=== PATIENT | female | born 1995 | race Caucasian/White ===

== ENCOUNTER → 2017-09-03 | Outpatient (CLI) | payer MEDICAID, SELFPAY | PROVIDERS: Visit Provider Nurse Practitioner Obstetrics & Gynecology | DX: Z30.09 Encounter for other general counseling and advice on contraception (principal); Z01.812 Encounter for preprocedural laboratory examination | CPT/HCPCS: 36415; 80048; 84703; 85025 ==

== ENCOUNTER → 2017-10-01 09:52 | Outpatient (CLI) | payer MEDICAID, SELFPAY ==
--- NOTE | 2017-10-01 09:58 | US_ITS ---
HISTORY: ITS.REASON: RT UPPER QUAD PAIN ORDERING PHYSICIAN: Jw Askew MD PATIENT AGE: 22 years COMPARISON: None FINDINGS: PANCREAS: Unremarkable. No obvious mass or abnormal fluid collection. No ductal dilatation LIVER: No focal liver lesions demonstrated. Homogeneous echogenicity. No intrahepatic biliary ductal dilatation evident RIGHT KIDNEY: Unremarkable. Normal size and echogenicity. No hydronephrosis GALLBLADDER: Wall echo shadow sign present in the gallbladder consistent with gallbladder filled with stones. Common bile duct is within normal limits. No gallbladder wall thickening or pericholecystic fluid. IMPRESSION: Cholelithiasis
== END ==
PROVIDERS: Family Provider Internal Medicine Adolescent Medicine; PCP Internal Medicine Adolescent Medicine; Visit Provider Internal Medicine Adolescent Medicine
DX: R10.11 Right upper quadrant pain (principal)
CPT/HCPCS: 76705

== ENCOUNTER → 2017-12-06 12:20 | Outpatient (CLI) | payer MEDICAID, SELFPAY ==
[2017-12-06 12:48] LABS: Basophils % 0.2 % (0.1-2.0); Eosinophils # 0.3 K/mm3 (0.0-0.4); Eosinophils % 5.1 % (0.1-12.0); Hematocrit 40.2 % (37.0-47.0); Lymphocytes # 1.7 K/mm3 (0.7-4.5); Lymphocytes % 29.8 K/mm3 (10-50); Mean Corpuscular HGB Conc 32.2 g/dL (31.8-35.4); Mean Corpuscular Hemoglobin 29.6 pg (27.0-31.2); Mean Corpuscular Volume 91.8 fl (81-99); Mean Platelet Volume 7.9 fl (7.4-10.4); Monocytes # 0.4 K/mm3 (0.1-1.0); Monocytes % 7.2 % (1.7-9.3); Neutrophils # 3.3 K/mm3 (1.8-7.8); Neutrophils % 57.7 % (37.0-80.0); Platelet Count 299 K/mm3 (142-424); Red Blood Count 4.38 M/mm3 (4.20-5.40); Red Cell Distribution Width 14.3 % (11.5-17.5); White Blood Count 5.7 K/mm3 (4.8-10.8)
[2017-12-06 13:12] LABS: Alanine Aminotransferase 45 U/L (12-78); Albumin Level 3.7 gm/dL (3.4-5.0); Alkaline Phosphatase 78 U/L (46-116); Anion Gap 11.6 mEq/L (5-15); Aspartate Amino Transferase 20 U/L (15-37); Blood Urea Nitrogen 7 mg/dL (7-18); Calcium 8.9 mg/dL (8.5-10.1); Carbon Dioxide 26 mmol/L (21.0-32.0); Chloride 105 mmol/L (98-107); Creatinine,Serum 0.57 mg/dL (0.55-1.02); Estimated Glomerular Filt Rate 130 ml/min (>60); GFR (African American) 158 ML/MIN (>60); Globulin 3.6 gm/dl (1.3-3.2); Glucose 85 mg/dL (74-106); Potassium 3.6 mmoL/L (3.5-5.1); Sodium 139 mmol/L (136-145); Total Protein,Serum 7.3 gm/dL (6.4-8.2)
[2017-12-06 13:36] LABS: HCG Qualitative, Serum Negative (Negative)
== END ==
PROVIDERS: Visit Provider Surgery
DX: Z01.818 Encounter for other preprocedural examination (principal); K80.10 Calculus of gallbladder with chronic cholecystitis without obstruction
CPT/HCPCS: 36415; 80053; 84703; 85025

== ENCOUNTER 2017-12-13 10:44 | Day surgery (SDC) | payer MEDICAID, SELFPAY ==
[2017-12-12 11:45] VITALS: BMI 26.7
[2017-12-13] VITALS (12 sets, daily range): BP systolic 112–146; BP diastolic 62–93; PULSE 57–82; RESP 12–22; TEMP 36.6–43; O2SAT 98–100
--- NOTE | 2017-12-13 13:51 | HMH.ANESCL ---
[facility] Anesthesia Checklist - Patient Identification Patient Identification: Arm Band, Verbal (Name & ) - Structural Data Admitted From: Home Consent for Planned Operative Procedure(s) Verified: Yes Verified Documents: Surgical Consent, History and Physical - NPO Status Verified Time NPO: 00:00 - Additional verifications Patient : No Anesthesia Reactions: No - Airway Assessment C-Spine Mobility Assessed: Yes TMJ Mobility Assessed: Yes Dentition: Good Dentition - Neurological Assessment Level of Consciousness: Awake Hx Seizures: No Numbness or tingling in extremities: No - Anesthesia Plan Anesthesia Risk discussed: Yes Anesthesia Plan: Verified ASA Class: II Anesthesia Type: General [facility] Anesthesia HX I have reviewed the patient's past medical history: Yes Medical History: Reports:: MRSA ( years ago ) Denies:: Cancer, Diabetes Mellitus Type 1, Diabetes Mellitus Type 2, Seizures Other Medical History: Denies: Blood Transfusion Reaction Comment: positive for smoking Other Surgeries: Yes: Tubal Ligation Amputation: No Fractures: No *Family Hx:: Hypertension, Cancer
--- NOTE | 2017-12-13 13:55 | P.PN_ITS ---
[facility] Anesthesia Checklist - Patient Identification Patient Identification: Arm Band, Verbal (Name & ) - Structural Data Admitted From: Home Consent for Planned Operative Procedure(s) Verified: Yes Verified Documents: Surgical Consent, History and Physical - NPO Status Verified Time NPO: 00:00 - Additional verifications Patient : No Anesthesia Reactions: No - Airway Assessment C-Spine Mobility Assessed: Yes TMJ Mobility Assessed: Yes Dentition: Good Dentition - Neurological Assessment Level of Consciousness: Awake Hx Seizures: No Numbness or tingling in extremities: No - Anesthesia Plan Anesthesia Risk discussed: Yes Anesthesia Plan: Verified ASA Class: II Anesthesia Type: General [facility] Anesthesia HX I have reviewed the patient's past medical history: Yes Medical History: Reports:: MRSA ( years ago ) Denies:: Cancer, Diabetes Mellitus Type 1, Diabetes Mellitus Type 2, Seizures Other Medical History: Denies: Blood Transfusion Reaction Comment: positive for smoking Other Surgeries: Yes: Tubal Ligation Amputation: No Fractures: No *Family Hx:: Hypertension, Cancer
--- NOTE | 2017-12-13 14:37 | HMH.OPNOTE ---
Date of procedure: 12/13/17 Pre-op Diagnosis:: Chronic calculus cholecystitis Post-op Diagnosis:: Same Procedure performed:: Laparoscopic cholecystectomy Surgeon:: Leo Key MD [employer]:: Terence Smith Anesthesia: GETA Estimated blood loss (mL): 10 Operative findings:: Gallbladder essentially full of stones Significant soft tissue thickening in and around the infundibulum Operative note:: After informed consent was obtained, the patient was taken to the operating room and placed in the supine position. General anesthesia was induced and the abdomen was prepped and draped in a sterile fashion. After infiltration with local anesthetic an infraumbilical incision was made. A Veress needle was placed in position. The abdomen was insufflated. A 5 mm optical trocar was placed in position. Under direct visualization, a 12 mm trocar was placed in the subxiphoid position and 2 additional 5 mm trocars were placed in the right upper quadrant. The gallbladder was elevated up and over the liver margin. The tissue around the cystic duct was carefully dissected. This tissue and all surrounding tissue was very thickened and dissection was very difficult. The decision was made to transect the gallbladder at the infundibulum and control the stump with Endoloops (?2). Harmonic leah were then utilized to dissect the gallbladder away from the liver margin with careful attention to the control of the cystic artery. The gallbladder was placed in a retrieval bag and removed through the subxiphoid trocar site. The right upper quadrant was thoroughly irrigated. No active bleeding or bile leak was noted. Fascia at the subxiphoid trocar site was reapproximated utilizing 0 Ethibond. The remaining trocars were removed. All wounds were irrigated and skin was closed with 4-0 Monocryl in a subcuticular fashion. Steri-Strips were applied. The patient's anesthetic agents were reversed and extubation was completed prior to transfer to recovery in stable condition. Condition: stable Disposition: PACU Specimens:: Gallbladder and contents Complications:: No immediate
--- NOTE | 2017-12-13 14:49 | HMH.ANESI ---
[facility] Anesthesia Record Part I Intake, IV Amount: 1,500 Estimated blood loss (mL): 0 Urine output (mL): 0 Blood Pressure: 135/82 SaO2: 100 Pulse Rate: 57 Respiratory Rate: 12 Temperature: 97.8 F Patient is:: Awake, Stable Stable to PACU at:: 14:50
--- NOTE | 2017-12-13 14:50 | P.PN_ITS ---
[facility] Anesthesia Record Part II Discharge Time: 15:20 Destination: [facility] PACU nurse assessment reviewed?: Yes Patient Condition:: Good Anesthesia Complications:: None
--- NOTE | 2017-12-13 14:50 | HMH.ANESII ---
[facility] Anesthesia Record Part II Discharge Time: 15:20 Destination: [facility] PACU nurse assessment reviewed?: Yes Patient Condition:: Good Anesthesia Complications:: None
--- NOTE | 2017-12-13 16:19 | PC.NURSE ---
2 lortab 5/325 given per md orders. see emar
== END 2017-12-13 16:15 | disposition home or self-care (01) ==
LOC: OR 10:45
PROVIDERS: Family Provider Internal Medicine Adolescent Medicine; PCP Internal Medicine Adolescent Medicine; Visit Provider Surgery
PROC: 0FT44ZZ Resection of Gallbladder, Percutaneous Endoscopic Approach (ICD-10-PCS; CPT 47562; principal; 2017-12-13 12:00)
DX: K80.10 Calculus of gallbladder with chronic cholecystitis without obstruction (principal)
CPT/HCPCS: 47562; 96374; J2405

== ENCOUNTER → 2020-12-05 08:56 | Outpatient (CLI) | payer MEDICAID, SELFPAY ==
--- NOTE | 2020-12-05 08:59 | US_ITS ---
PROCEDURE: US ABDOMEN LIMITED CLINICAL INDICATION: CIRRHOSIS OF LIVER COMPARISON: US [facility] US abdomen limited from 10/01/2017 FINDINGS: PANCREAS: The visualized pancreas is unremarkable. No obvious mass or abnormal fluid collection. No ductal dilatation LIVER: No focal liver lesions demonstrated. Homogeneous echotexture of the liver is noted. The common bile duct is distended measuring 1 centimeter. There is a focal hyperechogenicity noted in the distal common bile duct measuring 0.9 centimeters, likely represents a CBD calculus. There is mild intrahepatic ductal dilation. There is appropriate direction of blood flow within a non dilated portal vein RIGHT KIDNEY: Unremarkable. Normal size and echogenicity. No hydronephrosis GALLBLADDER: The gallbladder is surgically absent. IMPRESSION: CBD calculus measuring 0.9 centimeters, causes mild CBD dilatation. Mild intrahepatic ductal dilation is noted. Dictated by: Ember Marie 12/05/2020 11:53 Ember Marie in [facility] 12/05/2020 11:53
== END ==
PROVIDERS: PCP Internal Medicine Gastroenterology; Visit Provider Internal Medicine Gastroenterology
DX: K74.60 Unspecified cirrhosis of liver (principal)
CPT/HCPCS: 76705

== ENCOUNTER 2021-01-23 14:34 | Emergency (ER) | payer OTHER, SELFPAY ==
[2021-01-23 14:42] VITALS: BP 115/53; PULSE 66; RESP 16; TEMP 36.8; O2SAT 100; BMI 25.5
--- NOTE | 2021-01-23 15:21 | XR_ITS ---
PROCEDURE: XR LUMBAR SPINE 2-3V CLINICAL INDICATION: back pain, sciatica COMPARISON: No exams were available for comparison FINDINGS: Alignment: Normal alignment. Bony structures: No fracture or dislocation. No lytic or blastic change. Disc spaces: No significant degenerative change. The disc spaces are preserved. Additional findings: IMPRESSION: No acute findings. Dictated by: Paulino Aguiar MD 01/23/2021 16:18 Paulino Aguiar MD in [facility] 01/23/2021 16:18
--- NOTE | 2021-01-23 15:23 | HMH.EDGENADL ---
ED Disposition Clinical Impression: Left-sided low back pain with sciatica Qualifiers: Chronicity: acute Sciatica laterality: sciatica of left side Qualified Code(s): M54.42 - Lumbago with sciatica, left side Disposition: Home, Self-Care Condition on Discharge: Fair Instructions: DI for Sciatica, DI for Back Pain With Sciatica Additional Instructions: You have been evaluated for low back pain, left-sided sciatica. Please take anti-inflammatories and prednisone. Follow-up with your primary care doctor in 24 to 48 hours. Return to the emergency department if you have new or worsening pain, numbness or weakness in your legs or genital area. Referrals: wJ Askew MD [Primary Care Provider] - Time of Disposition: 16:47 - Critical Care Critical Care Time: No Attestation: On 01/23/21, the high probability of a clinically significant, sudden or life threatening deterioration of the following system(s) required my full and direct attention, intervention and personal management. The time I documented below is in addition to time spent performing reported procedures but includes the following listed in this critical care notation. Medical Decision Making - Medical Records Medical records reviewed: Yes: I reviewed the patient's medical records. - Brian Inquiry Pt receiving controlled substance: No Vital Signs: 01/23/21 14:42 01/23/21 17:02 Temperature 98.2 F 97.8 F Temperature Source Oral Oral Pulse Rate 48 L Pulse Rate [Left] 66 Respiratory Rate 16 18 Blood Pressure 97/60 L Blood Pressure [Right Arm] 115/53 L Blood Pressure Mean [Right Arm] 73 Blood Pressure Source Automatic Cuff Blood Pressure Source [Right Arm] Automatic Cuff Blood Pressure Position Sitting Blood Pressure Position [Right Arm] Sitting 02 Sat by Pulse Oximetry 100 Oxygen Delivery Method Room Air Room Air - Lab Data Lab Results 01/23/21 16:10: Urine Color Yellow, Urine Appearance Clear, Urine pH 6.0, Ur Specific [place] 1.025, Urine Protein Negative, Urine Glucose (UA) Negative, Urine Ketones Negative, Urine Blood Negative, Urine Nitrate Negative, Urine Bilirubin Negative, Urine Urobilinogen 2.0, Ur Leukocyte Esterase Negative, Urine RBC Occasional, Urine WBC 3-5, Ur Squamous Epith Cells 3-5, Urine Bacteria Trace 01/23/21 16:10: Urine HCG, Qual Negative Orders (Tests/Meds): ED MEDICATIONS Discontinued Medications Generic Name Dose Route Start Last Admin Trade Name Carlos PRN Reason Stop Dose Admin Ketorolac Tromethamine 15 mg 01/23/21 15:22 01/23/21 15:46 Ketorolac 30mg/Ml Vial IM 01/23/21 15:23 15 mg ONCE ONE Administration Methylprednisolone Sodium Succinate 40 mg 01/23/21 15:23 01/23/21 15:45 Methylprednisolone Sod Succ 40mg Vial IM 01/23/21 15:24 40 mg ONCE ONE Administration Medical Decision Narrative: In summary this is a 25-year-old female presenting to the emergency department with low back pain, sciatica on the left. Clinically stable on arrival. Vital signs within normal limits. Description of pain is not consistent with cauda equina syndrome. No saddle anesthesia. No changes in bowel or bladder habits. No red flag signs for spinal epidural abscess or other infection, including fevers and chills. No IV drug use. Will obtain screening plain film x-rays of the lumbar spine, urinalysis, urine test. Patient given 15 mg Toradol and 40 mg Solu-Medrol X-rays reassuring. On reassessment patient feeling better. Counseled her that she likely has sciatic back pain. Recommended close follow-up with her PCP. Given strict return precautions for any new or worsening symptoms, numbness or weakness in her legs or genital area. Given prescriptions for prednisone and 600 mg ibuprofen. Patient comfortable with plan and agreeable. General Adult HPI - General Chief complaint: Extremity Problem,Nontraumatic Stated complaint: back pain, left leg pain Time Seen by Provider: 0
[2021-01-23 16:20] LABS: Microscopic, Urine URINE MICROSCOPIC (MICROSCOPIC)
[2021-01-23 16:27] LABS: Appearance,Urine CLEAR (Clear); Bilirubin,Urine Negative (Negative); Blood, Urine Negative (Negative); Color,Urine YELLOW (Yellow); Glucose,Urine (UA) Negative (Negative); Ketones,Urine Negative (Negative); Leukocyte Esterase,Urine Negative (Negative); Nitrate,Urine Negative (Negative); Protein,Urine Negative (Negative); Specific Gravity, Urine 1.025 (1.005-1.030); Urine Pregnancy, HCG Qual. Negative (Negative)
[2021-01-23 16:41] LABS: Bacteria,Urine Trace /lpf; RBC,Urine Occasional #/hpf (0-3)
[2021-01-23 17:02] VITALS: BP 97/60; PULSE 48; RESP 18; TEMP 36.6; O2SAT 100
== END 2021-01-23 17:04 | disposition home or self-care (01) ==
PROVIDERS: Emergency Provider Emergency Medicine; PCP Internal Medicine Adolescent Medicine
DX: M54.42 Lumbago with sciatica, left side (principal); F17.290 Nicotine dependence, other tobacco product, uncomplicated
CPT/HCPCS: 72100; 81001; 81025; 96372; 99282

== ENCOUNTER → 2021-06-13 12:41 | Outpatient (CLI) | payer OTHER, SELFPAY ==
[2021-06-13 13:00] LABS: Basophils % 0.4 % (0.1-2.0); Eosinophils # 0.2 K/mm3 (0.0-0.4); Eosinophils % 4.1 % (0.1-12.0); Hematocrit 41.6 % (37.0-47.0); Hemoglobin 13.9 g/dL (12.2-16.2); Lymphocytes # 1.8 K/mm3 (0.7-4.5); Mean Corpuscular HGB Conc 33.5 g/dL (31.8-35.4); Mean Corpuscular Hemoglobin 33.1 pg (27.0-31.2); Mean Platelet Volume 8.2 fl (7.4-10.4); Monocytes # 0.4 K/mm3 (0.1-1.0); Monocytes % 7.3 % (1.7-9.3); Neutrophils # 2.9 K/mm3 (1.8-7.8); Neutrophils % 55.2 % (37.0-80.0); Platelet Count 311 K/mm3 (142-424); Red Cell Distribution Width 12.9 % (11.5-17.5); White Blood Count 5.3 K/mm3 (4.8-10.8)
[2021-06-13 13:20] LABS: Alanine Aminotransferase 16 U/L (12-78); Albumin/Globulin Ratio 1.6 (1.1-1.8); Alkaline Phosphatase 59 U/L (38-126); Anion Gap 8.9 mEq/L (5-15); Aspartate Amino Transferase 21 U/L (14-36); Bilirubin,Total 1.1 mg/dl (0.2-1.3); Blood Urea Nitrogen 5 mg/dl (7-17); Calcium 9.1 mg/dl (8.4-10.2); Carbon Dioxide 24 mmol/L (22.0-30.0); Chloride 109 mmol/L (98-107); Estimated Glomerular Filt Rate 191 ml/min (>60); GFR (African American) 232 ML/MIN (>60); Globulin 2.5 g/dL (1.3-3.2); Glucose 90 mg/dl (74-100); Potassium 3.9 mmoL/L (3.5-5.1); Sodium 138 mmol/L (136-145); Total Protein,Serum 6.5 g/dl (6.3-8.2)
== END ==
PROVIDERS: Visit Provider Internal Medicine Gastroenterology
DX: B18.1 Chronic viral hepatitis B without delta-agent (principal)
CPT/HCPCS: 36415; 80053; 85025

== ENCOUNTER 2021-09-26 18:38 | Emergency (ER) | payer OTHER, SELFPAY ==
[2021-09-26 19:35] VITALS: BP 135/82; PULSE 67; RESP 19; TEMP 37.1; O2SAT 100; BMI 25.8
--- NOTE | 2021-09-26 20:35 | CT_ITS ---
PROCEDURE INFORMATION: Exam: CT Abdomen And Pelvis With Contrast Exam date and time: 09/26/2021 8:35 PM Age: 26 years old Clinical indication: Nausea and vomiting; Prior surgery; Surgery type: Tubal; Additional info: N/v/d for 6 day TECHNIQUE: Imaging protocol: Computed tomography of the abdomen and pelvis with contrast. Radiation optimization: All CT scans at this facility use at least one of these dose optimization techniques: automated exposure control; mA and/or kV adjustment per patient size (includes targeted exams where dose is matched to clinical indication); or iterative reconstruction. Contrast material: ISOVUE; Contrast volume: 75 ml; Contrast route: IV; COMPARISON: ABDPELW CT abdomen pelvis w con 12/26/2017 7:07 PM FINDINGS: Liver: Normal. No mass. Gallbladder and bile ducts: Cholecystectomy. Pancreas: Normal. No ductal dilation. Spleen: Normal. No splenomegaly. Adrenal glands: Normal. No mass. Kidneys and ureters: Normal. No hydronephrosis. Stomach and bowel: Unremarkable. No obstruction. No mucosal thickening. Appendix: No evidence of appendicitis. Intraperitoneal space: Unremarkable. No free air. No significant fluid collection. Vasculature: Unremarkable. No abdominal aortic aneurysm. Lymph nodes: Unremarkable. No enlarged lymph nodes. Urinary bladder: Urinary bladder decompressed. Reproductive: Unremarkable as visualized. Bones/joints: Unremarkable. No acute fracture. Soft tissues: Unremarkable. IMPRESSION: No acute findings.
[2021-09-26 21:11] LABS: Basophils # 0.1 K/mm3 (0-0.2); Basophils % 1.4 % (0.1-2.0); Eosinophils # 0.1 K/mm3 (0.0-0.4); Eosinophils % 1.9 % (0.1-12.0); Hemoglobin 14.2 g/dL (12.2-16.2); Lymphocytes # 0.8 K/mm3 (0.7-4.5); Lymphocytes % 20.6 % (10-50); Mean Corpuscular Hemoglobin 32.8 pg (27.0-31.2); Mean Corpuscular Volume 99.4 fl (81-99); Mean Platelet Volume 8.2 fl (7.4-10.4); Monocytes # 0.2 K/mm3 (0.1-1.0); Monocytes % 4.7 % (1.7-9.3); Neutrophils # 2.9 K/mm3 (1.8-7.8); Neutrophils % 71.5 % (37.0-80.0); Platelet Count 182 K/mm3 (142-424); Red Blood Count 4.33 M/mm3 (4.20-5.40); Red Cell Distribution Width 12.4 % (11.5-17.5); White Blood Count 4.1 K/mm3 (4.8-10.8)
[2021-09-26 21:21] LABS: Influenza A, PCR Not Detected (NotDetected); Influenza B, PCR Not Detected (NotDetected)
[2021-09-26 21:27] LABS: Microscopic, Urine URINE MICROSCOPIC (MICROSCOPIC)
[2021-09-26 21:37] LABS: Appearance,Urine TURBID (Clear); Bilirubin,Urine Negative (Negative); Blood, Urine 3+ (Negative); Color,Urine RED (Yellow); Glucose,Urine (UA) Negative (Negative); Ketones,Urine 2+ (Negative); Leukocyte Esterase,Urine 1+ (Negative); Nitrate,Urine POSITIVE (Negative); PH,Urine 6.5 (5.0-8.5); Protein,Urine 2+ (Negative); Specific Gravity, Urine 1.025 (1.005-1.030)
[2021-09-26 21:39] LABS: Alanine Aminotransferase 60 U/L (12-78); Albumin Level 4.2 g/dl (3.5-5.0); Albumin/Globulin Ratio 1.5 (1.1-1.8); Alkaline Phosphatase 63 U/L (38-126); Amylase 47 U/L (30-110); Anion Gap 9.2 mEq/L (5-15); Aspartate Amino Transferase 58 U/L (14-36); Blood Urea Nitrogen 7 mg/dl (7-17); Calcium 8.9 mg/dl (8.4-10.2); Carbon Dioxide 28 mmol/L (22.0-30.0); Chloride 104 mmol/L (98-107); Creatinine Clearance Estimated 216 mL/min (50-200); Estimated Glomerular Filt Rate 147 ml/min (>60); GFR (African American) 178 ML/MIN (>60); Globulin 2.8 g/dL (1.3-3.2); Glucose 124 mg/dl (74-100); Lipase 35 U/L (23-300); Potassium 3.2 mmoL/L (3.5-5.1); Sodium 138 mmol/L (136-145)
[2021-09-26 21:42] LABS: Adenovirus F 40/41, stool Not Detected (NotDetected); Astrovirus Not Detected (NotDetected); Campylobacter Not Detected (NotDetected); Cryptosporidium Not Detected (NotDetected); Cyclospora Cayetanesis Not Detected (NotDetected); Entamoeba histolytica Not Detected (NotDetected); Enteroaggregative E coli Not Detected (NotDetected); Enteropathogenic E coli Not Detected (NotDetected); Enterotoxigenic E coli Not Detected (NotDetected); Giardia lamblia Not Detected (NotDetected); Norovirus Not Detected (NotDetected); Plesimonas Shigalloides, PCR Not Detected (NotDetected); Rotavirus A Not Detected (NotDetected); Salmonella, PCR Not Detected (NotDetected); Sapovirus Not Detected (NotDetected); Shiga-like toxin E coli Not Detected (NotDetected); Shigella Enterovasive E coli Not Detected (NotDetected); Vibrio Cholerae Not Detected (NotDetected); Vibrio, PCR Not Detected (NotDetected); Yersinia Entercolitica, PCR Not Detected (NotDetected)
[2021-09-26 21:45] LABS: C-Reactive Protein 0.5 mg/L (0-4)
[2021-09-26 21:49] LABS: RBC,Urine TNTC #/hpf (0-3)
[2021-09-26 21:54] LABS: Erythrocyte Sedimentation Rate 11 mm/hr (0-20)
[2021-09-26 22:22] LABS: Coronavirus 19, PCR Detected (NotDetected)
--- NOTE | 2021-09-26 22:29 | PC.NURSE ---
pt states she is feeling much better and ready to go home . Pt states she would like to go ahead and go without receiving her diarrhea panel results, MD notified.
--- NOTE | 2021-09-26 22:35 | HMH.EDNVD ---
ED Disposition Clinical Impression: COVID-19 Disposition: Home, Self-Care Condition on Discharge: Good Instructions: DI for Nausea -- Adult, DI for COVID-19 (Suspected or Confirmed ) Additional Instructions: fluids and call pcp for follow up -and recheck if needed Prescriptions: dexAMETHasone [Decadron] 6 mg PO DAILY #6 tab [facility]: [id number] Ondansetron [Zofran 4mg ODT] 4 mg PO TIDP PRN #21 tab PRN Reason: Nausea And Vomiting Transmission Status[facility] Referrals: Jw Askew MD [Primary Care Provider] - - Critical Care Critical Care Time: No Attestation: On 09/26/21, the high probability of a clinically significant, sudden or life threatening deterioration of the following system(s) required my full and direct attention, intervention and personal management. The time I documented below is in addition to time spent performing reported procedures but includes the following listed in this critical care notation. Medical Decision Making - Medical Records Medical records reviewed: Yes: I reviewed the patient's medical records. - Brian Inquiry Pt receiving controlled substance: No Vital Signs: 09/26/21 19:35 Temperature 98.8 F Temperature Source Oral Pulse Rate [Right] 67 Respiratory Rate 19 Blood Pressure [Right Arm] 135/82 Blood Pressure Mean [Right Arm] 99 02 Sat by Pulse Oximetry 100 Oxygen Delivery Method Room Air - Lab Data Lab results reviewed: Yes: I reviewed the patient's lab results. Lab Results 09/26/21 20:40: Urine Color Red, Urine Appearance Turbid, Urine pH 6.5, Ur Specific [place] 1.025, Urine Protein 2+, Urine Glucose (UA) Negative, Urine Ketones 2+, Urine Blood 3+, Urine Nitrate Positive, Urine Bilirubin Negative, Urine Urobilinogen 1.0, Ur Leukocyte Esterase 1+ A, Urine RBC Tntc 09/26/21 20:40: WBC 4.1 L, RBC 4.33, Hgb 14.2, Hct 43.0, MCV 99.4 H, MCH 32.8 H, MCHC 33.0, RDW 12.4, Plt Count 182, MPV 8.2, Neut % (Auto) 71.5, Lymph % (Auto) 20.6, [place] % (Auto) 4.7, Eos % (Auto) 1.9, Baso % (Auto) 1.4, Neut # (Auto) 2.9, Lymph # (Auto) 0.8, [place] # (Auto) 0.2, Eos # (Auto) 0.1, Baso # (Auto) 0.1, ESR 11 09/26/21 20:40: Sodium 138, Potassium 3.2 L, Chloride 104, Carbon Dioxide 28, Anion Gap 9.2, BUN 7, Creatinine 0.50 L, Estimated Creat Clear 216, Estimated GFR 147, Est GFR ( Amer) 178, Glucose 124 H, Calcium 8.9, Total Bilirubin 1.0, AST 58 H, ALT 60, Alkaline Phosphatase 63, C-Reactive Protein 0.5, Total Protein 7.0, Albumin 4.2, Globulin 2.8, Albumin/Globulin Ratio 1.5, Amylase 47, Lipase 35 09/26/21 20:40: SARS-CoV-2 (PCR) Detected A, Influenza A Untype (PCR) Not detected, Influenza Type B (PCR) Not detected Result diagrams: 09/26/21 20:40 09/26/21 20:40 Orders (Tests/Meds): ED MEDICATIONS Generic Name Dose Route Start Last Admin Trade Name Freq PRN Reason Stop Dose Admin Sodium Chloride 1,000 mls @ 999 mls/hr 09/26/21 20:45 09/26/21 20:53 Sod Chlor 0.9% 1000ml Bag IV 09/26/21 21:45 999 mls/hr .Q1H1M ADELFO Administration Sodium Chloride 8 ml 09/26/21 20:38 09/26/21 20:53 Sodium Chloride 0.9% 10ml Vial IV 10/26/21 20:37 8 ml NEEDED PRN Administration dilute pepcid Discontinued Medications Generic Name Dose Route Start Last Admin Trade Name Freq PRN Reason Stop Dose Admin Famotidine 20 mg 09/26/21 20:38 09/26/21 20:52 Famotidine 20mg/2ml Vial IV 09/26/21 20:39 20 mg ONCE ONE Administration Hydromorphone HCl 1 mg 09/26/21 21:18 09/26/21 21:31 Hydromorphone 2mg/Ml Syringe IV 09/26/21 21:19 Not Given ONCE ONE Iopamidol 75 ml 09/26/21 21:33 09/26/21 21:37 Iopamidol-370 (76%);100ml Bottle IV 09/26/21 21:34 75 ml ONCE ONE Administration Ketorolac Tromethamine 30 mg 09/26/21 20:37 09/26/21 20:52 Ketorolac 30mg/Ml Vial IV 09/26/21 20:38 30 mg ONCE ONE Administration Metoclopramide HCl 10 mg 09/26/21 20:38 09/26/21 20:53
[2021-09-26 22:37] VITALS: BP 124/78; PULSE 64; RESP 18; TEMP 36.9; O2SAT 99
[2021-09-26 22:38] LABS: Procalcitonin < 0.030 ng/mL (0.0-2.0)
[2021-09-27 00:21] LABS: Clostridium Difficile A/B, PCR Detected (NotDetected)
--- NOTE | 2021-09-27 16:52 | PC.NURSE ---
Called and spoke with patient about her diarrhea panel results and advised her I would be calling in a prescription for flagyl for her. She requested that it be called into [facility]. Called and spoke with pharmacist at about prescription.
== END 2021-09-26 22:50 | disposition home or self-care (01) ==
PROVIDERS: Emergency Provider Emergency Medicine; PCP Internal Medicine Adolescent Medicine
DX: U07.1 COVID-19 (principal); R42 Dizziness and giddiness; F17.290 Nicotine dependence, other tobacco product, uncomplicated
CPT/HCPCS: 74177; 80053; 81001; 82150; 83690; 84145; 85025; 85651; 86140; 87086; 87507; 96365; 96375; 99283; C9803; J2405; Q9967; U0003; U0005

== ENCOUNTER → 2022-09-24 07:48 | Outpatient (CLI) | payer OTHER, SELFPAY ==
--- NOTE | 2022-09-24 07:52 | US_ITS ---
FINAL REPORT TECHNIQUE: Sonographic images of the right upper quadrant were obtained. CLINICAL HISTORY: HEP B , PATIENT STATED THIS IS A FOLLOW UP COMPARISON: December 05, 2020 FINDINGS: Sonographic images of the right upper quadrant were obtained in the longitudinal and transverse planes. PANCREAS: Unremarkable. LIVER: Homogeneous. No focal hepatic lesion. No intrahepatic biliary ductal dilatation. GALLBLADDER: Surgically absent. . COMMON DUCT: 9 mm. Dilated for age even with prior cholecystectomy. RIGHT KIDNEY: The right kidney measures 11.4 cm. There is no hydronephrosis, mass, or stone. FREE FLUID: None. IMPRESSION: Unremarkable appearance of the liver. Dilated common bile duct even with cholecystectomy. Previously seen duct stone not seen on today's exam. Reviewed, Interpreted and Dictated by Juanita Yang MD Transcribed by Lindsey Bae Authenticated and . [facility]
== END ==
PROVIDERS: PCP Internal Medicine Adolescent Medicine
DX: B18.1 Chronic viral hepatitis B without delta-agent (principal)
CPT/HCPCS: 76705

== ENCOUNTER 2022-10-15 18:13 | Emergency (ER) | payer OTHER, SELFPAY ==
[2022-10-15 18:14] VITALS: BP 131/74; PULSE 77; RESP 20; TEMP 36.7; O2SAT 100; BMI 24.9
--- NOTE | 2022-10-15 19:35 | EXP.UTC ---
Discharge Plan Disposition Patient Disposition: Home, Self-Care Condition: Good Prescriptions Prescriptions: New amoxicillin [amoxicillin] 500 mg tablet 500 mg PO TID 10 Days Qty: 30 0RF benzonatate [benzonatate] 100 mg capsule 100 mg PO TIDP PRN (Reason: Cough) Qty: 30 0RF methylprednisolone 4 mg Tablets,Dose Pack 4 mg PO DIRECTED Qty: 21 0RF No Action tenofovir disoproxil fumarate 300 MG tablet 300 mg PO DAILY MDD 300 Referrals Follow up/Referrals: Jw Askew MD [Primary Care Provider] - See instructions Activity Restrictions/Add. Instructions Additional Instructions/Restrictions: Drink plenty of fluids. Take tylenol or ibuprofen for pain or fever. Take the medications as directed. Follow up with your regular doctor. GO TO THE ER FOR ANY WORSENING SYMPTOMS Throw your tooth brush away and get a new one. Don't start the oral steroids until tomorrow, since you had the shot here today. Clinical Impressions Clinical Impression: Strep throat Stand Alone Forms Stand Alone Forms: Work/School Release Instructions Patient Instructions: Strep Throat, DI for Strep Throat Discharge ED Provider: Armen Cast [facility] General Stated complaint: Sore throat,Left earache Time Seen by Provider: 10/15/22 19:34 History of Present Illness Provider Complaint: She states that for the past 3 days she has had a worsening sore throat, chills, ear pain and malaise. Related Data Home Medications Medication Instructions Recorded Confirmed tenofovir disoproxil fumarate 300 300 mg PO DAILY na 01/23/21 10/08/22 mg tablet Previous Rx's Medication Instructions Recorded amoxicillin 500 mg tablet 500 mg PO TID 10 days #30 tabs 10/15/22 benzonatate 100 mg capsule 100 mg PO TIDP PRN Cough #30 caps 10/15/22 methylprednisolone 4 mg tablets in 4 mg PO DIRECTED #21 tabs 10/15/22 a dose pack Allergies Allergy/AdvReac Type Severity Reaction Status Date / Time No Known Allergies Allergy Verified 10/15/22 19:51 [facility] Disclaimer: The information contained in this section may have been updated after the patient was seen, as this information can be updated by other users. Surgical History H/O tubal ligation History of cholecystectomy [place] teeth removed Family History Other Alcoholism Anemia Asthma Cancer Diabetes Hyperlipidemia Hypertension Substance abuse Thyroid disorder Social History Smoking Status: Current every day smoker tobacco type: e-cigarettes alcohol intake: former substance use type: former substance user and IV drugs current occupational status: unemployed Travel in the last 8 weeks: None household members: significant other housing: house caffeine: Yes ROS Obtained: Yes All systems reviewed & no additional complaints except as documented Constitutional Constitutional: Reports chills and Reports fever(s) Eyes Eyes: Denies eye discharge ENT Ears, Nose, Mouth, and Throat: Reports as per HPI Cardiovascular Cardiovascular: Denies chest pain Respiratory Respiratory: Denies chest congestion and Reports cough Gastrointestinal Gastrointestingal: Reports nausea; Denies abdominal pain, constipation, cramping, diarrhea or vomiting Musculoskeletal Musculoskeletal: Denies arthralgias Integumentary/Breasts Skin/Breast: Denies rash Neurologic Neurologic: Denies paresthesias Physical Exam General General appearance: alert and in no apparent distress Head Head exam: atraumatic, normocephalic and normal inspection Eye Eye exam: Present normal appearance, PERRL and EOMI ENT ENT exam: Present mucous membranes moist and normal external ear exam Expanded ENT Exam TM/Canal exam: Bilateral TM: erythema and bulging Nose exam: Absent sinus tenderness Mouth exa
[2022-10-15 19:42] LABS: UTC Strep Screen (Rapid) Positive (Negative)
[2022-10-15 20:15] VITALS: BP 131/74; PULSE 77; RESP 20; TEMP 36.7; O2SAT 100
== END 2022-10-15 20:15 | disposition home or self-care (01) ==
PROVIDERS: Emergency Provider Nurse Practitioner Family; PCP Internal Medicine Adolescent Medicine
DX: J02.0 Streptococcal pharyngitis (principal)
CPT/HCPCS: 87880; 99212; 99213; G0463

== ENCOUNTER 2022-12-05 13:38 | Emergency (ER) | payer OTHER, SELFPAY ==
[2022-12-05 13:45] VITALS: BP 123/65; PULSE 70; RESP 20; TEMP 36.9; O2SAT 98; BMI 23.3
--- NOTE | 2022-12-05 13:51 | EXP.UTC ---
Discharge Plan Disposition Patient Disposition: Home, Self-Care Condition: Good Prescriptions Prescriptions: New ondansetron 4 mg Tablet,Disintegrating 4 mg PO Q8H PRN (Reason: Nausea) Qty: 12 0RF No Action tenofovir disoproxil fumarate 300 MG tablet 300 mg PO DAILY MDD 300 Referrals Follow up/Referrals: Jw Askew MD [Primary Care Provider] - See instructions Activity Restrictions/Add. Instructions Additional Instructions/Restrictions: Drink plenty of fluids. Take tylenol or ibuprofen for pain or fever. Take the medications as directed. Follow up with your regular doctor. GO TO THE ER FOR ANY WORSENING SYMPTOMS Clinical Impressions Clinical Impression: Acute viral syndrome Instructions Patient Instructions: DI for Viral Syndrome Discharge ED Provider: Armen Cast [facility] General Stated complaint: Shakey, dizzy Time Seen by Provider: 12/05/22 13:56 History of Present Illness Provider Complaint: She states that for the past 1 day she has had chills, body aches and low grade fever. Related Data Home Medications Medication Instructions Recorded Confirmed tenofovir disoproxil fumarate 300 300 mg PO DAILY na 01/23/21 10/31/22 mg tablet Previous Rx's Medication Instructions Recorded ondansetron 4 mg disintegrating 4 mg PO Q8H PRN Nausea #12 tabs 12/05/22 tablet Allergies Allergy/AdvReac Type Severity Reaction Status Date / Time No Known Allergies Allergy Verified 12/05/22 13:54 [facility] Disclaimer: The information contained in this section may have been updated after the patient was seen, as this information can be updated by other users. 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 current occupational status: unemployed Travel in the last 8 weeks: None household members: significant other housing: house caffeine: Yes ROS Obtained: Yes All systems reviewed & no additional complaints except as documented Constitutional Constitutional: Reports chills and Reports fever(s) Eyes Eyes: Denies eye discharge ENT Ears, Nose, Mouth, and Throat: Reports as per HPI Cardiovascular Cardiovascular: Denies chest pain Respiratory Respiratory: Denies chest congestion and Reports cough Gastrointestinal Gastrointestingal: Reports nausea; Denies abdominal pain, constipation, cramping, diarrhea or vomiting Musculoskeletal Musculoskeletal: Denies arthralgias Integumentary/Breasts Skin/Breast: Denies rash Neurologic Neurologic: Denies paresthesias Physical Exam General General appearance: alert and in no apparent distress Head Head exam: atraumatic, normocephalic and normal inspection Eye Eye exam: Present normal appearance, PERRL and EOMI ENT ENT exam: Present normal exam, normal oropharynx, mucous membranes moist, TM's normal bilaterally and normal external ear exam Neck Neck exam: Present normal inspection, full ROM and trachea midline; Absent meningismus or lymphadenopathy Chest Chest inspection: Present normal inspection and symmetric chest wall rise; Absent tenderness Respiratory Respiratory exam: Present normal lung sounds bilaterally; Absent respiratory distress Cardiovascular Cardiovascular exam: Present regular rate and normal rhythm; Absent JVD Abdominal Exam Abdominal exam: Present soft and normal bowel sounds; Absent distention, tenderness or guarding Extremities Exam Extremities exam: Present normal inspection, full ROM and normal
[2022-12-05 14:34] VITALS: BP 123/65; PULSE 70; RESP 20; TEMP 36.9; O2SAT 98
== END 2022-12-05 14:33 | disposition home or self-care (01) ==
PROVIDERS: Emergency Provider Nurse Practitioner Family; PCP Internal Medicine Adolescent Medicine
DX: R42 Dizziness and giddiness (principal); R11.0 Nausea; R50.9 Fever, unspecified; B34.9 Viral infection, unspecified
CPT/HCPCS: 99212; 99214; G0463

== ENCOUNTER 2022-12-07 15:47 | Emergency (ER) | payer OTHER, SELFPAY ==
[2022-12-07 15:49] VITALS: BP 124/67; PULSE 89; RESP 16; TEMP 36.5; O2SAT 99; BMI 23.6
[2022-12-07 16:00] VITALS: BP 120/74; PULSE 77; O2SAT 97
--- NOTE | 2022-12-07 16:00 | HMH.EDGENADL ---
Discharge Plan Disposition Patient Disposition: Home, Self-Care Prescriptions Prescriptions: No Action tenofovir disoproxil fumarate 300 MG tablet 300 mg PO DAILY MDD 300 ondansetron 4 mg Tablet,Disintegrating 4 mg PO Q8H PRN (Reason: Nausea) Qty: 12 0RF Referrals Follow up/Referrals: Jw Askew MD [Primary Care Provider] - See instructions Activity Restrictions/Add. Instructions Additional Instructions/Restrictions: Her momPlease follow-up with your primary care doctor. Your symptoms persist. Please return to the emergency department any worsening symptoms. Clinical Impressions Clinical Impression: Acute viral syndrome, Near syncope Discharge ED Provider: Olivia Johnson General Adult HPI General Chief complaint: Dizziness Stated complaint: dizzy,light headed Time Seen by Provider: 12/07/22 16:00 History of Present Illness HPI narrative: 27-year-old female presenting today with intermittent lightheaded symptoms. She states that earlier in the week on Saturday she started having nonspecific lightheadedness that she describes as feeling like she is in a tunnel with a sensation of feeling like she is in a pass out but she never does lose consciousness. There is no rotary component to this. She states that this is not associated with position. She also states that on Saturday she had some body aches and chills as well as some diarrhea and felt as though she was having COVID which is how she felt in the past went to the urgent treatment clinic and they told her that they would not do any viral testing because it was too early in the course to do anything about it. She denies any chest pain or shortness of breath. She currently is without symptoms. However her most recent episode of lightheaded sensation occurred just prior to arrival. No history of any heart or lung problems. She has no family history of any sudden cardiac . Related Data Home Medications Medication Instructions Recorded Confirmed tenofovir disoproxil fumarate 300 300 mg PO DAILY na 01/23/21 10/31/22 mg tablet Previous Rx's Medication Instructions Recorded ondansetron 4 mg disintegrating 4 mg PO Q8H PRN Nausea #12 tabs 12/05/22 tablet Allergies Allergy/AdvReac Type Severity Reaction Status Date / Time No Known Allergies Allergy Verified 12/05/22 13:54 [facility] Disclaimer: The information contained in this section may have been updated after the patient was seen, as this information can be updated by other users. 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 current occupational status: unemployed Travel in the last 8 weeks: None household members: significant other housing: house caffeine: Yes ROS Obtained: Yes All systems reviewed & no additional complaints except as documented Physical Exam General General appearance: alert ENT ENT exam: Present normal exam and TM's normal bilaterally Respiratory Respiratory exam: Present normal lung sounds bilaterally; Absent respiratory distress, wheezes or stridor Cardiovascular Cardiovascular exam: Present regular rate; Absent tachycardia Abdominal Exam Abdominal exam: Present soft; Absent distention, tenderness, guarding or rebound Neurological Exam Neurological exam: Present alert and oriented X3 Medical Decision Making Brian Inquiry Pt receiving controlled substance: No Vital Signs: 12/07/22 15:49 12/07/22 16:00 12/07/22 16:30
[2022-12-07 16:05] LABS: POC Glucose,Bedside 95 (70-110)
--- NOTE | 2022-12-07 16:06 | PC.NURSE ---
DR KRUSE AT BEDSIDE
[2022-12-07 16:18] LABS: Basophils # 0.1 K/mm3 (0-0.2); Basophils % 0.8 % (0.1-2.0); Eosinophils # 0.3 K/mm3 (0.0-0.4); Eosinophils % 3.9 % (0.1-12.0); Hematocrit 44.7 % (37.0-47.0); Hemoglobin 14.4 g/dL (12.2-16.2); Lymphocytes # 1.6 K/mm3 (0.7-4.5); Lymphocytes % 22.6 % (10-50); Mean Corpuscular HGB Conc 32.1 g/dL (31.8-35.4); Mean Corpuscular Volume 99.5 fl (81-99); Mean Platelet Volume 7.7 fl (7.4-10.4); Monocytes # 0.4 K/mm3 (0.1-1.0); Monocytes % 5.7 % (1.7-9.3); Neutrophils # 4.8 K/mm3 (1.8-7.8); Platelet Count 307 K/mm3 (142-424); Red Cell Distribution Width 12.7 % (11.5-17.5); White Blood Count 7.1 K/mm3 (4.8-10.8)
[2022-12-07 16:20] LABS: Chloride 104 mmol/L (98-107); Potassium 3.9 mmoL/L (3.5-5.1); Sodium 138 mmol/L (136-145)
[2022-12-07 16:23] LABS: Anion Gap 10.9 mEq/L (5-15); Carbon Dioxide 27 mmol/L (22.0-30.0)
[2022-12-07 16:30] VITALS: BP 120/74; PULSE 56; O2SAT 97
--- NOTE | 2022-12-07 16:38 | ECG_ITS ---
APPROVED REPORT Exam: Resting ECG HR:49 bpm ECG Measurements Heart Rate 49 AXES VA 120 P 55 QRSd 87 QRS 68 QT 422 T 60 QTc 392 Conclusion SINUS BRADYCARDIA BORDERLINE ECG UNCONFIRMED REPORT Electronically signed by : Jw Askew MD 12/10/2022 19:53:00
[2022-12-07 16:39] LABS: Troponin I < 0.01 ng/ml (0.00-0.034)
[2022-12-07 16:42] LABS: Coronavirus 19, PCR Not Detected (NotDetected); Influenza A, PCR Not Detected (NotDetected); Influenza B, PCR Not Detected (NotDetected)
--- NOTE | 2022-12-07 16:42 | PC.NURSE ---
covid swab sent to lab at this time
[2022-12-07 16:54] LABS: HCG Qualitative, Serum Negative (Negative)
[2022-12-07 17:00] VITALS: BP 118/71; PULSE 66; O2SAT 100
[2022-12-07 17:24] LABS: Alanine Aminotransferase 23 U/L (12-78); Albumin Level 4.4 g/dl (3.5-5.0); Albumin/Globulin Ratio 1.6 (1.1-1.8); Alkaline Phosphatase 70 U/L (38-126); Aspartate Amino Transferase 23 U/L (14-36); Bilirubin,Total 1.4 mg/dl (0.2-1.3); Blood Urea Nitrogen 9 mg/dl (7-17); Calcium 9.3 mg/dl (8.4-10.2); Creatinine Clearance Estimated 159 mL/min (50-200); Estimated Glomerular Filt Rate 118 ml/min (>60); GFR (African American) 143 ML/MIN (>60); Globulin 2.7 g/dL (1.3-3.2); Glucose 94 mg/dl (74-100); Magnesium 2.1 mg/dl (1.6-2.3); Phosphorous 3.1 mg/dl (2.5-4.5); Total Protein,Serum 7.1 g/dl (6.3-8.2)
[2022-12-07 17:52] VITALS: BP 106/58; PULSE 62; RESP 16; TEMP 36.6; O2SAT 100
== END 2022-12-07 17:55 | disposition home or self-care (01) ==
PROVIDERS: Emergency Provider Student in an Organized Health Care Education/Training Program; PCP Internal Medicine Adolescent Medicine
DX: R55 Syncope and collapse (principal); B34.9 Viral infection, unspecified
CPT/HCPCS: 80053; 82962; 83735; 84100; 84484; 84703; 85025; 93005; 96360; 96374; 99284; 99285; C9803; J2405; U0003; U0005

== ENCOUNTER → 2022-12-10 15:46 | Outpatient (CLI) | payer OTHER, SELFPAY ==
[2022-12-10 17:25] LABS: Alanine Aminotransferase 25 U/L (12-78); Albumin Level 4.4 g/dl (3.5-5.0); Alkaline Phosphatase 68 U/L (38-126); Aspartate Amino Transferase 25 U/L (14-36); Bilirubin,Indirect 1.5 mg/dL (0.0-0.9); Bilirubin,Total 1.5 mg/dl (0.2-1.3); Bilirubin,Unconjugated 1.8 mg/dL (0.0-1.1); Total Protein,Serum 6.9 g/dl (6.3-8.2)
== END ==
PROVIDERS: PCP Internal Medicine Adolescent Medicine; Visit Provider Physician Assistant
DX: L29.9 Pruritus, unspecified (principal)
CPT/HCPCS: 36415; 80076

== ENCOUNTER → 2023-06-14 07:41 | Outpatient (CLI) | payer OTHER, SELFPAY ==
--- NOTE | 2023-06-14 07:55 | XR_ITS ---
FINAL REPORT TECHNIQUE: Sacroiliac joints 3 views CLINICAL HISTORY: LBP W [place] COMPARISON: None FINDINGS: SACROILIAC JOINTS: 3 views of the sacroiliac joints failed to reveal any evidence of acute bony abnormality. No significant degenerative changes noted in the sacroiliac joints. The portions of the pelvis and lower lumbar spine visualized are unremarkable as well. IMPRESSION: Unremarkable sacroiliac joints. Reviewed, Interpreted and Dictated by Jeff Barbosa III, MD Transcribed by Belen Beltran Authenticated and . [facility]
--- NOTE | 2023-06-14 07:55 | XR_ITS ---
FINAL REPORT CLINICAL HISTORY: low back pain COMPARISON: None FINDINGS: 5 views of the lumbar spine were obtained. There is no evidence of fracture or dislocation. Postoperative changes are present in the right upper quadrant of the abdomen. The bowel gas pattern is nonspecific with a large amount of stool present. There is a mild rightward curvature of the lumbar spine. Disc spaces are preserved. No paraspinous soft tissue abnormalities identified. IMPRESSION: Mild rightward curvature of the lumbar spine without acute bony abnormality. Nonspecific gas pattern with large stool burden. Reviewed, Interpreted and Dictated by Jeff Barbosa III, MD Transcribed by Belen Beltran Authenticated and [facility]
[2023-06-14 08:37] LABS: Basophils % 0.2 % (0.1-2.0); Eosinophils # 0.1 K/mm3 (0.0-0.4); Hematocrit 41.5 % (37.0-47.0); Hemoglobin 13.7 g/dL (12.2-16.2); Lymphocytes # 1.1 K/mm3 (0.7-4.5); Lymphocytes % 11.7 % (10-50); Mean Corpuscular HGB Conc 32.9 g/dL (31.8-35.4); Mean Corpuscular Hemoglobin 32.3 pg (27.0-31.2); Mean Corpuscular Volume 98.1 fl (81-99); Monocytes # 0.5 K/mm3 (0.1-1.0); Monocytes % 5.3 % (1.7-9.3); Neutrophils # 7.6 K/mm3 (1.8-7.8); Neutrophils % 81.8 % (37.0-80.0); Platelet Count 288 K/mm3 (142-424); Red Blood Count 4.23 M/mm3 (4.20-5.40); Red Cell Distribution Width 12.7 % (11.5-17.5); White Blood Count 9.3 K/mm3 (4.8-10.8)
[2023-06-14 10:56] LABS: Alanine Aminotransferase 23 U/L (12-78); Albumin Level 4.3 g/dl (3.5-5.0); Albumin/Globulin Ratio 1.6 (1.1-1.8); Alkaline Phosphatase 57 U/L (38-126); Anion Gap 9.8 mEq/L (5-15); Aspartate Amino Transferase 21 U/L (14-36); Bilirubin,Total 1.8 mg/dl (0.2-1.3); Blood Urea Nitrogen 5 mg/dl (7-17); Calcium 9.7 mg/dl (8.4-10.2); Carbon Dioxide 27 mmol/L (22.0-30.0); Chloride 106 mmol/L (98-107); Estimated Glomerular Filt Rate 146 ml/min (>60); GFR (African American) 177 ML/MIN (>60); Globulin 2.7 g/dL (1.3-3.2); Glucose 92 mg/dl (74-100); Magnesium 1.7 mg/dl (1.6-2.3); Potassium 3.8 mmoL/L (3.5-5.1); Sodium 139 mmol/L (136-145)
[2023-06-14 11:26] LABS: Thyroid Stimulating Hormone 0.55 uIU/mL (0.465-4.68)
[2023-06-14 11:45] LABS: Vitamin B12 451 pg/mL (239-931)
[2023-06-14 12:51] LABS: Iron 102 ug/dL (37-170)
[2023-06-14 13:02] LABS: Total Iron Binding Capacity 398 ug/dL (265-497)
[2023-06-14 13:27] LABS: Ferritin 32.4 ng/ml (6.24-137)
== END ==
PROVIDERS: PCP Internal Medicine Adolescent Medicine; Visit Provider Physician Assistant
DX: M54.42 Lumbago with sciatica, left side (principal)
CPT/HCPCS: 36415; 72110; 72202; 80053; 82607; 82728; 83540; 83550; 83735; 84443; 85025

== ENCOUNTER 2023-10-03 13:33 | Outpatient (CLI) | payer OTHER, SELFPAY ==
[2023-10-03 14:03] LABS: INR 1.14 (0.9-1.1); Prothrombin Time 12.2 seconds (10.1-12.5)
[2023-10-03 14:08] LABS: Basophils # 0.1 K/mm3 (0-0.2); Basophils % 0.8 % (0.1-2.0); Eosinophils # 0.4 K/mm3 (0.0-0.4); Eosinophils % 4.4 % (0.1-12.0); Lymphocytes # 1.8 K/mm3 (0.7-4.5); Lymphocytes % 22.4 % (10-50); Mean Corpuscular Hemoglobin 35.4 pg (27.0-31.2); Mean Corpuscular Volume 98.3 fl (81-99); Mean Platelet Volume 7.8 fl (7.4-10.4); Monocytes # 0.6 K/mm3 (0.1-1.0); Monocytes % 6.9 % (1.7-9.3); Neutrophils # 5.2 K/mm3 (1.8-7.8); Neutrophils % 65.5 % (37.0-80.0); Platelet Count 246 K/mm3 (142-424); Red Blood Count 3.96 M/mm3 (4.20-5.40); Red Cell Distribution Width 12.5 % (11.5-17.5)
[2023-10-03 14:12] LABS: Chloride 104 mmol/L (98-107); Potassium 3.6 mmoL/L (3.5-5.1); Sodium 137 mmol/L (136-145)
[2023-10-03 14:14] LABS: Alanine Aminotransferase 26 U/L (12-78); Aspartate Amino Transferase 25 U/L (14-36); Blood Urea Nitrogen 8 mg/dl (7-17); Estimated Glomerular Filt Rate 145 ml/min (>60); GFR (African American) 175 ML/MIN (>60)
[2023-10-03 14:15] LABS: Albumin Level 4.2 g/dl (3.5-5.0); Albumin/Globulin Ratio 1.8 (1.1-1.8); Alkaline Phosphatase 59 U/L (38-126); Anion Gap 11.6 mEq/L (5-15); Bilirubin,Total 1.3 mg/dl (0.2-1.3); Calcium 9.2 mg/dl (8.4-10.2); Carbon Dioxide 25 mmol/L (22.0-30.0); Globulin 2.3 g/dL (1.3-3.2); Glucose 76 mg/dl (74-100); Total Protein,Serum 6.5 g/dl (6.3-8.2)
[2023-10-04 08:01] LABS: Hep A Ab, Total Negative (Negative)
[2023-10-05 16:43] LABS: HBV IU/mL HBV DNA not detected IU/mL (.)
== END 2023-10-03 23:59 ==
PROVIDERS: PCP Internal Medicine Adolescent Medicine; Visit Provider Internal Medicine Gastroenterology
DX: B18.1 Chronic viral hepatitis B without delta-agent (principal); Z86.19 Personal history of other infectious and parasitic diseases
CPT/HCPCS: 36415; 80053; 85025; 85610; 86708; 87517

== ENCOUNTER 2023-10-10 09:20 | Emergency (ER) | payer OTHER, SELFPAY ==
[2023-10-10 09:29] VITALS: BP 138/58; PULSE 71; RESP 16; TEMP 36.7; O2SAT 100; BMI 25.0
--- NOTE | 2023-10-10 09:45 | HMH.EDGENADL ---
Discharge Plan Disposition Patient Disposition: Home, Self-Care Condition: Good Prescriptions Prescriptions: New lidocaine [Lidoderm] 5 % adhesive patch,medicated 1 patch topical DAILY Qty: 15 0RF Rx Instructions: leave on most painful area for up to 12 hrs prednisone 50 mg tablet 50 mg PO DAILY 5 Days Qty: 5 0RF No Action tenofovir disoproxil fumarate 300 MG tablet 300 mg PO DAILY MDD 300 ondansetron 4 mg Tablet,Disintegrating 4 mg PO Q8H PRN (Reason: Nausea) Qty: 12 0RF Referrals Follow up/Referrals: Jw Askew MD [Primary Care Provider] - See instructions Activity Restrictions/Add. Instructions Additional Instructions/Restrictions: You were evaluated in the emergency department today. Please follow-up with your primary care provider for reassessment. 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 Return to the emergency department for new or worsening such as significant worsening pain, numbness, tingling, or other concerns. Clinical Impressions Clinical Impression: Acute right-sided low back pain Stand Alone Forms Stand Alone Forms: Work/School Release Instructions Patient Instructions: DI for Low Back Pain, DI for Acute Pain -- Adult Discharge ED Provider: Leah Cazares General Adult HPI General Chief complaint: PAIN Stated complaint: back pain Time Seen by Provider: 10/10/23 09:29 Mode of Arrival: Ambulatory Source of Information: Patient Limitations: No Limitations Description of Symptoms (Recalled from ER Triage Doc. by RN): pt c/o middle back pain 8/10 with movement and a 3/10 when stationary. pt states the pain is sharp in nature and does not radiate anywhere. pt states this has been ongoing x2 wks. pt denies injury History of Present Illness HPI narrative: This patient is a 28-year-old female with history of hepatitis B presenting to the emergency department for evaluation with concern for right-sided low back pain. She states that it is worse with movement. She states that it is nonradiating. It feels like a tightness/squeezing. No numbness, tingling, saddle anesthesia, incontinence, weakness, or other concerns. No recent fevers, chills, urinary symptoms, or other infectious symptoms. This is been going on approximately 2 weeks. She does note that she has a chronic history of back pain and is about to start physical therapy, however this has been manageable and she has not been able to sleep. She has prior imaging of her spine that has shown arthritis. No recent falls or traumatic injuries noted. Related Data Home Medications Medication Instructions Recorded Confirmed tenofovir disoproxil fumarate 300 300 mg PO DAILY na 01/23/21 10/31/22 mg tablet Previous Rx's Medication Instructions Recorded ondansetron 4 mg disintegrating 4 mg PO Q8H PRN Nausea #12 tabs 12/05/22 tablet lidocaine 5 % topical patch 1 patch topical DAILY #15 ea 10/10/23 (Lidoderm) prednisone 50 mg tablet 50 mg PO DAILY 5 days #5 tabs 10/10/23 Allergies Allergy/AdvReac Type Severity Reaction Status Date / Time No Known Allergies Allergy Verified 12/05/22 13:54 [facility] Disclaimer: The information contained in this section may have been updated after the patient was seen, as this information can be updated by other users. 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 current occupational status: unemployed Travel in the last 8 weeks: None household members: significant other housing: house caffeine: Yes ROS Obtained: Yes All systems reviewed & no additional complaints except as documented Physical Exam General General appearance: alert and in no apparent distress Head Head exam: atraumatic and normocephalic Eye Eye exam: Present normal appearance, PERRL and EOMI ENT ENT exam: Present normal exam, normal oropharynx, mucous membranes moist and normal external ear exam Neck Neck exam: Present normal inspection, full ROM and trachea midline; Absent tenderness Chest Chest inspection: Present normal inspection and symmetric chest wall rise; Absent tenderness Respiratory Respiratory exam: Present normal lung sounds bilaterally; Absent respiratory distress, wheezes, stridor or accessory muscle use Cardiovascular Cardiovascular exam: Present regular rate and normal rhythm Abdominal Exam Abdominal exam: Present soft; Absent distention, tenderness or guarding Extremities Exam Extremities exam: Present normal inspection, full ROM and normal capillary refill; Absent tenderness or edema Back Exam Back exam: Present full ROM and paraspinal tenderness (Right-sided paraspinal at the thoracolumbar junction. No significant midline tenderness.); Absent vertebral tenderness Neurological Exam Neurological exam: Present alert, oriented X3, CN II-XII intact and normal gait; Absent motor sensory deficit Psychiatric Psychiatric exam: Present normal affect and normal mood Skin Skin exam: Present warm and dry Medical Decision Making Medical Records Medical records reviewed: Yes I reviewed the patient's medical records. Brian Inquiry Pt receiving controlled substance: No Vital Signs: 10/10/23 09:29 10/10/23 11:39 Temperature 98.1 F 98.0 F Temperature Source Oral Oral Pulse Rate 60 Pulse Rate [Right] 71 Respiratory Rate 16 16 Blood Pressure 113/64 Blood Pressure [Right Arm] 138/58 L Blood Pressure Mean [Right Arm] 84 Blood Pressure Source Automatic Cuff Blood Pressure Source [Right Arm] Automatic Cuff Blood Pressure Position Sitting Blood Pressure Position [Right Arm] Sitting 02 Sat by Pulse Oximetry 100 Oxygen Delivery Method Room Air Lab Data Lab results reviewed: Yes I reviewed the patient's lab results. Lab Results 10/10/23 10:43: Urine Color Yellow, Urine Appearance Clear, Urine pH 7.0, Ur Specific [place] 1.015, Urine Protein Negative, Urine Glucose (UA) Negative, Urine Ketones Negative, Urine Blood Negative, Urine Nitrate Negative, Urine Bilirubin Negative, Urine Urobilinogen 0.2, Ur Leukocyte Esterase Trace, Urine RBC None, Urine WBC None, Ur Squamous Epith Cells Occasional, Urine Bacteria Trace Orders (Tests/Meds): ED MEDICATIONS Discontinued Medications Generic Name Dose Route Start Last Admin Trade Name Carlos PRN Reason Stop Dose Admin Acetaminophen 1,000 mg 10/10/23 09:44 10/10/23 09:51 Acetaminophen 500mg Tab PO 10/10/23 09:45 1,000 mg ONCE ONE Administration Ketorolac Tromethamine 30 mg 10/10/23 09:44 10/10/23 09:52 Ketorolac 30mg/Ml Vial IM 10/10/23 09:45 30 mg ONCE ONE Administration Lidocaine 1 each 10/10/23 09:44 10/10/23 09:52 Lidocaine 5% Transdermal Patch TP 10/10/23 09:45 1 each ONCE ONE Administration Methocarbamol 500 mg 10/10/23 09:44 10/10/23 09:51 Methocarbamol 500mg Tablet PO 10/10/23 09:45 500 mg ONCE ONE Administration Prednisone 40 mg 10/10/23 09:44 10/10/23 09:51 Prednisone 20mg Tab PO 10/10/23 09:45 40 mg ONCE ONE Administration ORDERS Category Date Time Status UA [Urinalysis and Microscopic] Stat Lab 10/10/23 10:43 Completed Medical Decision Narrative: In summary, this patient is a 28-year-old female presenting to the Emergency Department for evaluation of atraumatic right-sided low back pain. Differential diagnoses considered include but are not limited to musculoskeletal strain/pain, disc herniation, lumbar fracture, pyelonephritis, cystitis, ureterolithiasis. Ruling out the most morbid conditions drove assessment. On exam, the patient is well-appearing. She has had no recent traumatic injuries and has no midline bony tenderness. I considered obtaining CT scan of the lumbar spine, however I do not feel that this would belt changer given this. She is neurologically intact without suggestion of spinal cord compression. No numbness, tingling, saddle anesthesia, or other concerns. No fevers or infectious symptoms, and no urinary symptoms. It is worse with movement and she has right-sided paraspinal tenderness, so I feel that this is likely musculoskeletal. Patient is agreeable to try medications to assess for symptomatic improvement. She was given oral prednisone, IM Toradol, oral Tylenol, oral Robaxin, and a topical Lidoderm patch. On reassessment, patient is resting comfortably with improvement in symptoms. She remains neurologically intact. Given this, feel that she is appropriate for discharge with instructions for supportive management of low back pain at this time. She was given prescription for 5-day course of prednisone as well as Lidoderm patches. She was given instructions for close follow-up with her primary care provider, instructions to continue plan for outpatient PT, and strict return precautions. She was discharged after all questions were answered. Critical Care Critical Care Time Critical Care Time: No
[2023-10-10] MEDS: ACETAMINOPHEN 500MG TAB 1000 MG PO (09:51)
[2023-10-10] MEDS: predniSONE 20MG TAB 40 MG PO (09:51)
[2023-10-10] MEDS: METHOCARBAMOL 500MG TABLET 500 MG PO (09:51)
[2023-10-10] MEDS: LIDOCAINE 5% TRANSDERMAL PATCH 1 EACH TP (09:52)
[2023-10-10] MEDS: KETOROLAC 30MG/ML VIAL 30 MG IM (09:52)
[2023-10-10 10:46] LABS: Microscopic, Urine URINE MICROSCOPIC (MICROSCOPIC)
[2023-10-10 10:52] LABS: Appearance,Urine CLEAR (Clear); Bilirubin,Urine Negative (Negative); Blood, Urine Negative (Negative); Color,Urine YELLOW (Yellow); Glucose,Urine (UA) Negative (Negative); Ketones,Urine Negative (Negative); Leukocyte Esterase,Urine TRACE (Negative); Nitrate,Urine Negative (Negative); Protein,Urine Negative (Negative); Specific Gravity, Urine 1.015 (1.005-1.030); Urobilinogen,Urine 0.2 EU/dl (0.2)
[2023-10-10 11:07] LABS: Bacteria,Urine Trace /lpf; Squamous Epithelial Cell,Urine Occasional #/hpf (0-5)
--- NOTE | 2023-10-10 11:34 | PC.NURSE ---
DR MARINO AT BEDSIDE TO UPDATE PT
[2023-10-10 11:39] VITALS: BP 113/64; PULSE 60; RESP 16; TEMP 36.7; O2SAT 100
== END 2023-10-10 11:40 | disposition home or self-care (01) ==
PROVIDERS: Emergency Provider Emergency Medicine; PCP Internal Medicine Adolescent Medicine
DX: M54.50 Low back pain, unspecified (principal)
CPT/HCPCS: 81001; 96372; 99283

== ENCOUNTER 2023-10-18 14:00 | Outpatient (RCR) | payer OTHER, SELFPAY | END 2023-10-18 15:00 | disposition home or self-care (01) | LOC: PT 14:00 | PROVIDERS: Visit Provider Internal Medicine Adolescent Medicine | DX: M46.1 Sacroiliitis, not elsewhere classified (principal); M54.50 Low back pain, unspecified | CPT/HCPCS: 97163 ==

== ENCOUNTER 2023-10-27 11:56 | Emergency (ER) | payer OTHER, SELFPAY ==
[2023-10-27 12:05] VITALS: BP 106/69; PULSE 69; RESP 18; TEMP 36.6; O2SAT 100; BMI 24.5
--- NOTE | 2023-10-27 12:24 | ED_ITS ---
Discharge Plan Disposition Patient Disposition: Home, Self-Care Condition: Good Prescriptions Prescriptions: New oseltamivir [Tamiflu] 75 mg capsule 75 mg PO Q12H 5 Days Qty: 10 0RF No Action tenofovir disoproxil fumarate 300 MG tablet 300 mg PO DAILY MDD 300 Referrals Follow up/Referrals: Jw Askew MD [Primary Care Provider] - See instructions Activity Restrictions/Add. Instructions Additional Instructions/Restrictions: * Start Tamiflu today if you are going to take it. Discussed risk and possible benefits. * Lots of rest * Increase Fluids water, Gatorade, powerade, pedialyte,if infant/toddler/child * Alternate Tylenol and / or ibuprofen as discussed for fever, aches, chills Follow up IMMEDIATELY with your family doctor for new or worsening Symptoms OR no noticeable improvement over the next 48-72 hours, 911 for difficulty or breathing * You or your child area contagious until no fever, aches, chills for 24 hours with medication for symptoms * Help Prevent the spread of influenza: * ?Wash your hands often. Use soap and water. Wash your hands after you use the bathroom, change a child's diapers, or sneeze. Wash your hands before you prepare or eat food. Use gel hand cleanser that has 60% alcohol, when soap and water are not available. Do not touch your eyes, nose, or mouth unless you have washed your hands first. * Cover your mouth when you sneeze or cough. Cough into a tissue or the bend of your arm. If you use a tissue, throw it away immediately and wash your hands. * Clean shared items with a germ-killing equipment cleaner. Clean table surfaces, doorknobs, and light switches. Do not share towels, silverware, and dishes with people who are sick. Wash bed sheets, towels, silverware, and dishes with soap and water. * Wear a mask over your mouth and nose if you are sick. The face mask may help protect others from becoming infected with the flu. Wear the mask when in common areas of your home or if you seek care with a healthcare provider.Stay away from others if you are sick. Stay at home until 24 hours after your fever and symptoms are gone Clinical Impressions Clinical Impression: Influenza Instructions Patient Instructions: DI for Influenza -- Adult, Influenza, Oseltamivir Discharge ED Provider: Amna Jones [facility] [place] HPI General Stated complaint: body aches, ear pain, fever, chills Mode of Arrival: Ambulatory Source of Information: Patient Limitations: No Limitations Time Seen by Provider: 10/27/23 12:24 Description of Symptoms (Recalled from Triage Doc. by RN): Pt's symptoms are fever, bilatereal ear pain, MOSES, body aches, and runny nose. HEENT Symptoms (Recalled from RN notes): Yes Resp Symptoms (Recalled from RN notes): No Skin Symptoms (Recalled from RN notes): No MS Symptoms (Recalled from RN notes): No Functional Status (Recalled from RN notes): n/a History of Present Illness Provider Complaint: Patient states that yesterday she was feeling achy and having nasal congestion and sneezing states that after she got home she started with body aches, chills, fever, and pain/pressure in her ears States feels like she may have flu or COVID so she came in Related Data Home Medications Medication Instructions Recorded Confirmed tenofovir disoproxil fumarate 300 300 mg PO DAILY na 01/23/21 10/27/23 mg tablet Previous Rx's Medication Instructions Recorded oseltamivir 75 mg capsule (Tamiflu) 75 mg PO Q12H 5 days #10 caps 10/27/23 Allergies Allergy/AdvReac Type Severity Reaction Status Date / Time No Known Allergies Allergy Verified 12/05/22 13:54 Worker's Comp Is this a Worker's Comp case?: No [facility] Disclaimer: The information contained in this section may have been updated after the patient was seen, as this information can be updated by other users. 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 current occupational status: unemployed Travel in the last 8 weeks: None household members: significant other housing: house caffeine: Yes ROS Obtained: Yes All systems reviewed & no additional complaints except as documented and Yes Systems reviewed as appropriate & no additional complaints except as documented Constitutional Constitutional: Reports system reviewed and no additional complaints, except as documented, Reports as per HPI, Reports body ache, Reports chills, Reports fever(s) and Reports headache(s) ENT Ears, Nose, Mouth, and Throat: Reports system reviewed and no additional complaints, except as documented, Reports as per HPI, Reports headache(s), Reports nasal congestion and Reports nasal discharge Cardiovascular Cardiovascular: Reports system reviewed and no additional complaints, except as documented and Reports as per HPI Respiratory Respiratory: Reports system reviewed and no additional complaints, except as documented, Reports as per HPI and Reports cough Gastrointestinal Gastrointestingal: Reports system reviewed and no additional complaints, except as documented and as per HPI Musculoskeletal Musculoskeletal: Reports system reviewed and no additional complaints, except as documented and Reports as per HPI Neurologic Neurologic: Reports headache(s) Physical Exam General General appearance: alert and in no apparent distress ENT ENT exam: Present mucous membranes moist and TM's normal bilaterally Expanded ENT Exam Nose exam: Absent sinus tenderness Throat exam: Present normal inspection Respiratory Respiratory exam: Present normal lung sounds bilaterally; Absent respiratory distress or wheezes Cardiovascular Cardiovascular exam: Present regular rate, normal rhythm and normal heart sounds Abdominal Exam Abdominal exam: Present soft and normal bowel sounds; Absent distention or tenderness Neurological Exam Neurological exam: Present alert, oriented X3 and normal gait Medical Decision Making Brian Inquiry Pt receiving controlled substance: No Brian was queried for this patient: No Vital Signs: 10/27/23 12:05 Temperature 97.9 F Temperature Source Oral Pulse Rate [Right Radial] 69 Respiratory Rate 18 Blood Pressure [Right Arm] 106/69 L Blood Pressure Mean [Right Arm] 81 Blood Pressure Source [Right Arm] Automatic Cuff Blood Pressure Position [Right Arm] Sitting 02 Sat by Pulse Oximetry 100 Oxygen Delivery Method Room Air Lab Data Lab results reviewed: Yes I reviewed the patient's lab results. Orders (Tests/Meds): ORDERS Category Date Time Status Rapid PCR Covid and Flu A/B Stat Lab 10/27/23 12:20 Ordered
[2023-10-27 12:36] LABS: UTC Influenza A Antigen Negative (Negative); UTC Influenza B Antigen Positive (Negative)
[2023-10-27 12:43] VITALS: BP 106/69; PULSE 60; RESP 18; TEMP 36.6; O2SAT 100
== END 2023-10-27 12:43 | disposition home or self-care (01) ==
PROVIDERS: Emergency Provider Nurse Practitioner; PCP Internal Medicine Adolescent Medicine
DX: J10.1 Influenza due to other identified influenza virus with other respiratory manifestations (principal); R50.9 Fever, unspecified; R09.81 Nasal congestion; H92.03 Otalgia, bilateral
CPT/HCPCS: 87804; 99212; 99214; G0463

== ENCOUNTER 2024-05-25 09:29 | Outpatient (CLI) | payer OTHER, SELFPAY ==
[2024-05-25 10:16] LABS: Basophils % 0.7 % (0.1-2.0); Eosinophils # 0.2 K/mm3 (0.0-0.4); Eosinophils % 5.2 % (0.1-12.0); Hemoglobin 13.7 g/dL (12.2-16.2); Lymphocytes # 1.1 K/mm3 (0.7-4.5); Lymphocytes % 24.6 % (10-50); Mean Corpuscular HGB Conc 31.1 g/dL (31.8-35.4); Mean Corpuscular Hemoglobin 32.4 pg (27.0-31.2); Mean Platelet Volume 8.1 fl (7.4-10.4); Monocytes # 0.3 K/mm3 (0.1-1.0); Monocytes % 7.7 % (1.7-9.3); Neutrophils # 2.7 K/mm3 (1.8-7.8); Neutrophils % 61.8 % (37.0-80.0); Platelet Count 290 K/mm3 (142-424); Red Blood Count 4.23 M/mm3 (4.20-5.40); Red Cell Distribution Width 12.7 % (11.5-17.5); White Blood Count 4.4 K/mm3 (4.8-10.8)
[2024-05-25 10:24] LABS: INR 1.02 (0.9-1.1); Prothrombin Time 11.4 seconds (10.1-12.5)
[2024-05-25 10:59] LABS: Albumin Level 4.1 g/dl (3.5-5.0); Chloride 109 mmol/L (98-107); Potassium 4.1 mmoL/L (3.5-5.1); Sodium 139 mmol/L (136-145)
[2024-05-25 11:01] LABS: Blood Urea Nitrogen 9 mg/dl (7-17)
[2024-05-25 11:02] LABS: Alanine Aminotransferase 23 U/L (12-78); Albumin/Globulin Ratio 1.6 (1.1-1.8); Alkaline Phosphatase 57 U/L (38-126); Anion Gap 7.1 mEq/L (5-15); Aspartate Amino Transferase 21 U/L (14-36); Bilirubin,Total 1.2 mg/dl (0.2-1.3); Calcium 9.2 mg/dl (8.4-10.2); Carbon Dioxide 27 mmol/L (22.0-30.0); Estimated Glomerular Filt Rate 117 ml/min (>60); GFR (African American) 142 ML/MIN (>60); Globulin 2.6 g/dL (1.3-3.2); Glucose 79 mg/dl (74-100); Lipase 73 U/L (23-300); Total Protein,Serum 6.7 g/dl (6.3-8.2)
[2024-05-26 08:35] LABS: AFP, Tumor Marker 3.4 ng/mL (0.0-4.7)
== END 2024-05-25 23:59 | disposition home or self-care (01) ==
PROVIDERS: Physician Assistant; PCP Internal Medicine Adolescent Medicine; Visit Provider Internal Medicine Gastroenterology
DX: Z86.19 Personal history of other infectious and parasitic diseases (principal); B18.1 Chronic viral hepatitis B without delta-agent; M54.50 Low back pain, unspecified
CPT/HCPCS: 36415; 80053; 82105; 83690; 85025; 85610

== ENCOUNTER 2024-06-20 09:57 | Emergency (ER) | payer OTHER, SELFPAY ==
[2024-06-20 10:10] VITALS: BP 117/72; PULSE 83; RESP 18; TEMP 36.6; O2SAT 100; BMI 26.6
[2024-06-20] MEDS: DEXAMETHASONE 4MG/ML 1ML VIAL 4 MG IM (10:50)
[2024-06-20] MEDS: KETOROLAC 60MG/2ML VIAL 60 MG IM (10:50)
--- NOTE | 2024-06-20 10:54 | ED_ITS ---
Discharge Plan Disposition Patient Disposition: Home, Self-Care Condition: Good Prescriptions Prescriptions: No Action tenofovir disoproxil fumarate 300 MG tablet 300 mg PO DAILY MDD 300 Referrals Follow up/Referrals: Jw Askew MD [Primary Care Provider] - See instructions Activity Restrictions/Add. Instructions Additional Instructions/Restrictions: DO NOT take Ibuprofen for the next 24 hours. Use heat/ice as needed for additional pain relief. Follow up next week with primary care provider. Clinical Impressions Clinical Impression: Low back pain Qualifiers: Chronicity: acute Back pain laterality: midline Sciatica presence: with sciatica Sciatica laterality: bilateral sciatica Qualified Code(s): M54.42 - Lumbago with sciatica, left side Instructions Patient Instructions: Exercise May Reduce Risk of Low Back Pain, DI for Low Back Pain, Managing Chronic Low Back Pain, Activity May Be Better Than Rest for Low Back Pain Recovery Print Language Print Language: Khmer Discharge ED Provider: Saundra Reese [facility] General Stated complaint: back pain Mode of Arrival: Ambulatory Source of Information: Patient Time Seen by Provider: 06/20/24 10:30 Description of Symptoms (Recalled from Triage Doc. by RN): GEN LOWER BACK, HIP AND TAILBONE PAIN, WITH SHARP INTERMITTENT PAINS GOING DOWN LEGS. STATES SHE HAS HAD IT XRAY MULT. TIMES AND IS WAITING FOR AN MRI TO BE SCHEDULED. PAIN HAS BEEN AN ISSUE X6 MONTHS WOKE UP TO SEVERE PAIN TODAY, CAN NOT FULLY EXTEND LEGS HEENT Symptoms (Recalled from RN notes): No Resp Symptoms (Recalled from RN notes): No Skin Symptoms (Recalled from RN notes): No MS Symptoms (Recalled from RN notes): Yes Functional Status (Recalled from RN notes): UNABLE TO PUT PRESSURE ON LEGS, IMPAIRED MOBILTIY History of Present Illness Provider Complaint: GEN LOWER BACK, HIP AND TAILBONE PAIN, WITH SHARP INTERMITTENT PAINS GOING DOWN LEGS. STATES SHE HAS HAD IT XRAY MULT. TIMES AND IS WAITING FOR AN MRI TO BE SCHEDULED. PAIN HAS HAD AN ISSUE X6 MONTHS. SHE TAKES IBUPROFEN 800MG 3 TIMES A DAY. SHE REPORTS THAT LIDOCAINE PATCHES HAVE NOT HELPED. SHE RELATES THAT SHE HAS HAD A LAPSE IN HER INSURANCE AND HAS NOT BEEN ABLE TO CONTINUE PT OR DO HER MRI. WOKE UP TO SEVERE PAIN TODAY, CAN NOT FULLY EXTEND LEGS Related Data Home Medications ?Medication ?Instructions ?Recorded ?Confirmed tenofovir disoproxil fumarate 300 300 mg PO DAILY na 05/17/21 10/12/24 mg tablet Allergies Allergy/AdvReac Type Severity Reaction Status Date / Time No Known Allergies Allergy Verified 12/05/22 13:54 Worker's Comp Is this a Worker's Comp case?: No PFSH PFS Disclaimer: The information contained in this section may have been updated after the patient was seen, as this information can be updated by other users. 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 current occupational status: unemployed Travel in the last 8 weeks: None household members: significant other housing: house caffeine: Yes ROS Obtained: Yes All systems reviewed & no additional complaints except as documented Constitutional Constitutional: Reports system reviewed and no additional complaints, except as documented Eyes Eyes: Reports system reviewed and no additional complaints, except as documented ENT Ears, Nose, Mouth, and Throat: Reports system reviewed and no additional complaints, except as documented Cardiovascular Cardiovascular: Reports system reviewed and no additional complaints, except as documented Respiratory Respiratory: Reports system reviewed and no additional complaints, except as documented Gastrointestinal Gastrointestingal: Reports system reviewed and no additional complaints, except as documented Genitourinary Female Genitourinary: Reports system reviewed and no additional complaints, except as documented Musculoskeletal Musculoskeletal: Reports system reviewed and no additional complaints, except as documented, Reports back pain and Reports limited range of motion Integumentary/Breasts Skin/Breast: Reports system reviewed and no additional complaints, except as documented Neurologic Neurologic: Reports system reviewed and no additional complaints, except as documented Endocrine Endocrine: Reports system reviewed and no additional complaints, except as documented Hematologic/Lymphatic Henatologic/Lymphatic: Reports system reviewed and no additional complaints, except as documented Allergic/Immunologic Allergic/Immunologic: Reports system reviewed and no additional complaints, except as documented Physical Exam General General appearance: alert Comment: appears to be in pain Head Head exam: atraumatic and normocephalic Eye Eye exam: Present normal appearance ENT ENT exam: Present normal exam and normal oropharynx Neck Neck exam: Present normal inspection and full ROM Chest Chest inspection: Present normal inspection and symmetric chest wall rise Respiratory Respiratory exam: Present normal lung sounds bilaterally Cardiovascular Cardiovascular exam: Present regular rate and normal rhythm Abdominal Exam Abdominal exam: Present soft Back Exam Back exam: Present tenderness, paraspinal tenderness, vertebral tenderness (L4- 5), sciatic notch tenderness (R) and sciatic notch tenderness (L) Neurological Exam Neurological exam: Present alert and oriented X3 Psychiatric Psychiatric exam: Present normal affect and normal mood Skin Skin exam: Present warm, dry and intact Lymphatic Lymphatic Findings: no adenopathy Medical Decision Making Medical Records Screening: Per USPSTF and CDC recommendations, given the prevalence of disease in our region, it is our hospital?s policy to screen for HIV and viral Hepatitis for al l patients aged 18 and over and those with ongoing risk factors. Brian Inquiry Pt receiving controlled substance: No Brian was queried for this patient: No Vital Signs: 06/20/24 10:10 Temperature 97.9 F Temperature Source Oral Pulse Rate [Left Radial] 83 Respiratory Rate 18 Blood Pressure [Left Arm] 117/72 Blood Pressure Mean [Left Arm] 87 02 Sat by Pulse Oximetry 100 Orders (Tests/Meds): ED MEDICATIONS Generic Name Dose Route Start Last Admin Trade Name Freq PRN Reason Stop Dose Admin Dexamethasone Sodium Phosphate 4 mg 06/20/24 10:47 06/20/24 10:50 Dexamethasone 4mg/Ml 1ml Vial IM 06/20/24 10:48 4 mg ONCE ONE Administration Ketorolac Tromethamine 60 mg 06/20/24 10:47 06/20/24 10:50 Ketorolac 60mg/2ml Vial IM 06/20/24 10:48 60 mg ONCE ONE Administration
[2024-06-20 11:05] VITALS: BP 117/72; PULSE 83; RESP 18; TEMP 36.6
== END 2024-06-20 11:07 | disposition home or self-care (01) ==
PROVIDERS: Emergency Provider Nurse Practitioner Family; PCP Internal Medicine Adolescent Medicine
DX: M54.42 Lumbago with sciatica, left side (principal)
CPT/HCPCS: 99213; G0381; J1100; J1885

== ENCOUNTER 2024-09-04 11:02 | Emergency (ER) | payer SELFPAY ==
[2024-09-04 11:53] VITALS: BP 0/0; PULSE 0; RESP 0; TEMP -17.7; TEMP 0
== END 2024-09-04 11:54 | disposition left against medical advice (07) ==
LOC: UTC 11:06
PROVIDERS: Emergency Provider Nurse Practitioner; PCP Internal Medicine Adolescent Medicine
DX: Z53.21 Procedure and treatment not carried out due to patient leaving prior to being seen by health care provider (principal)

== ENCOUNTER 2024-09-24 17:34 | Emergency (ER) | payer SELFPAY ==
[2024-09-24 17:55] VITALS: BP 127/82; PULSE 78; RESP 18; TEMP 36.6; O2SAT 100; BMI 27.1
--- NOTE | 2024-09-24 18:05 | EXP.UTC ---
Discharge Plan Disposition Patient Disposition: Home, Self-Care Condition: Good Prescriptions Prescriptions: New amoxicillin 875 mg tablet 875 mg PO Q12H Qty: 20 0RF methylprednisolone 4 mg Tablets,Dose Pack 4 mg PO DIRECTED 6 Days Qty: 21 0RF Rx Instructions: Take 1 pack as directed for 6 days mywunnnzzbuwxjr-[id number] [Bromfed DM] 2-30-10 mg/5 mL Syrup 5 ml PO Q6H PRN (Reason: Cough) Qty: 240 0RF No Action Caplyta 10.5 mg capsule 20 mg PO DAILY Patient Comments: TAKE 1 CAPSULE BY MOUTH ONCE DAILY DIRECTED FOR 30 DAYS FOR MOOD tenofovir disoproxil fumarate 300 MG tablet 300 mg PO DAILY MDD 300 Referrals Follow up/Referrals: Jw Askew MD [Primary Care Provider] - See instructions Activity Restrictions/Add. Instructions Additional Instructions/Restrictions: Drink plenty of fluids. Take tylenol or ibuprofen for pain or fever. Take the medications as directed. Follow up with your regular doctor. GO TO THE ER FOR ANY WORSENING SYMPTOMS Don't start the oral steroids (medrol dose pack) until tomorrow since you had the shot here Clinical Impressions Clinical Impression: Otitis media, Contact dermatitis Stand Alone Forms Stand Alone Forms: Work/School Release Instructions Patient Instructions: Methylprednisolone, Amoxicillin, Dexamethasone Injection Print Language Print Language: Uzbek Discharge ED Provider: Armen Cast [facility] General Stated complaint: ear ache, rash Mode of Arrival: Ambulatory Source of Information: Patient Time Seen by Provider: 09/24/24 18:05 Description of Symptoms (Recalled from Triage Doc. by RN): right ear pain, rash HEENT Symptoms (Recalled from RN notes): Yes Resp Symptoms (Recalled from RN notes): No Skin Symptoms (Recalled from RN notes): No MS Symptoms (Recalled from RN notes): No Functional Status (Recalled from RN notes): wnl History of Present Illness Provider Complaint: She states that for the past 2 days she has had worsening sore throat, sinus congestion, and bilateral ear pain. Last night she began having a rash on her face, upper chest and upper back. Related Data Home Medications ?Medication ?Instructions ?Recorded ?Confirmed tenofovir disoproxil fumarate 300 300 mg PO DAILY na 01/23/21 09/24/24 mg tablet lumateperone 10.5 mg capsule 20 mg PO DAILY 09/24/24 09/24/24 (Caplyta) Previous Rx's ?Medication ?Instructions ?Recorded amoxicillin 875 mg tablet 875 mg PO Q12H #20 tabs 09/24/24 [id number]-[id number]-[id number] 5 ml PO Q6H PRN Cough #240 mL 09/24/24 2 mg-30 mg-10 mg/5 mL oral syrup (Bromfed DM) methylprednisolone 4 mg tablets in 4 mg PO DIRECTED 6 days #21 tabs 09/24/24 a dose pack Allergies Allergy/AdvReac Type Severity Reaction Status Date / Time No Known Allergies Allergy Verified 12/05/22 13:54 Worker's Comp Is this a Worker's Comp case?: No [facility] Disclaimer: The information contained in this section may have been updated after the patient was seen, as this information can be updated by other users. 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 current occupational status: unemployed Travel in the last 8 weeks: None household members: significant other housing: house caffeine: Yes Have you lived/traveled outside [place] in past 30 days?: No Contact w/someone who lives/traveled outside [place] past 30 days?: No Exposure to someone with infectious disease in past 14 days?: No Do you have a fever (greater than 100.4 F or 38 C)?: No Have you tested positive for COVID-19: No Exposed to someone with COVID-19 in past 14 days?: No Do you have a sore throat?: No Do you have a cough?: No Do you have any weakness?: No Do you have any diarrhea?: No Are you experiencing any unusual bleeding?: No Do you have any muscle aches/pain?: No Do you have any abdominal pain?: No Are you experiencing loss of taste or smell?: No ROS Obtained: Yes All systems reviewed & no additional complaints except as documented Constitutional Constitutional: Denies chills, Reports fever(s) and Reports poor appetite Eyes Eyes: Denies eye discharge ENT Ears, Nose, Mouth, and Throat: Denies ear discharge, Reports otalgia, Denies hearing loss, Denies sinus pain and Reports sore throat Cardiovascular Cardiovascular: Denies chest pain and Denies dyspnea Respiratory Respiratory: Denies chest congestion, Reports cough and Denies dyspnea Gastrointestinal Gastrointestingal: Denies abdominal pain, diarrhea, nausea or vomiting Musculoskeletal Musculoskeletal: Denies arthralgias Integumentary/Breasts Skin/Breast: Denies rash Physical Exam General General appearance: alert and in no apparent distress Head Head exam: atraumatic, normocephalic and normal inspection Eye Eye exam: Present normal appearance; Absent PERRL or EOMI ENT ENT exam: Present mucous membranes moist and normal external ear exam Expanded ENT Exam TM/Canal exam: Bilateral TM: erythema, bulging and effusion Nose exam: Absent sinus tenderness Nasal speculum exam: Bilateral: normal Mouth exam: Present normal external inspection and other; Absent drooling Teeth exam: Present normal inspection Throat exam: Present tonsillar erythema and tonsillomegaly Neck Neck exam: Present normal inspection, full ROM and trachea midline; Absent tenderness, meningismus or lymphadenopathy Chest Chest inspection: Present normal inspection and symmetric chest wall rise; Absent tenderness Respiratory Respiratory exam: Present normal lung sounds bilaterally; Absent respiratory distress, wheezes or stridor Cardiovascular Cardiovascular exam: Present regular rate, normal rhythm and normal heart sounds; Absent tachycardia or irregular rhythm Abdominal Exam Abdominal exam: Present soft and normal bowel sounds; Absent distention, tenderness, guarding, rebound or rigidity Extremities Exam Extremities exam: Present normal inspection and normal capillary refill; Absent tenderness, joint swelling or calf tenderness Back Exam Back exam: Present normal inspection and full ROM; Absent tenderness, CVA tenderness (R) or CVA tenderness (L) Neurological Exam Neurological exam: Present alert, oriented X3, CN II-XII intact, normal gait and reflexes normal; Absent motor sensory deficit Psychiatric Psychiatric exam: Present normal affect and normal mood Skin Skin exam: Present warm, dry, intact and normal color Lymphatic Lymphatic Findings: no adenopathy Medical Decision Making Medical Records Medical records reviewed: No I reviewed the patient's medical records. Screening: Per USPSTF and CDC recommendations, given the prevalence of disease in our region, it is our hospital?s policy to screen for HIV and viral Hepatitis for all patients aged 18 and over and those with ongoing risk factors. Brian Inquiry Pt receiving controlled substance: No Vital Signs: 09/24/24 17:55 Temperature 97.9 F Temperature Source Oral Pulse Rate [Left Radial] 78 Respiratory Rate 18 Blood Pressure [Left Arm] 127/82 Blood Pressure Mean [Left Arm] 97 02 Sat by Pulse Oximetry 100 Lab Data Lab results reviewed: Yes I reviewed the patient's lab results. Orders (Tests/Meds): ED MEDICATIONS Generic Name Dose Route Start Last Admin Trade Name Freq PRN Reason Stop Dose Admin Dexamethasone Sodium Phosphate 8 mg 09/24/24 18:03 Dexamethasone 4mg/Ml 1ml Vial IM 09/24/24 18:04 ONCE ONE
[2024-09-24] MEDS: DEXAMETHASONE 4MG/ML 1ML VIAL 8 MG IM (18:07)
[2024-09-24 18:17] VITALS: BP 127/82; PULSE 78; RESP 18; TEMP 36.6
== END 2024-09-24 18:21 | disposition home or self-care (01) ==
PROVIDERS: Emergency Provider Nurse Practitioner Family; PCP Internal Medicine Adolescent Medicine
DX: H66.93 Otitis media, unspecified, bilateral (principal); L25.9 Unspecified contact dermatitis, unspecified cause
CPT/HCPCS: 96372; 99213; G0381; J1100

== ENCOUNTER 2025-05-10 11:28 | Outpatient (CLI) | payer OTHER, SELFPAY ==
--- OUTSIDE RECORDS SUMMARY | 2025-03-15 09:00 | XMS_ITS | Encounter Summary ---
Author Organization [employer] ([place], [place], [place], [place]) Address [address] [place] [address] Care Team Providers Care Insight Director Name Role Phone Jw Askew MD Primary Care Provider + [phone] Darcy Jamison PA-C Unavailable [phone] Reason for Referral * Ultrasound (Routine) - Closed Specialty Diagnoses / Procedures Referred By Valdez turner Referred To Contact Radiology Diagnoses Chronic viral hepatitis B without delta agent and without coma (HCC) Procedures Ultrasound liver Darcy Jamison PA-C [address] [place] [address] Phone: tel: fax: [facility] Ultrasound [address] [place] [address] Phone: tel: fax: Referral ID Status Reason Start Date Expiration Date Visits Re quested Visits Authorized [id number] Closed 02/17/2025 02/17/2026 1 1 Reason for Visit * Ultrasound (Routine) - Closed Specialty Diagnoses / Procedures Referred By Valdez turner Referred To Contact Radiology Diagnoses Chronic viral hepatitis B without delta agent and without coma (HCC) Procedures Ultrasound liver Darcy Jamison PA-C [address] [place] [address] Phone: tel: fax: [facility] Ultrasound [address] [place] [address] Phone: tel: fax: Referral ID Status Reason Start Date Expiration Date Visits Re quested Visits Authorized [id number] Closed 02/17/2025 02/17/2026 1 1 Encounter Details Date Type Department Care Team (Late st Contact Info) Description 03/15/2025 9:00 AM EDT - 03/15/2025 11:59 PM EDT Hospital Encounter [facility] Ultrasound [address] [place] [address] Darcy Jamison PA-C [address] [facility] [address] [place] [address] Chronic viral hepatitis B without delta agent and without coma (HCC) Discharge Disposition: Home or Self Care Social History Tobacco Use Types Packs/Day Years Used Date Smoking Tobacco: Never Smokeless Tobacco: Never Alcohol Use Standard Drinks/Week Comments Not Currently 0 (1 standard drink = 0.6 oz pur e alcohol) Employment Answer Date Recorded Help finding and keeping a job Not on file 0 09/19/2023 Family and Community Support Answer Ronan e Recorded Help with Day to Day Activities Not on file 09/19/2023 Feeling Lonely or Isolated Not on file 09/19 Educational Attainment Answer Date Gustavo rded Speak language other than Tuvaluan at home Not on file 09/19/2023 Want help with school or training Not on file 09/19/2023 Substance Use Answer Date Recorded Used prescription meds for non-medical reasons N ot on file 09/19/2023 Used illegal drugs past 12 months Not on file 09/19/2023 Comments Unknown Sex and Gender Information Value Date Recorded Sex Assigned at Not on file Legal Sex Female 7:01 PM CDT Gender Identity Not on file Sexual Orientation Not on file documented as of this encounter Medications at Time of Discharge tenofovir (VIREAD) 300 mg tabletIndications :Chronic viral hepatitis B without delta agent and without coma (HCC) Take 1 tablet (300 mg total) by mouth daily. 90 tablet 3 02/11/2025 05/11/2025 documented as of this encounter Miscellaneous Notes * Result Encounter Note - Darcy Jamison PA-C - 03/15/2025 9:00 AM EDT Ryan Lu - your liver US looks normal. documented in this encounter Plan of Treatment Upcoming Encounters Date Type Department Care Team (Late st Contact Info) Description 08/11/2025 2:45 PM EST Office Visit [facility] Gastroenterology [address] [place] [address] [address] [place] [phone] Kimebrley Fierro MD [address] [facility] [address] [place] [address] documented as of this encounter Procedures Procedure Name Priority Date/Time Associated Diagnosis Comments US LIVER Routine 03/15/2025 9:44 AM EDT Chronic viral hepatitis B without delta agent and without coma (HCC) documented in this encounter Results * Ultrasound liver (03/15/2025 9:44 AM EDT) Anatomical Region Laterality Modality Abdomen Ultrasound 03/15/2025 10:2 1 AM EDT Impressions 03/15/2025 10:24 AM EDT Status post cholecystectomy. Otherwise unremarkable . Images reviewed, interpreted, and dictated by Dr. Romi Sidhu. Transcribed by India Blood PA-C. Narrative 03/15/2025 10:24 AM EDT RIGHT UPPER QUADRANT ULTRASOUND HISTORY: Acute right upper quadrant pain, hepatitis C. PROCEDURE: Ultrasound images of the right upper quadrant were obtained. FINDINGS: Limited images of the pancreas are obscured by bowel gas. The liver parenchyma is normal in echogenicity. The gallbladder is surgically absent . The common duct is normal. Limited images of the right kidney are unremarkable. Procedure Note Uriel Sidhu MD - 03/15/2025 RIGHT UPPER QUADRANT ULTRASOUND HISTORY: Acute right upper quadrant pain, hepatitis C. PROCEDURE: Ultrasound images of the right upper quadrant were obtained. FINDINGS: Limited images of the pancreas are obscured by bowel gas. The liver parenchyma is normal in echogenicity. The gallbladder is surgically absent . The common duct is normal. Limited images of the right kidney are unremarkable. IMPRESSION: Status post cholecystectomy. Otherwise unremarkable . Images reviewed, interpreted, and dictated by Dr. Romi Sidhu. Transcribed by India Blood PA-C. us Darcy Jamison PA-C IMG US ORDERABLES Final Result documented in this encounter Visit Diagnoses Diagnosis Chronic viral hepatitis B without delta agent and without coma (HCC) documented in this encounter Care Teams Insight Director Relationship Specialty Start Date End Date Jw Askew MD [address] [place] [address] PCP - General Adolescent Medicine 09/05/22 Darcy Jamison PA-C [address] [facility] [place] [address] Gastroenterology 11/18/24 documented as of this encounter
[2025-05-10 20:51] LABS: Coronavirus 19, PCR Not Detected (NotDetected); Influenza A, PCR Not Detected (NotDetected); Influenza B, PCR Not Detected (NotDetected)
--- OUTSIDE RECORDS SUMMARY | 2025-05-11 11:07 | XMS_ITS | Encounter Summary ---
Author Organization [employer] ([place], [place], [place], [place]) Address [address] [place] [address] Care Team Providers Care State Farm Agent Name Role Phone Jw Askew MD Primary Care Provider + [phone] Darcy Jamison PA-C Unavailable [phone] Reason for Visit * Reason Comments Medication Refill Encounter Details Date Type Department Care Team (Late st Contact Info) Description 08/27/2022 Refill [facility] Gastroenterology [address] [place] [phone] Kimberley Fierro MD [address] [place] [phone] Chronic viral hepatitis B without delta agent and without coma (HCC) (Primary Dx) Social History Tobacco Use Types Packs/Day Years Used Date Smoking Tobacco: Never Assessed Comments Unknown Sex and Gender Information Value Date Recorded Sex Assigned at Not on file Legal Sex Female 7:01 PM CDT Gender Identity Not on file Sexual Orientation Not on file documented as of this encounter Plan of Treatment Upcoming Encounters Date Type Department Care Team (Late st Contact Info) Description 08/11/2025 2:45 PM EST Office Visit [facility] Gastroenterology [address] [place] [phone] Kimberley Fierro MD [address] [place] [address] documented as of this encounter Visit Diagnoses Diagnosis Chronic viral hepatitis B without delta agent and without coma (HCC)- Primary documented in this encounter Care Teams State Farm Agent Relationship Specialty Start Date End Date Jw Askew MD [address] [place] [address] PCP - General Adolescent Medicine 09/05/22 Darcy Jamison PA-C [address] [place] [address] Gastroenterology 11/18/24 documented as of this encounter
--- OUTSIDE RECORDS SUMMARY | 2025-05-11 11:07 | XMS_ITS | Encounter Summary ---
Author Organization [employer] ([place], [place], [place], [place]) Address [address] [place] [address] Care Team Providers Care Supervisor Compounding And Finishing Name Role Phone Jw Askew MD Primary Care Provider + [phone] Darcy Jamison PA-C Unavailable [phone] Encounter Details Date Type Department Care Team (Latest Contact Info) Description 03/15/2025 Travel Social History Tobacco Use Types Packs/Day Years [...] Date Gustavo rded Speak language other than Estonian at home Not on file 09/19/2023 Want [...] Description 08/11/2025 2:45 PM EST Office Visit [facility] Gastroenterology [address] [facility] [address] [place] [phone] Kimberley Fierro MD [address] [facility] [address] [place] [address] documented as of this encounter Visit Diagnoses Not on filedocumented in this encounter Care Teams Supervisor Compounding And Finishing Relationship Specialty Start Date End Date Jw Askew MD [address] [place] [address] PCP - General Adolescent Medicine 09/05/22 Darcy Jamison PA-C [address] [facility] [address] [place] [address] Gastroenterology 11/18/24 documented as of this encounter
--- OUTSIDE RECORDS SUMMARY | 2025-05-11 11:07 | XMS_ITS | Encounter Summary ---
Author Organization [employer] ([place], [place], [place], [place]) Address [address] [place] [address] Care Team Providers Care Technical Translator Name Role Phone Jw Askew MD Primary Care Provider [phone] Darcy Jamison PA-C Unavailable [phone] Encounter Details Date Type Department Care Team (Late st Contact Info) Description 12/22/2020 Transcribed Document [facility] Family Medicine [address] [place] [address] ProviderCandi MD [address], [place] [id number] Social History Tobacco Use Types Packs/Day Years Used Date Smoking Tobacco: Never Assessed Comments Unknown Sex and Gender Information Value Date Recorded Sex Assigned at Not on file Legal Sex Female 7:01 PM CDT Gender Identity Not on file Sexual Orientation Not on file documented as of this encounter Miscellaneous Notes * Cerner Conversion Note - Candi ProviderMD - 12/22/2020 3:15 PM CDT [facility] Endo IntraOp Summary Primary Physician: KIMBERLEY FIERRO MD-GAE Finalized Date/Time: 12/22/20 16:10:47 Pt. Name: LU INMAN JAYLON /Sex: 1995 Female Med Rec #: [id number] Physician: KIMBERLEY FIERRO MD-GAE Financial #: [id number] Pt. Type: O Room/Bed: END/ Admit/Disch: 12/22/20 13:07:00 - Institution: [facility] Endo - Case Attendance Entry 1 Entry 2 Entry 3 Case Attendee KIMBERLEY FIERRO MD-SILVANO WYMAN, MATTHEW KIRK NA Role Performed Surgeon/Proceduralist, Anesthesiologist of WOOD SCRAP HANDLER/Nurse Entrance Guard First Record Time In 12/22/20 15:13:00 12/22/20 14:39:00 12/22/20 14:39:00 Time Out 12/22/20 15:53:00 12/22/20 15:53:00 12/22/20 15:53:00 Procedure Endoretrogradecholangiop Endoretrogradecholangiop Endoretrogradecholangiop ancreatography, ancreatography, ancreatography, Sphincterotomy, Biliary Sphincterotomy, Biliary Sphincterotomy, Biliary Duct Balloon Sweep, Duct Balloon Sweep, Duct Balloon Sweep, Biliary Duct Stone Biliary Duct Stone Biliary Duct Stone Extraction, Pancreatic Extraction, Pancreatic Extraction, Pancreatic Duct Stent Placement Duct Stent Placement Duct Stent Placement Other Attendee Superficial Wound Closed By: Last Modified By: Danitza Briones, Danitza Byers, Danitza Byers Rn 12/22/20 15:46:29 12/22/20 15:46:29 12/22/20 15:46:29 Entry 4 Entry 5 Entry 6 Case Attendee Danitza Briones, MATTHEW Garcia RN FUGATE, NATHAN, SALES ENABLEMENT ANALYST Role Performed Pharmacy Retail Support Specialist, First Pharmacy Retail Support Specialist, Second Scrub, First Time In 12/22/20 14:39:00 12/22/20 14:39:00 12/22/20 14:39:00 Time Out 12/22/20 15:53:00 12/22/20 15:53:00 12/22/20 15:53:00 Procedure Endoretrogradecholangiop Endoretrogradecholangiop Endoretrogradecholangiop ancreatography, ancreatography, ancreatography, Sphincterotomy, Biliary Sphincterotomy, Biliary Sphincterotomy, Biliary Duct Balloon Sweep, Duct Balloon Sweep, Duct Balloon Sweep, Biliary Duct Stone Biliary Duct Stone Biliary Duct Stone Extraction, Pancreatic Extraction, Pancreatic Extraction, Pancreatic Duct Stent Placement Duct Stent Placement Duct Stent Placement Other Attendee Superficial Wound Closed By: Last Modified By: Anselmo, Dee Bosch Molly, Rn Mcclintock, Molly, Rn 12/22/20 15:46:29 12/22/20 15:46:29 12/22/20 15:46:29 [facility] Endo - Case Attendance Audit 12/22/20 15:46:29 Automation And Controls Manager: [id number] Modifier: [id number] 1 <*> Procedure Endoretrogradecholangiopancreatography, Sphincterotomy, Biliary Duct Balloon Sweep, Biliary Duct Stone Extraction 2 <*> Procedure Endoretrogradecholangiopancreatography, Sphincterotomy, Biliary Duct Balloon Sweep, Biliary Duct Stone Extraction 3 <*> Procedure Endoretrogradecholangiopancreatography, Sphincterotomy, Biliary Duct Balloon Sweep, Biliary Duct Stone Extraction 4 <*> Procedure Endoretrogradecholangiopancreatography, Sphincterotomy, Biliary Duct Balloon Sweep, Biliary Duct Stone Extraction 5 <*> Procedure Endoretrogradecholangiopancreatography, Sphincterotomy, Biliary Duct Balloon Sweep, Biliary Duct Stone Extraction 6 <*> Procedure Endoretrogradecholangiopancreatography, Sphincterotomy, Biliary Duct Balloon Sweep, Biliary Duct Stone Extraction 12/22/20 15:45:59 Automation And Controls Manager: [id number] Modifier: [id number] 1 <*> Procedure Endoretrogradecholangiopancreatography, Sphincterotomy, Biliary Duct Balloon Sweep, Biliary Duct Stone Extraction, Pancreatic Duct Stent Placement 2 <*> Procedure Endoretrogradecholangiopancreatography, Sphincterotomy, Biliary Duct Balloon Sweep, Biliary Duct Stone Extraction, Pancreatic Duct Stent Placement 3 <*> Procedure Endoretrogradecholangiopancreatography, Sphincterotomy, Biliary Duct Balloon Sweep, Biliary Duct Stone Extraction, Pancreatic Duct Stent Placement 4 <*> Procedure Endoretrogradecholangiopancreatography, Sphincterotomy, Biliary Duct Balloon Sweep, Biliary Duct Stone Extraction, Pancreatic Duct Stent Placement 5 <*> Procedure Endoretrogradecholangiopancreatography, Sphincterotomy, Biliary Duct Balloon Sweep, Biliary Duct Stone Extraction, Pancreatic Duct Stent Placement 6 <*> Procedure Endoretrogradecholangiopancreatography, Sphincterotomy, Biliary Duct Balloon Sweep, Biliary Duct Stone Extraction, Pancreatic Duct Stent Placement 12/22/20 15:45:24 Automation And Controls Manager: [id number] Modifier: [id number] <+> Time Out 1 <*> Procedure Endoretrogradecholangiopancreatography, Sphincterotomy, Biliary Duct Balloon Sweep, Biliary Duct Stone Extraction, Pancreatic Duct Stent Placement 2 <+> Time Out 2 <*> Procedure Endoretrogradecholangiopancreatography, Sphincterotomy, Biliary Duct Balloon Sweep, Biliary Duct Stone Extraction, Pancreatic Duct Stent Placement 3 <+> Time Out 3 <*> Procedure Endoretrogradecholangiopancreatography, Sphincterotomy, Biliary Duct Balloon Sweep, Biliary Duct Stone Extraction, Pancreatic Duct Stent Placement 4 <+> Time Out 4 <*> Procedure Endoretrogradecholangiopancreatography, Sphincterotomy, Biliary Duct Balloon Sweep, Biliary Duct Stone Extraction, Pancreatic Duct Stent Placement 5 <+> Time Out 5 <*> Procedure Endoretrogradecholangiopancreatography, Sphincterotomy, Biliary Duct Balloon Sweep, Biliary Duct Stone Extraction, Pancreatic Duct Stent Placement 6 <+> Time Out 6 <*> Procedure Endoretrogradecholangiopancreatography, Sphincterotomy, Biliary Duct Balloon Sweep, Biliary Duct Stone Extraction, Pancreatic Duct Stent Placement 12/22/20 15:42:27 Automation And Controls Manager: [id number] Modifier: [id number] 1 <*> Procedure Endoretrogradecholangiopancreatography, Sphincterotomy, Biliary Duct Balloon Sweep, Biliary Duct Stone Extraction 2 <*> Procedure Endoretrogradecholangiopancreatography, Sphincterotomy, Biliary Duct Balloon Sweep, Biliary Duct Stone Extraction 3 <*> Procedure Endoretrogradecholangiopancreatography, Sphincterotomy, Biliary Duct Balloon Sweep, Biliary Duct Stone Extraction 4 <*> Procedure Endoretrogradecholangiopancreatography, Sphincterotomy, Biliary Duct Balloon Sweep, Biliary Duct Stone Extraction 5 <*> Procedure Endoretrogradecholangiopancreatography, Sphincterotomy, Biliary Duct Balloon Sweep, Biliary Duct Stone Extraction 6 <*> Procedure Endoretrogradecholangiopancreatography, Sphincterotomy, Biliary Duct Balloon Sweep, Biliary Duct Stone Extraction 12/22/20 15:42:13 Automation And Controls Manager: [id number] Modifier: [id number] 1 <*> Procedure Endoretrogradecholangiopancreatography, Sphincterotomy, Biliary Duct Balloon Sweep, Biliary Duct Stone Extraction, Biliary Duct Stent Placement 2 <*> Procedure Endoretrogradecholangiopancreatography, Sphincterotomy, Biliary Duct Balloon Sweep, Biliary Duct Stone Extraction, Biliary Duct Stent Placement 3 <*> Procedure Endoretrogradecholangiopancreatography, Sphincterotomy, Biliary Duct Balloon Sweep, Biliary Duct Stone Extraction, Biliary Duct Stent Placement 4 <*> Procedure Endoretrogradecholangiopancreatography, Sphincterotomy, Biliary Duct Balloon Sweep, Biliary Duct Stone Extraction, Biliary Duct Stent Placement 5 <*> Procedure Endoretrogradecholangiopancreatography, Sphincterotomy, Biliary Duct Balloon Sweep, Biliary Duct Stone Extraction, Biliary Duct Stent Placement 6 <*> Procedure Endoretrogradecholangiopancreatography, Sphincterotomy, Biliary Duct Balloon Sweep, Biliary Duct Stone Extraction, Biliary Duct Stent Placement 12/22/20 15:40:51 Automation And Controls Manager: [id number] Modifier: [id number] 1 <*> Procedure Endoretrogradecholangiopancreatography, Sphincterotomy, Biliary Duct Balloon Sweep, Biliary Duct Stone Extraction 2 <*> Procedure Endoretrogradecholangiopancreatography, Sphincterotomy, Biliary Duct Balloon Sweep, Biliary Duct Stone Extraction 3 <*> Procedure Endoretrogradecholangiopancreatography, Sphincterotomy, Biliary Duct Balloon Sweep, Biliary Duct Stone Extraction 4 <*> Procedure Endoretrogradecholangiopancreatography, Sphincterotomy, Biliary Duct Balloon Sweep, Biliary Duct Stone Extraction 5 <*> Procedure Endoretrogradecholangiopancreatography, Sphincterotomy, Biliary Duct Balloon Sweep, Biliary Duct Stone Extraction 6 <*> Procedure Endoretrogradecholangiopancreatography, Sphincterotomy, Biliary Duct Balloon Sweep, Biliary Duct Stone Extraction 12/22/20 15:33:37 Automation And Controls Manager: [id number] Modifier: [id number] 1 <*> Procedure Endoretrogradecholangiopancreatography, Sphincterotomy, Biliary Duct Balloon Sweep 2 <*> Procedure Endoretrogradecholangiopancreatography, Sphincterotomy, Biliary Duct Balloon Sweep 3 <*> Procedure Endoretrogradecholangiopancreatography, Sphincterotomy, Biliary Duct Balloon Sweep 4 <*> Procedure Endoretrogradecholangiopancreatography, Sphincterotomy, Biliary Duct Balloon Sweep 5 <*> Procedure Endoretrogradecholangiopancreatography, Sphincterotomy, Biliary Duct Balloon Sweep 6 <*> Procedure Endoretrogradecholangiopancreatography, Sphincterotomy, Biliary Duct Balloon Sweep 12/22/20 15:27:25 Automation And Controls Manager: [id number] Modifier: [id number] 1 <*> Procedure Endoretrogradecholangiopancreatography, Sphincterotomy 2 <*> Procedure Endoretrogradecholangiopancreatography, Sphincterotomy 3 <*> Procedure Endoretrogradecholangiopancreatography, Sphincterotomy 4 <*> Procedure Endoretrogradecholangiopancreatography, Sphincterotomy 5 <*> Procedure Endoretrogradecholangiopancreatography, Sphincterotomy 6 <*> Procedure Endoretrogradecholangiopancreatography, Sphincterotomy 12/22/20 15:25:12 Automation And Controls Manager: [id number] Modifier: [id number] 1 <*> Procedure Endoretrogradecholangiopancreatography 2 <*> Procedure Endoretrogradecholangiopancreatography 3 <*> Procedure Endoretrogradecholangiopancreatography 4 <*> Procedure Endoretrogradecholangiopancreatography 5 <*> Procedure Endoretrogradecholangiopancreatography 6 <*> Procedure Endoretrogradecholangiopancreatography 12/22/20 15:13:36 Automation And Controls Manager: [id number] Modifier: [id number] 1 <+> Time In 1 <*> Procedure Endoretrogradecholangiopancreatography 2 <+> Time In 2 <*> Procedure Endoretrogradecholangiopancreatography 3 <+> Time In 3 <*> Procedure Endoretrogradecholangiopancreatography 4 <+> Time In 4 <*> Procedure Endoretrogradecholangiopancreatography 5 <+> Time In 5 <*> Procedure Endoretrogradecholangiopancreatography 6 <+> Time In 6 <*> Procedure Endoretrogradecholangiopancreatography 12/22/20 14:29:50 Automation And Controls Manager: [id number] Modifier: [id number] <+> 2 Case Attendee <+> 2 Role Performed <+> 2 Procedure <+> 3 Case Attendee <+> 3 Role Performed <+> 3 Procedure <+> 4 Case Attendee <+> 4 Role Performed <+> 4 Procedure <+> 5 Case Attendee <+> 5 Role Performed <+> 5 Procedure <+> 6 Case Attendee <+> 6 Role Performed <+> 6 Procedure [facility] Endo - Case times Entry 1 Patient In Room Time 12/22/20 14:39:00 Out Room Time 12/22/20 15:53:00 Anesthesia Start Time 12/22/20 14:39:00 Stop Time 12/22/20 15:53:00 Surgery / Procedure Times Start Time 12/22/20 15:15:00 Stop Time 12/22/20 15:43:00 Last Modified By: Danitza Briones Rn 12/22/20 15:44:19 [facility] Endo - Case times Audit 12/22/20 15:44:19 Automation And Controls Manager: [id number] Modifier: [id number] <+> 1 Out Room Time <+> 1 Stop Time <+> 1 Stop Time 12/22/20 15:15:59 Automation And Controls Manager: [id number] Modifier: [id number] <+> 1 Start Time [facility] Endo - Cautery Entry 1 ESU Identification Cautery Type Monopolar ESU ID Number Room 4 ID Type Hospital Number Cautery Settings Blend Setting Pulse Cut Slow 120 ESU Grounding Pad Ground Pad Type Adult Grounding Pad Site Left lower leg Grounding Pad KATHI, KRISTA, Applied By SALES ENABLEMENT ANALYST Grounding Pad Site Intact, Dry Skin Condition Before Cautery Grounding Pad Site Unchanged Skin Condition After Cautery Last Modified By: Danitza Briones Rn 12/22/20 15:27:04 [facility] Endo - Delays Entry 1 Delay Reason Other, No Delay Duration 0 Minute(s) Comment No Delay Last Modified By: Danitza Briones Rn 12/22/20 14:30:08 [facility] Endo - Departure from OR Entry 1 Integumentary Assessment Integumentary WDL Assessment WDL Transfer/Handoff Transfer to PACU Phase I Handoff Method Bedside/Face to face Post-op Transport Stretcher/Gurney Via Patient Transport Danitza Briones Rn, Accompanied by MATTHEW EATON NA Last Modified By: Danitza Briones Rn 12/22/20 14:30:14 [facility] Endo - Endoscopy Details Entry 1 Abdomen Procedure Soft, Non-Tender Assessment Procedure Abdomen 12/22/20 14:49:00 Assessment D/T Radio Frequency Ablation Abdominal Pressure Last Modified By: Danitza Briones Rn 12/22/20 14:49:57 [facility] Endo - Fire Risk Assessment Entry 1 Fire Info Surgical Site or 1- Yes Incision Above the Xyphoid Open O2 Source 1- Yes (Mask or Cannula) Available Ignition 1- Yes (ESU, Laser, Light Source) Fire Risk 3 Assessment Score Fire Score Fire Risk Yes Assessment Complete Fire Risk Danitza Briones Rn Assessment Verified By Fire Risk 12/22/20 14:50:00 Assessment Verified Date/Time Fire Risk High Risk Protocol Yes Implemented Standard Fire Yes Safety Precautions Followed Last Modified By: Danitza Briones Rn 12/22/20 14:50:01 [facility] Endo - General Case Bolt Header 1 Case Information OR Endo 04 [facility] Case Level 1 Room Verified Yes Wound Class II - Clean-Contaminated Specialty Gastroenterology Anesthesia Type General ASA Class 3 Diagnosis Preop Diagnosis Bile duct stone Postop Same As Preop Yes Postop Diagnosis Bile duct stone Last Modified By: Danitza Briones Rn 12/22/20 14:51:13 [facility] Endo - General Case Data Audit 12/22/20 14:51:13 Automation And Controls Manager: [id number] Modifier: [id number] <+> 1 ASA Class <+> 1 Postop Same As Preop <+> 1 Preop Diagnosis <+> 1 Postop Diagnosis [facility] Endo - Implant Log Entry 1 Implant Log Implant STENT PANC SGL ST Identification [id number] Description Implant Quantity 1 Implant [id number] Identification Lot Number Implant [facility]:Endo Identification Pharmacy Innovation Assistant Name: Implant [id number] Identification Catalog Number Tissue Implant Last Modified By: Bre Ferrara Rn 12/22/20 16:10:27 [facility] Endo - Intraoperative Assessment Entry 1 Valid History / Yes Physical in Chart Preoperative Yes Checklist Reviewed/Evaluated Patient is Latex No Sensitive Level of WDL Consciousness (WDL = Alert, Oriented to Person, Place, and Time) Last Modified By: Danitza Briones Rn 12/22/20 14:30:34 [facility] Endo - Intraoperative Equipment Entry 1 Equipment Intraop Monitoring Electrocardiogram Three lead placement (ECG) Electrode Placement Blood Pressure Arm, left upper Location Pulse Oximeter Hand, right Probe Site Antiembolic Devices Scopes Flexible Endoscopes ERCP Scope Used Scope Serial E1 Number/Identificatio n Number Photo/Video Documentation Photo Yes Video No Last Modified By: Danitza Briones Rn 12/22/20 14:31:01 [facility] Endo - Patient Positioning Entry 1 Procedure Endoretrogradecholangiop ancreatography, Sphincterotomy, Biliary Duct Balloon Sweep, Biliary Duct Stone Extraction, Pancreatic Duct Stent Placement Body Position Prone Left Arm Position Tucked and padded at side Right Arm Position Tucked and padded at side Left Leg Position Uncrossed, parallel Right Leg Position Uncrossed, parallel Feet Uncrossed Yes Pressure Points Yes Checked Positioning Devices Roll (Other) Positioned By Danitza Briones Rn Position Verified Positioning Yes Verified by Surgeon Last Modified By: Danitza Briones Rn 12/22/20 15:46:31 [facility] Endo - Patient Positioning Audit 12/22/20 15:46:31 Automation And Controls Manager: [id number] Modifier: [id number] 1 <*> Procedure Endoretrogradecholangiopancreatography, Sphincterotomy, Biliary Duct Balloon Sweep, Biliary Duct Stone Extraction 12/22/20 15:46:00 Automation And Controls Manager: [id number] Modifier: [id number] 1 <*> Procedure Endoretrogradecholangiopancreatography, Sphincterotomy, Biliary Duct Balloon Sweep, Biliary Duct Stone Extraction, Pancreatic Duct Stent Placement 12/22/20 15:42:28 Automation And Controls Manager: [id number] Modifier: [id number] 1 <*> Procedure Endoretrogradecholangiopancreatography, Sphincterotomy, Biliary Duct Balloon Sweep, Biliary Duct Stone Extraction 12/22/20 15:42:14 Automation And Controls Manager: [id number] Modifier: [id number] 1 <*> Procedure Endoretrogradecholangiopancreatography, Sphincterotomy, Biliary Duct Balloon Sweep, Biliary Duct Stone Extraction, Biliary Duct Stent Placement 12/22/20 15:40:51 Automation And Controls Manager: [id number] Modifier: [id number] 1 <*> Procedure Endoretrogradecholangiopancreatography, Sphincterotomy, Biliary Duct Balloon Sweep, Biliary Duct Stone Extraction 12/22/20 15:33:37 Automation And Controls Manager: [id number] Modifier: [id number] 1 <*> Procedure Endoretrogradecholangiopancreatography, Sphincterotomy, Biliary Duct Balloon Sweep 12/22/20 15:27:25 Automation And Controls Manager: [id number] Modifier: [id number] 1 <*> Procedure Endoretrogradecholangiopancreatography, Sphincterotomy 12/22/20 15:25:13 Automation And Controls Manager: [id number] Modifier: [id number] 1 <*> Procedure Endoretrogradecholangiopancreatography [facility] Endo - Sign In Entry 1 Patient, Site, Yes Procedure Identified Surgical Consent Yes Confirmed Surgical Site N/A Marked by person performing procedure Airway Hypothermia Risk No Warming Measures No Taken Last Modified By: Danitza Briones Rn 12/22/20 14:31:13 [facility] Endo - Sign Out Entry 1 RN Confirmation Surgical Yes Procedure(s) Identified Instrument, Sponge N/A and Sharps Counts Correct/Documented Equipment Problems N/A Documented Specimen Labeled N/A Correctly Urinary Catheter N/A Documented in IView Safety Checklist Yes Elements Complete? RN Sign Out Danitza Briones Rn Signature RN Sign Out 12/22/20 15:53:00 Signature Date/Time Plan of Care Outcome - Fire Risk OUTCOME STATEMENT: Goal met Patient is free from injury related to surgical fire Plan of Care Outcome - Pt Positioning OUTCOME STATEMENT: Goal met Absence of signs and symptoms of positioning injury. Plan of Care Outcome - Skin Prep OUTCOME STATEMENT: Goal met Intraoperative care is consistent with measures to prevent infection Plan of Care Outcome - Xray/Images OUTCOME STATEMENT: Goal met Absence of observable signs or symptoms of radiation injury Plan of Care Outcome - Counts OUTCOME STATEMENT: N/A Absence of signs and symptoms of injury related to extraneous objects Last Modified By: Danitza Briones Rn 12/22/20 15:45:23 [facility] Endo - Surgical Procedures Entry 1 Entry 2 Entry 3 Procedure Endoretrogradecholangiop Sphincterotomy Biliary Duct Balloon ancreatography Sweep Modifiers Additional Procedure Description Primary Procedure Yes No No Primary Surgeon KIMBERLEY FIERRO MD-GAE MARTIN, KATHLEEN, MD-GAE MARTIN, KATHLEEN, MD-GAE Start 12/22/20 15:15:00 12/22/20 15:15:00 12/22/20 15:15:00 Stop 12/22/20 15:43:00 12/22/20 15:43:00 12/22/20 15:43:00 Physician States Cecum Reached Anesthesia Type MAC MAC MAC Specialty Gastroenterology Gastroenterology Gastroenterology Wound Class II - Clean-Contaminated II - Clean-Contaminated II - Clean-Contaminated Last Modified By: Danitza Briones, Danitza Byers, Danitza Byers Rn 12/22/20 15:45:28 12/22/20 15:45:28 12/22/20 15:45:28 Entry 4 Entry 5 Procedure Biliary Duct Stone Pancreatic Duct Stent Extraction Placement Modifiers Additional Procedure Description Primary Procedure No No Primary Surgeon KIMBERLEY FIERRO MD-GAE MARTIN, KATHLEEN, MD-GAE Start 12/22/20 15:15:00 12/22/20 15:15:00 Stop 12/22/20 15:43:00 12/22/20 15:43:00 Physician States Cecum Reached Anesthesia Type MAC MAC Specialty Gastroenterology Gastroenterology Wound Class II - Clean-Contaminated II - Clean-Contaminated Last Modified By: Danitza Briones, Rn Danitza Briones Rn 12/22/20 15:45:28 12/22/20 15:46:24 [facility] Endo - Surgical Procedures Audit 12/22/20 15:46:24 Automation And Controls Manager: [id number] Modifier: [id number] <*> Procedure Pancreatic Duct Stent Placement 5 <+> Primary Surgeon 5 <+> Specialty 5 <+> Wound Class 5 <+> Anesthesia Type 12/22/20 15:45:28 Automation And Controls Manager: [id number] Modifier: [id number] <+> 1 Stop <+> 2 Stop <+> 3 Stop <+> 4 Stop <+> 5 Start <+> 5 Stop 12/22/20 15:42:21 Automation And Controls Manager: [id number] Modifier: [id number] 1 <*> Procedure Endoretrogradecholangiopancreatography 1 <*> Primary Procedure Yes 1 <*> Primary Surgeon KIMBERLEY FIERRO MD-GAE 1 <*> Specialty 1 <*> Start 12/22/20 15:15:00 1 <*> Wound Class II - Clean-Contaminated 1 <*> Anesthesia Type MAC 2 <*> Procedure Sphincterotomy 2 <*> Primary Procedure No 2 <*> Primary Surgeon KIMBERLEY FIERRO MD-GAE 2 <*> Specialty 2 <*> Start 12/22/20 15:15:00 2 <*> Wound Class II - Clean-Contaminated 2 <*> Anesthesia Type MAC 3 <*> Procedure Biliary Duct Balloon Sweep 3 <*> Primary Procedure No 3 <*> Primary Surgeon KIMBERLEY FIERRO MD-GAE 3 <*> Specialty 3 <*> Start 12/22/20 15:15:00 3 <*> Wound Class II - Clean-Contaminated 3 <*> Anesthesia Type MAC 4 <*> Procedure Biliary Duct Stone Extraction 4 <*> Primary Procedure No 4 <*> Primary Surgeon KIMBERLEY FIERRO MD-GAE 4 <*> Specialty 4 <*> Start 12/22/20 15:15:00 4 <*> Wound Class II - Clean-Contaminated 4 <*> Anesthesia Type MAC Entry 5 was deleted. Higher numbered entries shifted one position to fill the gap. <-> 5 Procedure Biliary Duct Stent Placement <-> 5 Primary Procedure No <-> 5 Primary Surgeon KIMBERLEY FIERRO MD-GAE <-> 5 Specialty <-> 5 Start 12/22/20 15:15:00 <-> 5 Wound Class II - Clean-Contaminated <-> 5 Anesthesia Type MAC 12/22/20 15:40:49 Automation And Controls Manager: [id number] Modifier: [id number] <+> 5 Procedure <+> 5 Primary Procedure <+> 5 Primary Surgeon <+> 5 Specialty <+> 5 Start <+> 5 Wound Class <+> 5 Anesthesia Type 12/22/20 15:33:35 Automation And Controls Manager: [id number] Modifier: [id number] <+> 4 Procedure <+> 4 Primary Procedure <+> 4 Primary Surgeon <+> 4 Specialty <+> 4 Start <+> 4 Wound Class <+> 4 Anesthesia Type 12/22/20 15:27:23 Automation And Controls Manager: [id number] Modifier: [id number] <+> 3 Procedure <+> 3 Primary Procedure <+> 3 Primary Surgeon <+> 3 Specialty <+> 3 Start <+> 3 Wound Class <+> 3 Anesthesia Type 12/22/20 15:25:11 Automation And Controls Manager: [id number] Modifier: [id number] <+> 1 Start <+> 2 Procedure <+> 2 Primary Procedure <+> 2 Primary Surgeon <+> 2 Specialty <+> 2 Start <+> 2 Wound Class <+> 2 Anesthesia Type [facility] Endo - Time Out Entry 1 Procedure to be Endoretrogradecholangiop Performed ancreatography, Sphincterotomy, Biliary Duct Balloon Sweep, Biliary Duct Stone Extraction, Pancreatic Duct Stent Placement Time Out Time Out Pause Time 12/22/20 15:13:00 All activity Yes suspended (unless life threatening emergency) Team Verbally Correct patient Confirms Information identity, Consent form is present and accurate, Agreement on the procedure to be done, Correct patient position, Relevant images/results properly labeled/appropriately displayed, Reconcile problems if responses among team members differ Antibiotic N/A Prophylaxis Administered Or In Progress Within the Last 60 Minutes Beta Milton N/A Administered Venous N/A Thromboembolism Prophylaxis Required Anticipated Critical Events Surgeon None expected Last Modified By: Danitza Briones Rn 12/22/20 15:46:31 [facility] Endo - Time Out Audit 12/22/20 15:46:31 Automation And Controls Manager: [id number] Modifier: [id number] <*> Procedure to be Performed Endoretrogradecholangiopancreatography, Sphincterotomy, Biliary Duct Balloon Sweep, Biliary Duct Stone Extraction 12/22/20 15:46:00 Automation And Controls Manager: [id number] Modifier: [id number] 1 <*> Procedure to be Performed Endoretrogradecholangiopancreatography, Sphincterotomy, Biliary Duct Balloon Sweep, Biliary Duct Stone Extraction, Pancreatic Duct Stent Placement 12/22/20 15:42:29 Automation And Controls Manager: [id number] Modifier: [id number] 1 <*> Procedure to be Performed Endoretrogradecholangiopancreatography, Sphincterotomy, Biliary Duct Balloon Sweep, Biliary Duct Stone Extraction 12/22/20 15:42:14 Automation And Controls Manager: [id number] Modifier: [id number] 1 <*> Procedure to be Performed Endoretrogradecholangiopancreatography, Sphincterotomy, Biliary Duct Balloon Sweep, Biliary Duct Stone Extraction, Biliary Duct Stent Placement 12/22/20 15:40:52 Automation And Controls Manager: [id number] Modifier: [id number] 1 <*> Procedure to be Performed Endoretrogradecholangiopancreatography, Sphincterotomy, Biliary Duct Balloon Sweep, Biliary Duct Stone Extraction 12/22/20 15:33:38 Automation And Controls Manager: [id number] Modifier: [id number] 1 <*> Procedure to be Performed Endoretrogradecholangiopancreatography, Sphincterotomy, Biliary Duct Balloon Sweep 12/22/20 15:27:26 Automation And Controls Manager: [id number] Modifier: [id number] 1 <*> Procedure to be Performed Endoretrogradecholangiopancreatography, Sphincterotomy 12/22/20 15:25:13 Automation And Controls Manager: [id number] Modifier: [id number] 1 <*> Procedure to be Performed Endoretrogradecholangiopancreatography [facility] Endo - X-Ray and Images Entry 1 X-Ray/Imaging Type Fluoroscopy Fluoroscopy Type C-Arm Exposure Time 0.7 Last Modified By: Danitza Briones Rn 12/22/20 15:45:04 Case Comments <None> Finalized By: Bre Ferrara Rn Document Signatures Signed By: Bre Ferrara Rn 12/22/20 16:10 documented in this encounter Plan of Treatment Upcoming Encounters Date Type Department Care Team (Late st Contact Info) Description 08/11/2025 2:45 PM EST Office Visit [facility] Gastroenterology [address] [facility] [address] [place] [address] Kimberley Fierro MD [address] [facility] [address] [place] [address] [phone] documented as of this encounter Visit Diagnoses Not on filedocumented in this encounter Care Teams Technical Translator Relationship Specialty Start Date End Date Jw Askew MD [address] [place] [address] PCP - General Adolescent Medicine 09/05/22 Darcy Jamison PA-C [address] [facility] [address] [place] [address] [phone] Gastroenterology 11/18/24 documented as of this encounter
--- OUTSIDE RECORDS SUMMARY | 2025-05-11 11:07 | XMS_ITS | Encounter Summary ---
Author Organization [employer] ([place], [place], [place], [place]) Address [address] [place] [address] Care Team Providers Care Net Sql Developer Name Role Phone Jw Askew MD Primary Care Provider + [phone] Darcy Jamison PA-C Unavailable [phone] Reason for Visit * Reason Comments Medication Refill Encounter Details Date Type Department Care Team (Late st Contact Info) Description 05/09/2025 Refill [facility] Gastroenterology [address] [facility] [address] [place] [phone] Kimberley Fierro MD [address] [facility] [address] [place], [place] [phone] Chronic viral hepatitis B without delta agent and without coma (HCC) Social History Tobacco Use Types Packs/Day Years [...] Date Gustavo rded Speak language other than Romanian at home Not on file 09/19/2023 Want [...] Description 08/11/2025 2:45 PM EST Office Visit [facility] Gastroenterology [address] [facility] [address] [place] [phone] Kimberley Fierro MD [address] [facility] [place] [address] [phone] documented as of this encounter Visit Diagnoses Diagnosis Chronic viral hepatitis B without delta agent and without coma (HCC) documented in this encounter Care Teams Net Sql Developer Relationship Specialty Start Date End Date wJ Askew MD [address] [place] [address] PCP - General Adolescent Medicine 09/05/22 Darcy Jamison PA-C [address] [facility] [address] [place] [address] [phone] Gastroenterology 11/18/24 documented as of this encounter
--- OUTSIDE RECORDS SUMMARY | 2025-05-11 11:07 | XMS_ITS | Encounter Summary ---
Author Organization [employer] ([place], [place], [place], [place]) Address [address] [place] [address] Care Team Providers Care Older Adult Social Work Specialist Name Role Phone Jw Askew MD Primary Care Provider + [phone] Darcy Jamison PA-C Unavailable [phone] Encounter Details Date Type Department Care Team (Late st Contact Info) Description 12/22/2020 Transcribed Document [facility] [place] [address] [place] [address] ProviderCandi MD [address] [place], [place] [phone] Social History Tobacco Use Types Packs/Day Years Used Date Smoking Tobacco: Never Assessed Comments Unknown Sex and Gender Information Value Date Recorded Sex Assigned at Not on file Legal Sex Female 7:01 PM CDT Gender Identity Not on file Sexual Orientation Not on file documented as of this encounter Miscellaneous Notes * Cerner Conversion Note - Historical ProviderMD - 12/22/2020 1:33 PM CDT Pre Procedure Adult Entered On: 12/22/2020 13:37 EDT Performed On: 12/22/2020 13:33 EDT by Milka Mathew RN-PATIENT CARE BEDSIDE NON-EXEMPT Height and Weight, Clinical Dosing Height Source : Stated Height Entry Format : [place] Height, Feet : 5 ft(Converted to: 152 cm, 60 Inch) Height, Inches : 8 Inch(Converted to: 0 ft 8 Inch, 20.32 cm) Clinical Height : 172.72 cm Weight Source : Standing scale Weight Entry Format : [place] Clinical Dosing Weight : 75.45 kg Weight, Pounds : 166 lb Body Surface Area (BSA) : 1.89 m2 Body Mass Index : 25.3 kg/m2 (HI) [place] Body Weight : 63 kg Milka Mathew RN-PATIENT CARE [facility] NON-EXEMPT - 12/22/2020 13:33 EDT Health Histories Smoking Status : Former smoker, quit more than 30 days ago Smokeless Tobacco Status : Never Milka Mathew RN-PATIENT CARE [facility] NON-EXEMPT - 12/22/2020 13:33 EDT Social History (As Of: 12/22/2020 13:37:24 EDT) Tobacco: Use in Last 12 Months: Cigarettes. Smoking Status Current every day smoker. Packs/Tins Daily: 1. (Last Updated: 04/05/2013 13:56:04 EDT by APARNA PAVON RN) Infectious Disease History Has the patient ever been tested for COVID-19? : Yes, Patient stated results Negative Date of COVID-19 test known? : Yes Date of COVID-19 Test : 12/20/2020 EDT Does patient have symptoms of COVID-19? : No COVID19 Screening : No Experiencing Infectious Disease Symptoms : No symptoms Physical contact outside [place] in the last 30 days : No Infectious Disease History : None Tuberculosis Symptoms : None Milka Mathew RN-PATIENT CARE [facility] NON-EXEMPT - 12/22/2020 13:33 EDT COVID19 PreProcedure Screening Is this an Emergent or Add on Procedure? : No Date PreProcedure COVID-19 test known? : Yes Date of PreProcedure COVID-19 : 12/20/2020 EDT Has patient been isolated since the test : Yes Exposed to COVID19 symptoms since test? : No Milka Mathew RN-PATIENT CARE [facility] NON-EXEMPT - 12/22/2020 13:33 EDT Anesthesia/Transfusion History Family History of Anesthesia Reaction : No prior transfusion(s) Transfusion History : Prior anesthesia without reaction Family History of Anesthesia Reaction : None Milka Mathew RN-PATIENT CARE [facility] NON-EXEMPT - 12/22/2020 13:33 EDT Functional Assessment Living Situation : Home Current Home Treatments : None Milka Mathew RN-PATIENT CARE [facility] NON-EXEMPT - 12/22/2020 13:33 EDT [place] Suicide Severity Rating Scale (C-SSRS) CSSRS Past Month Wish to be : No CSSRS Past Month Suicidal Thoughts : No CSSRS Lifetime Suicide Behavior : No Suicide Severity Rating Score : 0 Suicide Severity Rating : No Additional Care Required at this time Milka Mathew RN-PATIENT CARE BEDSIDE NON-EXEMPT - 12/22/2020 13:33 EDT Psychosocial History Currently in Unsafe Situation : No Milka Mathew RN-PATIENT CARE BEDSIDE NON-EXEMPT - 12/22/2020 13:33 EDT Advance Directive Patient has Advance Directive *Q : No, patient refuses Advance Directive information Milka Mathew RN-PATIENT CARE BEDSIDE NON-EXEMPT - 12/22/2020 13:33 EDT General Info Want Family/Rep/Phys Notified of Admit : No Emergency Contact #1 : Patricia Emergency Contact #1 Emergency Contact #1 Relationship : mother in law Emergency Contact #2 : - Emergency Contact #2 Phone Number : - Emergency Contact #2 Relationship : - Primary Language : Jordanian Preferred Communication Mode : Verbal Communication Barrier : None Bell Staff Needed : No Milka Mathew RN-PATIENT CARE BEDSIDE NON-EXEMPT - 12/22/2020 13:33 EDT Sleep Apnea Risk Assmt Hx of Obstructive Sleep Apnea Diagnosis : No Snore Loudly : No Tired, Fatigued, or Sleepy During Day : No Observed Stopping Breathing During Sleep : No Have/Are Being Treated for Hypertension : No BMI Greater Than 35 kg/m2 : No Age over 50 Years Old : No Neck Circumference Greater Than 40 cm : No Gender Male : No STOP-BANG Sleep Apnea Risk Level Score : 0 Milka Mathew RN-PATIENT CARE BEDSIDE NON-EXEMPT - 12/22/2020 13:33 EDT Vel Scale Vel Sensory Perception : No impairment Vel Moisture : Rarely moist Vel Activity : Walks frequently Vel Mobility : No limitation Vel Nutrition : Excellent Vel Friction and Shear : No apparent problem Vel Score : 23 Milka Mathew RN-PATIENT CARE BEDSIDE NON-EXEMPT - 12/22/2020 13:33 EDT Fall Risk Scales ABCs Fall Injury Risk Identification : None FALCON Hx Falls Immediate/Within 3 Months : No [place] Secondary Diagnosis : Yes FALCON Use of Ambulatory Aid : None FALCON IV Therapy or IV Access : Yes Falcon Gait/Transferring : Normal, bedrest, immobile Falcon Mental Status : Oriented to own ability Falcon Fall Risk Score : 35 FALCON Fall Scale Risk Level : 25-45 Medium Risk [place] Fall Interventions : Adequate lighting, Bed in low position, Call device within reach, Non-slip footwear, Personal items within reach, Wheels locked Milka Mathew RN-PATIENT CARE BEDSIDE NON-EXEMPT - 12/22/2020 13:33 EDT Valuables and Belongings Valuables and Belongings : Clothing, Personal items Clothing : Common streetwear Clothing Disposition : Bedside Personal Items : Cell phone Personal Items Disposition : Bedside Milka Mathew RN-PATIENT CARE BEDSIDE NON-EXEMPT - 12/22/2020 13:33 EDT documented in this encounter Plan of Treatment Upcoming Encounters Date Type Department Care Team (Late st Contact Info) Description 08/11/2025 2:45 PM EST Office Visit [facility] Gastroenterology [address] [facility] [address] [place] [phone] Kimberley Fierro MD [address] [facility] [place], [place] [phone] documented as of this encounter Visit Diagnoses Not on filedocumented in this encounter Care Teams Older Adult Social Work Specialist Relationship Specialty Start Date End Date Jw Askew MD [address] [place] [address] PCP - General Adolescent Medicine 09/05/22 Darcy Jamison PA-C [address] [facility] [address] [place] [address] [phone] Gastroenterology 11/18/24 documented as of this encounter
--- OUTSIDE RECORDS SUMMARY | 2025-05-11 11:07 | XMS_ITS | Encounter Summary ---
Author Organization [facility] ([place], [place], [place], [place]) Address [address] [place] [address] Care Team Providers Care Leather Finisher Name Role Phone Jw Askew MD Primary Care Provider [phone] Darcy Jamison PA-C Unavailable [phone] Encounter Details Date Type Department Care Team (Late st Contact Info) Description 12/22/2020 Transcribed Document [facility] [address] [place] [address] ProviderCandi MD [address] [place] [address] Social History Tobacco Use Types Packs/Day Years Used Date Smoking Tobacco: Never Assessed Comments Unknown Sex and Gender Information Value Date Recorded Sex Assigned at Not on file Legal Sex Female 7:01 PM CDT Gender Identity Not on file Sexual Orientation Not on file documented as of this encounter Miscellaneous Notes * Cerner Conversion Note - Candi Bonilla MD - 12/22/2020 4:04 PM CDT [facility] [place] [id number] VARINDER INMAN JAYLON :1995 Visit Time:12/22/2020 What to do next Your Diagnosis Calculus of bile duct without cholangitis or cholecystitis without obstruction, Calculus of bile duct without cholangitis or cholecystitis without obstruction Instructions From Your Care Team Diet after Discharge: Resume usual diet as tolerated, Do not drink any alcoholic beverages, _ Activity after Discharge: Rest and relax today, No strenuous activity Driving after Discharge: Do not drive for 24 hours May Return to Work/School: Tomorrow Notify Provider of: Questions or concerns Follow-Up Appointments Follow Up with GABRIELA FIERRO MD-GAE When Comments Follow-up as instructed Where: [address] [place] [address]- Medications What How Much When Instructions Next Dose colestipol Oral ibuprofen (ibuprofen 800 mg oral tablet) 1 Tablet(s) Oral Every 8 Hours sertraline Oral Every Day tenofovir Oral Every Day Take your medications faithfully. Do NOT skip medication. Do NOT stop taking medications without the direction of a physician. Carry a list of your medications with you at all times, and take this medication list with you to your first follow up visit. Report any side effects. Avoid herbal remedies unless discussed with your physician. As part of your treatment plan, your physician may have prescribed a limited course of a controlled substance. This medication may be given to help people with moderate or severe pain or for other medical conditions, but there are risks involved with treatment. Common side effects may include nausea, constipation, drowsiness, sweating, itching, dry mouth, and rash. More serious side effects may include cognitive and motor impairment, like problems with thinking, concentrating, alertness, and movement (e.g. slowed reflexes), and driving and operating heavy machinery can be dangerous. It is important for you to talk to your physician if you have these side effects or questions. These controlled substances can produce physical dependence and be habit-forming if taken for an extended period of time, which means that the body has gotten used to them and may experience withdrawal symptoms if they are abruptly stopped. Withdrawal symptoms can include runny nose, sweating, goose bumps, diarrhea, abdominal cramping, rapid heartbeat, difficulty sleeping, and nervousness. Please dispose of unused and medications per pharmacy guidance. Education Materials General Anesthesia, Adult, Care After This sheet gives you information about how to care for yourself after your procedure. Your health care provider may also give you more specific instructions. If you have problems or questions, contact your health care provider. What can I expect after the procedure? After the procedure, the following side effects are common: ??? Pain or discomfort at the IV site. ??? Nausea. ??? Vomiting. ??? Sore throat. ??? Trouble concentrating. ??? Feeling cold or chills. ??? Weak or tired. ??? Sleepiness and fatigue. ??? Soreness and body aches. These side effects can affect parts of the body that were not involved in surgery. Follow these instructions at home: For at least 24 hours after the procedure: ??? Have a responsible adult stay with you. It is important to have someone help care for you until you are awake and alert. ??? Rest as needed. ??? Do not: ? Participate in activities in which you could fall or become injured. ? Drive. ? Use heavy machinery. ? Drink alcohol. ? Take sleeping pills or medicines that cause drowsiness. ? Make important decisions or sign legal documents. ? Take care of children on your own. Eating and drinking ??? Follow any instructions from your health care provider about eating or drinking restrictions. ??? When you feel hungry, start by eating small amounts of foods that are soft and easy to digest (bland), such as toast. Gradually return to your regular diet. ??? Drink enough fluid to keep your urine pale yellow. ??? If you vomit, rehydrate by drinking water, juice, or clear broth. General instructions ??? If you have sleep apnea, surgery and certain medicines can increase your risk for breathing problems. Follow instructions from your health care provider about wearing your sleep device: ? Anytime you are sleeping, including during daytime naps. ? While taking prescription pain medicines, sleeping medicines, or medicines that make you drowsy. ??? Return to your normal activities as told by your health care provider. Ask your health care provider what activities are safe for you. ??? Take zzfu-[id number]-fxevuys and prescription medicines only as told by your health care provider. ??? If you smoke, do not smoke without supervision. ??? Keep all follow-up visits as told by your health care provider. This is important. Contact a health care provider if: ??? You have nausea or vomiting that does not get better with medicine. ??? You cannot eat or drink without vomiting. ??? You have pain that does not get better with medicine. ??? You are unable to pass urine. ??? You develop a skin rash. ??? You have a fever. ??? You have redness around your IV site that gets worse. Get help right away if: ??? You have difficulty breathing. ??? You have chest pain. ??? You have blood in your urine or stool, or you vomit blood. Summary ??? After the procedure, it is common to have a sore throat or nausea. It is also common to feel tired. ??? Have a responsible adult stay with you for the first 24 hours after general anesthesia. It is important to have someone help care for you until you are awake and alert. ??? When you feel hungry, start by eating small amounts of foods that are soft and easy to digest (bland), such as toast. Gradually return to your regular diet. ??? Drink enough fluid to keep your urine pale yellow. ??? Return to your normal activities as told by your health care provider. Ask your health care provider what activities are safe for you. This information is not intended to replace advice given to you by your health care provider. Make sure you discuss any questions you have with your health care provider. Document Revised: 08/29/2018 Document Reviewed: 04/11/2018 [employer] Patient Education ?? 2020 [email or web address]. Endoscopic Retrograde Cholangiopancreatogram, Care After This sheet gives you information about how to care for yourself after your procedure. Your health care provider may also give you more specific instructions. If you have problems or questions, contact your health care provider. What can I expect after the procedure? After the procedure, it is common to have: ??? Soreness in your throat. ??? Nausea. ??? Bloating. ??? Dizziness. ??? Tiredness (fatigue). Follow these instructions at home: ??? Take hjkc-ovq-lszsvxl and prescription medicines only as told by your health care provider. ??? Do not drive for 24 hours if you were given a medicine to help you relax (sedative) during your procedure. Have someone stay with you for 24 hours after the procedure. ??? Return to your normal activities as told by your health care provider. Ask your health care provider what activities are safe for you. ??? Return to eating what you normally do as soon as you feel well enough or as told by your health care provider. ??? Keep all follow-up visits as told by your health care provider. This is important. Contact a health care provider if: ??? You have pain in your abdomen that does not get better with medicine. ??? You develop signs of infection, such as: ? Chills. ? Feeling unwell. Get help right away if: ??? You have difficulty swallowing. ??? You have worsening pain in your throat, chest, or abdomen. ??? You vomit bright red blood or a substance that looks like coffee grounds. ??? You have bloody or very black stools. ??? You have a fever. ??? You have a sudden increase in swelling (bloating) in your abdomen. Summary ??? After the procedure, it is common to feel tired and to have some discomfort in your throat. ??? Contact your health care provider if you have signs of infection???such as chills or feeling unwell???or if you have pain that does not improve with medicine. ??? Get help right away if you have trouble swallowing, worsening pain, bloody or black vomit, bloody or black stools, a fever, or increased swelling in your abdomen. ??? Keep all follow-up visits as told by your health care provider. This is important. This information is not intended to replace advice given to you by your health care provider. Make sure you discuss any questions you have with your health care provider. Document Revised: 08/08/2018 Document Reviewed: 07/15/2017 [employer] Patient Education ?? 2020 [employer] Emergency Awareness and Preventative Care STROKE is an EMERGENCY Every Minute Counts Act FAST and Check for these signs: FACE Does the face look uneven? ARM Does one arm drift down? SPEECH Does their speech sound strange? TIME Call at any sign of stroke Stroke Risk Factors Atrial Fibrillation (irregular heartbeat) Diabetes Family history of stroke Heart Disease Heavy alcohol use High Blood Pressure High Cholesterol Physical inactivity and obesity Smoking Cigarette Smoking The facts are clear, cigarette smoking will shorten your life. Smoking can cause many illnesses along the way. As a healthcare provider, we recommend that you stop smoking. Assistance with quitting is available by contacting NOW. This is a free resource providing counseling, support, and referral. Or you may contact your personal physician. National Suicide Prevention Lifeline: The National Suicide Prevention Lifeline is a national network of local crisis centers that provides free and confidential emotional support to people in suicidal crisis or emotional distress 24 hours a day, 7 days a week. Don't Wait! Stop a Heart Attack Before it Starts What is a heart attack? A heart attack is damage or to a part of the heart from severely decreased or lack of blood flow to the heart. Over time, arteries can become narrow from the buildup of fat and cholesterol, which is called plaque. The plaque can rupture causing a blood clot to form. When the blood clot forms, the artery can become severely narrowed or completely blocked, causing a heart attack. Heart attack is the leading cause of in the [place]. 85% of muscle damage occurs within the first 2 hours. Delay in the recognition of heart attack symptoms increases the chances of . Know the early symptoms of a heart attack: Nausea Feeling of fullness in chest Jaw Pain Pain that travels down one or both arms Fatigue/being tired Anxiety Back Pain Chest pressure, squeezing, or discomfort Shortness of breath Sweating, or a cold sweat Feeling of impending doom There are unusual signs of a heart attack, too! Women, the elderly, and diabetics may present with atypical symptoms: Fainting/dizziness Weakness Confusion Risk Factors for a Heart Attack Some heart disease risk factors, such as age and family history, cannot be changed. Others, like smoking and lack of exercise, can be changed. Smoking High Cholesterol High Blood Pressure Family History Obesity Age Gender (Males are at higher risk) Lack of Exercise Diabetes Diet Stress Excessive Alcohol Intake If you or someone you know is experiencing the signs and symptoms of a heart attack, DON???T DELAY. Call immediately and seek help. If someone collapses, perform CPR! Do not attempt to drive if you are having symptoms of heart attack. Hands-Only CPR Why Hands-Only CPR? Hands-Only CPR has been shown to be as effective as conventional CPR for cardiac arrests that occur outside of a hospital. Survival depends on immediately receiving CPR from someone nearby. How do you perform Hands-Only CPR? There are two easy steps: Call if you see a teen or adult collapse Push hard and fast in the center of the chest at a beat of 100 beats per minute. Save a life! 4 WAYS TO GET AHEAD OF SEPSIS SEPSIS is a MEDICAL EMERGENCY. Time matters! Infections put you and your family at risk for a life-threatening condition called sepsis. Sepsis is the body's extreme response to an infection. It is life-threatening, and without timely treatment, sepsis can rapidly lead to tissue damage, organ failure, and . Sepsis happens when an infection you already have-in your skin, lungs, urinary tract or somewhere else-triggers a chain reaction throughout your body. 1 PREVENT INFECTIONS Take good care of chronic conditions. Talk to your doctor about getting the recommended vaccines. 2 PRACTICE GOOD HYGIENE Wash your hands frequently. Keep cuts or open sores clean and covered until they are healed. 3 KNOW THE SYMPTOMS Confusion or disorientation Shortness of breath High heart rate Fever, shivering, or feeling very cold Extreme pain or discomfort Clammy or sweaty skin 4 ACT FAST Get medical care IMMEDIATELY if you suspect sepsis or if you have an infection that is not getting better or is getting worse. To learn more about sepsis and how to prevent infections, visit www.cdc.gov/sepsis. Test Results Laboratory or Other Results This Visit (last charted value for your 12/22/2020 visit) Microbiology 12/20/2020 3:20 PM SARS-CoV-2 (COVID19 PCR): Negative Patient Name:VARINDER INMAN I have received this information and was given the opportunity to ask questions. Patient/Instructional Developer Name: Patient/Instructional Developer Signature: Relationship to Patient: Clinician/Hospital Instructional Developer Signature: Date: documented in this encounter Plan of Treatment Upcoming Encounters Date Type Department Care Team (Late st Contact Info) Description 08/11/2025 2:45 PM EST Office Visit [facility] Gastroenterology [address] [facility] [address] [place] [id number] Gabriela Fierro MD [address] [address] documented as of this encounter Visit Diagnoses Not on filedocumented in this encounter Care Teams Leather Finisher Relationship Specialty Start Date End Date Jw Askew MD [address] [place] [address] PCP - General Adolescent Medicine 09/05/22 Darcy Jamison PA-C [address] [place] [id number] Gastroenterology 11/18/24 documented as of this encounter
--- OUTSIDE RECORDS SUMMARY | 2025-05-11 11:07 | XMS_ITS | Clinical Summary ---
Author Organization [employer] ([place], [place], [place], [place]) Address [address] [place] [address] Care Team Providers Care Loan Collector Name Role Phone Jw Askew MD Primary Care Provider + [phone] Darcy Jamison PA-C Unavailable [phone] Allergies No known active allergies Medications tenofovir (VIREAD) 300 mg tabletIndicatio ns:Chronic viral hepatitis B without delta agent and without coma (HCC) TAKE 1 TABLET BY MOUTH DAILY 90 tablet 3 5 Active tenofovir (VIREAD) 300 mg tabletIndicatio ns:Chronic viral hepatitis B without delta agent and without coma (HCC) Take 1 tablet (300 mg total) by mouth daily. 90 tablet 3 5 05/11/20 25 Discontinued Active Problems Problem Noted Date Diagnosed Date Chronic viral hepatitis B wi thout delta agent and without coma 05/20/2024 History of hepatitis C virus infection 4 Encounters Date Type Department Care Team Description 05/09/2025 Refill [facility] Gastroenterology [address] [facility] [address] [place] [address] Kimberley Fierro MD Chronic viral hepatitis B without delta agent and without coma (HCC) 03/15/2025 9:00 AM EDT - 03/15/2025 11:59 PM EDT Hospital Encounter [facility] Ultrasound [address] [place] [address] Darcy Jamison PA-C Chronic viral hepatitis B without delta agent and without coma (HCC) Discharge Disposition: Home or Self Care 03/15/2025 Travel 02/17/2025 10:30 AM EDT Office Visit [facility] Gastroenterology [address] [facility] [address] [place] [phone] Darcy Jamison PA-C Chronic viral hepatitis B without delta agent and without coma (HCC) (Primary Dx); Low back pain; History of hepatitis C virus infection; Irritable bowel syndrome with both constipation and diarrhea 02/11/2025 Orders Only [facility] Gastroenterology [address] [facility] [address] [place] [phone] Meagan Acharya Chronic viral hepatitis B without delta agent and without coma (HCC) 02/11/2025 Telephone [facility] Gastroenterology [address] [facility] [address] [place] [phone] Darcy Jamison PA-C medication from Last 3 Months Family History Medical History Relation Name Comments Alcohol abuse Father High blood pressure Maternal Grandmother Depression Mother High blood pressure Mother Diabetes type I Paternal Grandmother High blood pressure Paternal Grandmother Relation Name Status Comments Father Maternal Grandmother Mother Paternal Grandmother Social History Tobacco Use Types Packs/Day Years [...] Date Gustavo rded Speak language other than Russian at home Not on file 09/19/2023 Want [...] on file Sexual Orientation Not on file Last Filed Vital Signs Vital Sign Reading Time Taken Comments Blood Pressure 122/82 02/17/2025 10:36 AM EDT Pulse 82 02/17/2025 10:36 AM EDT Temperature - - Respiratory Rate - - Oxygen Saturation - - Inhaled Oxygen Concentration - - Weight 77.6 kg (171 lb) 02/17/2025 10:36 AM EDT Height 175.3 cm (5' 9 ) 02/17/2025 10:36 AM EDT Body Mass Index 25.25 02/17/2025 10:36 AM EDT Plan of Treatment Upcoming Encounters Date Type Department Care Team (Late st Contact Info) Description 08/11/2025 2:45 PM EST Office Visit [facility] Gastroenterology [address] [facility] [address] [place] [phone] Kimberley Fierro MD [address] [facility] [address] [place] [address] Health Maintenance Due Date Last Done Comments Depression Screening (12+) 2005 HIV Screening 2008 Pneumococcal Vaccine: 0-49 Y ears (1 of 2 - PCV) 2012 Pap Smear 2014 COVID-19 VACCINE ( - 2023-2 5 season) 2025 Influenza Vaccine (#1) 2025 Tobacco Cessation Counseling and Screening (12+) 05/20/2025 05/20/2024 DTAP/TDAP/TD VACCINES (5 - T d or Tdap) 01/08/2026 01/09/2016, 02/06/2011, 05/17/2005, Additional history exists Procedures Procedure Name Priority Date/Time Associated Diagnosis Comments US LIVER Routine 03/15/2025 9:44 AM EDT Chronic viral hepatitis B without delta agent and without coma (HCC) PROTHROMBIN TIME/INR Routine 02/17/2025 11:22 AM EDT Chronic viral hepatitis B without delta agent and without coma (HCC) Low back pain History of hepatitis C virus infection Irritable bowel syndrome with both constipation and diarrhea ALPHA FETOPROTEIN (AFP), TUMOR MARKER Routine 02/17/2025 11:22 AM EDT Chronic viral hepatitis B without delta agent and without coma (HCC) Low back pain History of hepatitis C virus infection Irritable bowel syndrome with both constipation and diarrhea CBC W/PLT COUNT & AUTO DIFFERENTIAL Routine 02/17/2025 11:22 AM EDT Chronic viral hepatitis B without delta agent and without coma (HCC) Low back pain History of hepatitis C virus infection Irritable bowel syndrome with both constipation and diarrhea COMPREHENSIVE METABOLIC PANEL Routine 02/17/2025 11:22 AM EDT Chronic viral hepatitis B without delta agent and without coma (HCC) Low back pain History of hepatitis C virus infection Irritable bowel syndrome with both constipation and diarrhea from Last 3 Months Results * Ultrasound liver (03/15/2025 9:44 AM [...] [place] Blood PA-C. us Darcy Jamison PA-C IM US ORDERABLES Final Result * Alpha fetoprotein (AFP), tumor marker (02/17/2025 11:22 AM EDT) Pathologist [facility] AFP, Serum, Tumor Marker 3.3 0.0 - 6.4 ng/mL [facility] Comment: [employer] Electrochemiluminescence Immunoassay (ECLIA) Values obtained with different assay methods or kits cannot be used interchangeably. Results cannot be interpreted as absolute evidence of the presence or absence of malignant disease. This test is not interpretable in females. Blood 02/17/2025 11:2 2 AM EDT 02/17/2025 Narrative [facility] - 02/18/2025 8:07 AM EDT Performed at: [address] [id number] Duck Farmer: Zion Somers PhD, Phone: [phone] Darcy Jamison PA-C LAB BLOOD ORDERABLES Final Res ult Performing Organization Address [facility] de Phone Number [facility] * Prothrombin time/INR (02/17/2025 11:22 AM EDT) Pathologist [facility] INR 1.1 0.9 - 1.2 [facility] Comment: Reference interval is for non-anticoagulated patients. Suggested INR therapeutic range for Vitamin K antagonist therapy: Standard Dose (moderate intensity therapeutic range): 2.0 - 3.0 Higher intensity therapeutic range 2.5 - 3.5 Prothrombin Time 11.5 9.1 - 12.0 sec [facility] Blood 02/17/2025 11:2 2 AM EDT 02/17/2025 Narrative [facility] - 02/18/2025 8:07 AM EDT Performed at: [address] [id number] Duck Farmer: Citlali Flynn MD, Phone: [phone] Darcy Jamison PA-C LAB BLOOD ORDERABLES Final Res ult Performing Organization Address [facility]/ZIP Co de Phone Number [facility] * CBC with platelet count + automated diff (02/17/2025 11:22 AM EDT) [facility] WBC 6.4 3.4 - 10.8 x10E3/uL [facility] RBC 4.32 3.77 - 5.28 x10E6/uL [facility] Hemoglobin 13.8 11.1 - 15.9 g/dL [facility] Hematocrit 41.5 34.0 - 46.6 % [facility] MCV 96 79 - 97 fL [facility] MCH 31.9 26.6 - 33.0 pg [facility] MCHC 33.3 31.5 - 35.7 g/dL [facility] RDW 12.0 11.7 - 15.4 % [facility] Platelets 289 150 - 450 x10E3/uL [facility] % Neutros 65 Not Estab. % [facility] % Lymphs 21 Not Estab. % [facility] % Monos 10 Not Estab. % [facility] % Eos 4 Not Estab. % [facility] % Baso 0 Not Estab. % [facility] # Neutros 4.2 1.4 - 7.0 x10E3/uL [facility] # Lymphs 1.3 0.7 - 3.1 x10E3/uL [facility] # Monos 0.6 0.1 - 0.9 x10E3/uL [facility] # Eos 0.2 0.0 - 0.4 x10E3/uL [facility] Baso (Absolute) 0.0 0.0 - 0.2 x10E3/uL [facility] Blood 02/17/2025 11:2 2 AM EDT 02/17/2025 Narrative [facility] - 02/18/2025 8:07 AM EDT Performed at: 01 - [facility] [address] [id number] Duck Farmer: Citlali Flynn MD, Phone: [phone] us Darcy Jamison PA-C LAB BLOOD ORDERABLES Final Res ult [facility] * (ABNORMAL) Comprehensive metabolic panel (02/17/2025 11:22 AM EDT) Pathologist [facility] Glucose, Serum 82 70 - 99 mg/dL [facility] BUN 12 6 - 20 mg/dL [facility] Creatinine, Serum 0.60 0.57 - 1.00 mg/dL [facility] EGFR 123 >59 mL/min/1.7 3 [facility] BUN/Creatinine Ratio 20 9 - 23 [facility] Sodium, Serum 136 134 - 144 mmol/L [facility] Potassium, Serum 4.2 3.5 - 5.2 mmol/L [facility] Chloride, Serum 102 96 - 106 mmol/L [facility] Carbon Dioxide, Total 27 20 - 29 mmol/L [facility] Calcium, Serum 9.4 8.7 - 10.2 mg/dL [facility] Protein, Total, Serum 6.6 6.0 - 8.5 g/dL [facility] Albumin, Serum 4.5 3.9 - 4.9 g/dL [facility] Globulin, Total 2.1 1.5 - 4.5 g/dL [facility] Bilirubin, Total 1.5(H) 0.0 - 1.2 mg/dL [facility] Alkaline Phosphatase, S 67 44 - 121 IU/L [facility] AST (SGOT) 20 0 - 40 IU/L [facility] ALT (SGPT) 24 0 - 32 IU/L [facility] Blood 02/17/2025 11:2 2 AM EDT 02/17/2025 Narrative [facility] - 02/18/2025 8:07 AM EDT Performed at: 01 - [address] [id number] Duck Farmer: Citlali Flynn MD, Phone: [phone] us Darcy Jamison PA-C LAB BLOOD ORDERABLES Final Res ult [facility] from Last 3 Months Insurance [facility] CHOICE PLUS Care Teams Loan Collector Relationship Specialty Start Date End Date Jw Askew MD [address] [place] [address] PCP - General Adolescent Medicine 09/05/22 Darcy Jamison PA-C [address] [phone] Gastroenterology 11/18/24
--- OUTSIDE RECORDS SUMMARY | 2025-05-11 11:08 | XMS_ITS | Encounter Summary ---
Author Organization [employer] ([place], [place], [place], [place]) Address [address] [place] [address] Care Team Providers Care Php Programmer Name Role Phone Jw Askew MD Primary Care Provider + [phone] Darcy Jamison PA-C Unavailable [phone] Encounter Details Date Type Department Care Team (Late st Contact Info) Description 12/22/[address] [facility] Family Medicine [address] [place] [address] Candi Bonilla MD [address] [place], [place] [id number] Social History Tobacco Use Types Packs/Day Years [...] Bonilla MD - 12/22/2020 4:04 PM CDT Patient Education Materials Follows: General Anesthesia, Adult, Care After This sheet [...] activities are safe for you. ??? Take [id number]-seyxkij and prescription medicines only as told by [...] provider. Document Revised: 08/29/2018 Document Reviewed: 04/11/2018 [employer] Patient Education ? 2020 [employer] Endoscopic Retrograde Cholangiopancreatogram, Care After This sheet [...] Follow these instructions at home: ??? Take oycw-mbq-zcxirwo and prescription medicines only as told by [...] care provider if you have signs of infection?such as chills or feeling unwell?or if you have pain that does not [...] provider. Document Revised: 08/08/2018 Document Reviewed: 07/15/2017 [employer] Patient Education ? 2020 [employer] documented in this encounter Plan of Treatment Upcoming Encounters Date Type Department Care Team (Late st Contact Info) Description 08/11/2025 2:45 PM EST Office Visit [facility] Gastroenterology [address] [facility] [address] [place] [address] Kimberley Fierro MD [address] [facility] [address] [place] [address] documented as of this encounter Visit Diagnoses Not on filedocumented in this encounter Care Teams Php Programmer Relationship Specialty Start Date End Date Jw Askew MD [address] [place], [place] [address] PCP - General Adolescent Medicine 09/05/22 Darcy Jamison PA-C [address] [place] [address] Gastroenterology 11/18/24 documented as of this encounter
--- OUTSIDE RECORDS SUMMARY | 2025-05-11 11:08 | XMS_ITS | Encounter Summary ---
Author Organization [employer] ([place], [place], [place], [place]) Address [address] [place] [address] Care Team Providers Care Extrusion Press Adjuster Name Role Phone Jw Askew MD Primary Care Provider + [phone] Darcy Jamison PA-C Unavailable [phone] Encounter Details Date Type Department Care Team (Late st Contact Info) Description 12/22/2020 Transcribed Document [facility] [place] Medicine [address] [place] [address] ProviderCandi MD [address] [place] [id number] Social History Tobacco Use Types Packs/Day Years Used Date Smoking Tobacco: Never Assessed Comments Unknown Sex and Gender Information Value Date Recorded Sex Assigned at Not on file Legal Sex Female 7:01 PM CDT Gender Identity Not on file Sexual Orientation Not on file documented as of this encounter Miscellaneous Notes * Cerner Conversion Note - Candi ProviderMD - 12/22/2020 2:00 PM CDT [facility] Endo PreOp Summary Primary Physician: GABRIELA FIERRO MD-GAE Finalized Date/Time: 12/22/20 14:08:16 Pt. Name: VARINDER INMAN JAYLON /Sex: 1995 Female Med Rec #: [id number] Physician: GABRIELA FIERRO MD-GAE Financial #: [id number] Pt. Type: O Room/Bed: END/ Admit/Disch: 12/22/20 13:07:00 - Institution: [facility] Endo PreOp Case Times Entry 1 In Preop 12/22/20 13:20:00 Ready for Holding n/a Room Patient Ready for n/a Surgery Patient Out of Preop 12/22/20 14:08:00 Patient Out of n/a Holding Room Last Modified By: Milka Mathew RN-PATIENT CARE BEDSIDE NON-EXEMPT 12/22/20 14:08:13 [facility] Endo PreOp Case Times Audit 12/22/20 14:08:13 Ceramic Mold Designer: CAROLE Modifier: [email or web address] <+> 1 Patient Out of Preop Finalized By: Milka Mathew RN-PATIENT CARE BEDSIDE NON-EXEMPT Document Signatures Signed By: Milka Mathew RN-PATIENT CARE BEDSIDE NON-EXEMPT 12/22/20 14:08 Electronically signed by Bre [facility] Conversion Sign Builder Supervisor Cerner at 12/27/2022 6:35 PM CDT documented in this encounter Plan of Treatment Upcoming Encounters Date Type Department Care Team (Late st Contact Info) Description 08/11/2025 2:45 PM EST Office Visit [facility] Gastroenterology [address] [facility] [address] [place] [phone] Gabriela Fierro MD [address] [facility] [address] [place], [place] [phone] documented as of this encounter Visit Diagnoses Not on filedocumented in this encounter Care Teams Extrusion Press Adjuster Relationship Specialty Start Date End Date Jw Askew MD [address] [place] [address] PCP - General Adolescent Medicine 09/05/22 Darcy Jamison PA-C [address] [facility] [address] [place] [phone] Gastroenterology 11/18/24 documented as of this encounter
--- OUTSIDE RECORDS SUMMARY | 2025-05-11 11:08 | XMS_ITS | Encounter Summary ---
Author Organization [employer] ([place], [place], [place], [place]) Address [address] [place] [address] Care Team Providers Care Child Health Associate Name Role Phone Jw Askew MD Primary Care Provider + [phone] Darcy Jamison PA-C Unavailable [phone] Encounter Details Date Type Department Care Team (Late st Contact Info) Description 12/22/2020 Transcribed Document [facility] [place] [address] [place] [address] ProviderCandi MD [address] [place] [id number] Social History Tobacco Use Types Packs/Day Years Used Date Smoking Tobacco: Never Assessed Comments Unknown Sex and Gender Information Value Date Recorded Sex Assigned at Not on file Legal Sex Female 7:01 PM CDT Gender Identity Not on file Sexual Orientation Not on file documented as of this encounter Miscellaneous Notes * Cerner Conversion Note - Candi ProviderMD - 12/22/2020 3:15 PM CDT [facility] Endo PACU Summary Primary Physician: GABRIELA FIERRO MD-GAE Finalized Date/Time: 12/22/20 16:44:33 Pt. Name: STORM VARINDER JAYLON /Sex: 1995 Female Med Rec #: [id number] Physician: GABRIELA FIERRO MD-GAE Financial #: [id number] Pt. Type: O Room/Bed: END/ Admit/Disch: 12/22/20 13:07:00 - Institution: [facility] Endo PACU Case Times Entry 1 In PACU I 12/22/20 16:00:00 Ready for PACU 12/22/20 16:44:00 Discharge Discharge from PACU 12/22/20 16:44:00 I Last Modified By: Lucia Portillo, RUFUS 12/22/20 16:44:31 [facility] Endo PACU Case Times Audit 12/22/20 16:44:31 Allied Health Professional: [id number] Modifier: [id number] <+> 1 Ready for PACU Discharge <+> 1 Discharge from PACU I Finalized By: Lucia Portillo, RN Document Signatures Signed By: Lucia Portillo RN 12/22/20 16:44 Electronically signed by Bre [facility] Conversion Seat Pack Inspector Cerner at 12/27/2022 6:37 PM CDT documented in this encounter Plan of Treatment Upcoming Encounters Date Type Department Care Team (Late st Contact Info) Description 08/11/2025 2:45 PM EST Office Visit [facility] Gastroenterology [address] [facility] [address] [place] [phone] Gabriela Fierro MD [address] [facility] [address] [place] [phone] documented as of this encounter Visit Diagnoses Not on filedocumented in this encounter Care Teams Child Health Associate Relationship Specialty Start Date End Date Jw Askew MD [address] [place] [address] PCP - General Adolescent Medicine 09/05/22 Darcy Jamison PA-C [address] [facility] [address] [place] [phone] Gastroenterology 11/18/24 documented as of this encounter
--- OUTSIDE RECORDS SUMMARY | 2025-05-11 11:08 | XMS_ITS | Referral Summary ---
Author Organization [employer] ([place], [place], [place], [place]) Address [address] [place] [address] Care Team Providers Care Event Designer Name Role Phone Jw Askew MD Primary Care Provider + [phone] Darcy Jamison PA-C Unavailable [phone] Encounters Date Type Department Care Team Description 05/09/2025 Refill [facility] Gastroenterology [address] [place] [address] [address] [place] [phone] Kimberley Fierro MD Chronic viral hepatitis B without delta agent and without coma (HCC) 03/15/2025 Travel 03/15/2025 9:00 AM EDT - 03/15/2025 11:59 PM EDT Hospital Encounter [facility] Ultrasound [address] [place] [address] Darcy Jamison PA-C Chronic viral hepatitis B without delta agent and without coma (HCC) Discharge Disposition: Home or Self Care 02/17/2025 10:30 AM EDT Office Visit [facility] Gastroenterology [address] [place] [address] [address] [place] [phone] Darcy Jamison PA-C Chronic viral hepatitis B without delta agent and without coma (HCC) (Primary Dx); Low back pain; History of hepatitis C virus infection; Irritable bowel syndrome with both constipation and diarrhea 02/11/2025 Orders Only [facility] Gastroenterology [address] [place] [address] [address] [place] [phone] Meagan Acharya Chronic viral hepatitis B without delta agent and without coma (HCC) 02/11/2025 Telephone [facility] Gastroenterology [address] [facility] [address] [place] [phone] Darcy Jamison PA-C medication from Last 3 Months Allergies No known active allergies Medications tenofovir [...] History of hepatitis C virus infection 4 Social History Tobacco Use Types Packs/Day Years [...] Date Gustavo rded Speak language other than South African at home Not on file 09/19/2023 Want [...] Description 08/11/2025 2:45 PM EST Office Visit [facility] Gastroenterology [address] [facility] [address] [place] [phone] Kimberley Fierro MD [address] [facility] [address] [place] [address] Procedures Procedure Name Priority Date/Time Associated Diagnosis [...] Romi Sidhu. Transcribed by [place] Blood PA-C. Darcy Jamison PA-C IM US ORDERABLES Final Result * Alpha fetoprotein (AFP), tumor marker (02/17/2025 11:22 AM EDT) Pathologist [facility] AFP, Serum, Tumor Marker 3.3 0.0 - 6.4 ng/mL [facility] Comment: [employer] Electrochemiluminescence Immunoassay (ECLIA) Values obtained with different assay methods or kits cannot be used interchangeably. Results cannot be interpreted as absolute evidence of the presence or absence of malignant disease. This test is not interpretable in females. Blood 02/17/2025 11:2 2 AM EDT 02/17/2025 Narrative [facility] - 02/18/2025 8:07 AM EDT Performed at: [address] [place] [id number] Club Manager: Zion Somers PhD, Phone: [phone] us Darcy Jamison PA-C LAB BLOOD ORDERABLES Final Res ult [facility] * Prothrombin time/INR (02/17/2025 11:22 AM EDT) INR 1.1 0.9 - 1.2 [facility] Comment: Reference interval is for non-anticoagulated patients. Suggested INR therapeutic range for Vitamin K antagonist therapy: Standard Dose (moderate intensity therapeutic range): 2.0 - 3.0 Higher intensity therapeutic range 2.5 - 3.5 Prothrombin Time 11.5 9.1 - 12.0 sec [facility] Blood 02/17/2025 11:2 2 AM EDT 02/17/2025 Narrative [facility] - 02/18/2025 8:07 AM EDT Performed at: 01 - [facility] [id number] Club Manager: Citlali Flynn MD, Phone: [phone] us Darcy Jamison PA-C LAB BLOOD ORDERABLES Final Res ult [facility] * CBC with platelet count + automated diff (02/17/2025 11:22 AM EDT) WBC 6.4 3.4 - 10.8 x10E3/uL [facility] [...] 8:07 AM EDT Performed at: 01 - [address] [id number] Club Manager: Citlali Flynn MD, Phone: [phone] us Darcy Jamison PA-C LAB BLOOD ORDERABLES Final Res ult [facility] * (ABNORMAL) Comprehensive metabolic panel (02/17/2025 11:22 AM EDT) Pathologist [facility] Glucose, Serum 82 70 - 99 mg/dL [...] AM EDT Performed at: 01 - [facility] [address] [place] [address] [address], [place], [place] [id number] Club Manager: Citlali Flynn MD, Phone: [phone] us Darcy Jamison PA-C LAB BLOOD ORDERABLES Final Res ult [facility] from Last 3 Months Insurance [facility] CHO[employer] PL[employer] Care Teams Event Designer Relationship Specialty Start Date End Date Jw Askew MD [address] [place] [address] PCP - General Adolescent Medicine 09/05/22 Darcy Jamison PA-C [address] [facility] [address] [place] [address] Gastroenterology 11/18/24
== END 2025-05-10 23:59 | disposition home or self-care (01) ==
LOC: LAB.DROPOF 05-11 10:31
PROVIDERS: PCP Student in an Organized Health Care Education/Training Program; Visit Provider Student in an Organized Health Care Education/Training Program
DX: J06.9 Acute upper respiratory infection, unspecified (principal)
CPT/HCPCS: 87631

== ENCOUNTER 2025-06-15 15:30 | Outpatient (CLI) | payer OTHER, SELFPAY ==
--- OUTSIDE RECORDS SUMMARY | 2025-06-15 22:41 | XMS_ITS | Encounter Summary ---
Author Organization [employer] ([place], [place], [place], [place]) Address [address] [place] [address] Care Team Providers Care Shot Packer Name Role Phone Jw Askew MD Primary Care Provider + [phone] Darcy Jamison PA-C Unavailable [phone] Encounter Details Date Type Department Care Team (Late st Contact Info) Description 12/22/2020 Transcribed Document [facility] Family Medicine [address] [place] [address] ProviderCandi MD [address] [place] [address] Social History Tobacco Use Types [...] Bonilla MD - 12/22/2020 4:04 PM CDT [facility] [place] [id number] VARINDER INMAN JAYLON :1995 Visit Time:12/22/2020 What [...] When Comments Follow-up as instructed Where: [address] [place] [address]- Medications What How Much When Instructions Next [...] activities are safe for you. ??? Take hgre-coi-ygmpelw and prescription medicines only as told by [...] provider. Document Revised: 08/29/2018 Document Reviewed: 04/11/2018 [employer] Patient Education ?? 2020 [employer]. Endoscopic Retrograde Cholangiopancreatogram, Care After This sheet [...] Follow these instructions at home: ??? Take bkrc-eqs-cyvsivl and prescription medicines only as told by [...] provider. Document Revised: 08/08/2018 Document Reviewed: 07/15/2017 [employer] Patient Education ?? 2020 [employer] Emergency Awareness and Preventative Care STROKE [...] was given the opportunity to ask questions. Patient/Form Block Maker Name: Patient/Form Block Maker Signature: Relationship to Patient: Clinician/Hospital Form Block Maker Signature: Date: Electronically signed by Bre, Marko Conversion Housing Quality Standard Inspector Cerner at 12/27/2022 6:42 PM CDT documented in this encounter Plan of Treatment Upcoming Encounters Date Type Department Care Team (Late st Contact Info) Description 08/11/2025 2:45 PM EST Office Visit [facility] Gastroenterology [address] [place] [phone] [place] [address] [place], [place] [id number] documented as of this encounter Visit Diagnoses Not on filedocumented in this encounter Care Teams Shot Packer Relationship Specialty Start Date End Date Jw Askew MD [address] [place] [address] [place] [address] PCP - General Adolescent Medicine 09/05/22 Darcy Jamison PA-C [address] [place] [address] [place] [address] Gastroenterology 11/18/24 documented as of this encounter
--- OUTSIDE RECORDS SUMMARY | 2025-06-15 22:42 | XMS_ITS | Encounter Summary ---
Author Organization [employer] ([place], [place], [place], [place]) Address [address] [place] [address] Care Team Providers Care Hand Stone Polisher Name Role Phone Jw Askew MD Primary Care Provider + [phone] Darcy Jamison PA-C Unavailable [phone] Reason for Visit * Reason Comments Medication Refill Encounter Details Date Type Department Care Team (Late st Contact Info) Description 08/27/2022 Refill [facility] Gastroenterology [address] [place] [phone] Kimberley Fierro MD [address] [place] [address] [id number] Chronic viral hepatitis B without delta agent [...] Description 08/11/2025 2:45 PM EST Office Visit [facility] Gastroenterology [address] [place] [phone] Kimberley Fierro MD [address] [place] [phone] documented as of this encounter Visit Diagnoses Diagnosis Chronic viral hepatitis B without delta agent and without coma (HCC)- Primary documented in this encounter Care Teams Hand Stone Polisher Relationship Specialty Start Date End Date Jw Askew MD [address] [place] [address] [place] [address] PCP - General Adolescent Medicine 09/05/22 Darcy Jamison PA-C [address] [place] [facility] [address] [place] [address] Gastroenterology 11/18/24 documented as of this encounter
--- OUTSIDE RECORDS SUMMARY | 2025-06-15 22:42 | XMS_ITS | Data Portability ---
Author Organization [employer] Address [address] [place] [address] Assessment No assessment recorded. Plan of Treatment Reminders Order Date Submit Date Provider Last Modified By Organization Details Last Modified Time Details Appointments FOLLOW UP 30 2024 11:30A Kati Guillen PA-C Not available Not available Not available Lab Hepatitis C IgG Ab, qual, serum 2024 025 [facility] [address] [place], [address], 10/26/2024 18:07:29 lipid panel, serum [address] [facility], [address] [place], [address], 10/26/2024 18:07:28 CMP, serum or plasma 2024 [address] [facility]), [address] [place], [address], 10/26/2024 18:07:28 CBC w/ auto diff 2024 [address] [facility]), [address] [place], [address], 10/26/2024 18:07:27 vitamin D, 25-hydrox y, total, serum 2024 [address] [facility]), [address] [place], [address], 10/26/2024 18:07:29 TSH, ultra-sen sitive, serum 2024 025 [facility] [address] [place], [address], 10/26/2024 18:07:29 HIV 1 + 2, meaningfu l use set 2024 025 [facility] [address] [place], [address], 10/26/2024 18:07:30 Referral None recorded. Procedures None recorded. Surgeries None recorded. Imaging None recorded. Medication Orders buspirone 5 mg tablet 2024 025 [facility], [address], [address], 05/06/2025 12:56:50 Caplyta 10.5 mg capsule 2023 025 [facility], [address], [address], 04/08/2025 13:33:39 Patient TargetsNo targets recorded. Patient Instructions Encounter Date Encounter Id Patient Instructions Last Modified By Organization Details Last Modified Time 08/18/2024 [id number] bipolar disorder : care instructions [email or web address] Not available 08/18/2024 14:59:40 learning about mood disorders [email or web address] Not available 08/18/2024 14:59:40 09/11/2024 [id number] bipolar disorder : care instructions [email or web address] Not available 09/11/2024 15:08:31 learning about mood disorders [email or web address] Not available 09/11/2024 15:08:31 10/23/2024 [id number] bipolar disorder : care instructions [email or web address] Not available 10/23/2024 17:15:31 learning about mood disorders [email or web address] Not available 10/23/2024 17:15:31 03/15/2025 [id number] bipolar disorder : care instructions [email or web address] Not available 03/15/2025 17:08:44 learning about mood disorders [email or web address] Not available 03/15/2025 17:08:44 05/06/2025 [id number] bipolar disorder : care instructions Not available 05/06/2025 12:56:44 learning about mood disorders [email or web address] Not available 05/06/2025 12:56:44 Reason for Referral None Reported. Results Created Date Observation Date Name Description Value Unit Range Abnormal Flag Note LastModifiedBy Organization Detail LastModifiedTime 10/23/1910/24/2024 CBC WITH DIFFE RENTI AL/PL ATELE T WBC 7.6 x10e3 /uL 3.4-10 .8 normal Not Available [facility] ([facility]) [address] [place], [address], 10/26/2024 18:07:27 10/23/19 25 10/24/2024 CBC WITH DIFFE RENTI AL/PL ATELE T RBC 4.41 x10e6 /uL 3.77-5 .28 normal Not Available [facility] ([facility]) [address] [place], [address], 10/26/2024 18:07:27 10/23/19 25 10/24/2024 CBC WITH DIFFE RENTI AL/PL ATELE T hemoglobin 14.3 g/dL 11.1-1 5.9 normal Not Available [facility] ([facility]) [address] [place], [address], 10/26/2024 18:07:27 10/23/1910/24/2024 CBC WITH DIFFE RENTI AL/PL ATELE T hematocrit 43.2 % 34.0-4 6.6 normal Not Available [facility] ([facility]) [address] [place], [address], 10/26/2024 18:07:27 10/23/1910/24/2024 CBC WITH DIFFE RENTI AL/PL ATELE T MCV 98 fL 79-97 above high normal Not Available [facility] ([facility]) [address] [place], [address], 10/26/2024 18:07:27 10/23/19 25 10/24/2024 CBC WITH DIFFE RENTI AL/PL ATELE T MCH 32.4 pg 26.6-3 3.0 normal Not Available [facility] ([facility]) [address] [facility], [place], [address], 10/26/2024 18:07:27 10/23/19 25 10/24/2024 CBC WITH DIFFE RENTI AL/PL ATELE T MCHC 33.1 g/dL 31.5-3 5.7 normal Not Available [facility] ([facility]) [address] [place], [address], 10/26/2024 18:07:27 10/23/19 25 10/24/2024 CBC WITH DIFFE RENTI AL/PL ATELE T RDW 11.8 % 11.7-1 5.4 Not Available [facility] ([facility]) [address] [facility], [place], [address], 10/26/2024 18:07:27 10/23/19 25 10/24/2024 CBC WITH DIFFE RENTI AL/PL ATELE T platelets 303 x10e3 /uL 150-45 0 normal Not Available [facility] ([facility]) [address] [place], [address], 10/26/2024 18:07:27 10/23/19 25 10/24/2024 CBC WITH DIFFE RENTI AL/PL ATELE T neutrophils 68 % not estab. normal Not Available [facility] ([facility]) [address] [place], [address], 10/26/2024 18:07:27 10/23/19 25 10/24/2024 CBC WITH DIFFE RENTI AL/PL ATELE T lymphs 18 % not estab. normal Not Available [facility] ([facility]) [address] [place], [address], 10/26/2024 18:07:27 10/23/19 25 10/24/2024 CBC WITH DIFFE RENTI AL/PL ATELE T monocytes 9 % not estab. normal Not Available [facility] ([facility]) [address] [facility], [place], [address], 10/26/2024 18:07:27 10/23/19 25 10/24/2024 CBC WITH DIFFE RENTI AL/PL ATELE T eos 3 % not estab. normal Not Available [facility] ([facility]) [address] [place], [address], 10/26/2024 18:07:27 10/23/19 25 10/24/2024 CBC WITH DIFFE RENTI AL/PL ATELE T basos 1 % not estab. normal Not Available [facility] ([facility]) [address] [place], [address], 10/26/2024 18:07:27 10/23/19 25 10/24/2024 CBC WITH DIFFE RENTI AL/PL ATELE T immature cells IRON POURER Not Available [facility] ([facility]) [address] [place], [address], 10/26/2024 18:07:27 10/23/19 25 10/24/2024 CBC WITH DIFFE RENTI AL/PL ATELE T neutrophils (absolute) 5.3 x10e3 /uL 1.4-7. 0 normal Not Available [facility] ([facility]) [address] [place], [address], 10/26/2024 18:07:27 10/23/19 25 10/24/2024 CBC WITH DIFFE RENTI AL/PL ATELE T lymphs (absolute) 1.4 x10e3 /uL 0.7-3. 1 normal Not Available [facility] ([facility]) [address] [place], [address], 10/26/2024 18:07:27 10/23/19 25 10/24/2024 CBC WITH DIFFE RENTI AL/PL ATELE T monocytes(ab solute) 0.7 x10e3 /uL 0.1-0. 9 normal Not Available [facility] ([facility]) [address] [facility], [place], [address], 10/26/2024 18:07:27 10/23/19 25 10/24/2024 CBC WITH DIFFE RENTI AL/PL ATELE T eos (absolute) 0.2 x10e3 /uL 0.0-0. 4 normal Not Available [facility] ([facility]) [address] [facility], [place], [address], 10/26/2024 18:07:27 10/23/19 25 10/24/2024 CBC WITH DIFFE RENTI AL/PL ATELE T baso (absolute) 0.0 x10e3 /uL 0.0-0. 2 normal Not Available [facility] ([facility]) [address] [facility], [place], [address], 10/26/2024 18:07:27 10/23/19 25 10/24/2024 CBC WITH DIFFE RENTI AL/PL ATELE T immature granulocytes 1 % not estab. Not Available [facility] ([facility]) [address] [facility], [place], [address], 10/26/2024 18:07:27 10/23/19 25 10/24/2024 CBC WITH DIFFE RENTI AL/PL ATELE T immature grans (abs) 0.1 x10e3 /uL 0.0-0. 1 Not Available [facility] ([facility]) [address] [facility], [place], [address], 10/26/2024 18:07:27 10/23/19 25 10/24/2024 CBC WITH DIFFE RENTI AL/PL ATELE T NRBC IRON POURER Not Available [facility] ([facility]) [address] [facility], [place], [address], 10/26/2024 18:07:27 10/23/19 25 10/24/2024 CBC WITH DIFFE RENTI AL/PL ATELE T hematology comments: IRON POURER Not Available [facility] ([facility]) [address] [facility], [place], [address], 10/26/2024 18:07:27 10/23/19 25 10/24/2024 COMP. METAB OLIC PANEL (14) glucose 86 mg/dL 70-99 normal Not Available [facility] ([facility]) [address] [place], [address], 10/26/2024 18:07:27 10/23/19 25 10/24/2024 COMP. METAB OLIC PANEL (14) BUN 10 mg/dL 6-20 normal Not Available [facility] ([facility]) [address] [facility], [place], [address], 10/26/2024 18:07:27 10/23/19 25 10/24/2024 COMP. METAB OLIC PANEL (14) creatinine 0.64 mg/dL 0.57-1 .00 normal Not Available [facility] ([facility]) [address] [place], [address], 10/26/2024 18:07:27 10/23/19 25 10/24/2024 COMP. METAB OLIC PANEL (14) eGFR 121 mL/mi n/1.7 3 >59 normal Not Available [facility] ([facility]) [address] [place], [address], 10/26/2024 18:07:27 10/23/19 25 10/24/2024 COMP. METAB OLIC PANEL (14) BUN/creatini ne ratio 16 9-23 normal Not Available [facility] ([facility]) [address] [place], [address], 10/26/2024 18:07:27 10/23/19 25 10/24/2024 COMP. METAB OLIC PANEL (14) sodium 136 mmol/ L 134-14 4 normal Not Available [facility] ([facility]) [address] [facility] [place], [address], 10/26/2024 18:07:27 10/23/19 25 10/24/2024 COMP. METAB OLIC PANEL (14) potassium 4.2 mmol/ L 3.5-5. 2 normal Not Available [facility] ([facility]) [address] [facility] [place], [address], 10/26/2024 18:07:27 10/23/19 25 10/24/2024 COMP. METAB OLIC PANEL (14) chloride 103 mmol/ L 96-106 normal Not Available [facility] ([facility]) [address] [facility] [place], [address], 10/26/2024 18:07:27 10/23/19 25 10/24/2024 COMP. METAB OLIC PANEL (14) carbon dioxide, total 20 mmol/ L 20-29 normal Not Available [facility] ([facility]) [address] [facility] [place], [address], 10/26/2024 18:07:27 10/23/19 25 10/24/2024 COMP. METAB OLIC PANEL (14) calcium 9.4 mg/dL 8.7-10 .2 normal Not Available [facility] ([facility]) [address] [facility] [place], [address], 10/26/2024 18:07:27 10/23/19 25 10/24/2024 COMP. METAB OLIC PANEL (14) protein, total 7.2 g/dL 6.0-8. 5 normal Not Available [facility] ([facility]) [address] [facility] [place], [address], 10/26/2024 18:07:27 10/23/19 25 10/24/2024 COMP. METAB OLIC PANEL (14) albumin 4.7 g/dL 3.9-4. 9 normal Not Available [facility] ([facility]) [address] [place], [address], 10/26/2024 18:07:27 10/23/19 25 10/24/2024 COMP. METAB OLIC PANEL (14) globulin, total 2.5 g/dL 1.5-4. 5 Not Available [facility] ([facility]) [address] [place], [address], 10/26/2024 18:07:27 10/23/19 25 10/24/2024 COMP. METAB OLIC PANEL (14) bilirubin, total 1.3 mg/dL 0.0-1. 2 above high normal Not Available [facility] ([facility]) [address] [place], [address], 10/26/2024 18:07:27 10/23/19 25 10/24/2024 COMP. METAB OLIC PANEL (14) alkaline phosphatase 69 IU/L 44-121 normal Not Available [facility] ([facility]) [address] [place], [address], 10/26/2024 18:07:27 10/23/19 25 10/24/2024 COMP. METAB OLIC PANEL (14) AST (SGOT) 19 IU/L 0-40 normal Not Available [facility] ([facility]) [address] [facility] [place], [address], 10/26/2024 18:07:27 10/23/19 25 10/24/2024 COMP. METAB OLIC PANEL (14) ALT (SGPT) 18 IU/L 0-32 normal Not Available [facility] ([facility]) [address] [facility] [place], [address], 10/26/2024 18:07:27 10/23/19 25 10/24/2024 LIPID PANEL cholesterol, total 174 mg/dL 100-19 9 normal Not Available [facility] ([facility]) [address] [facility] [place], [address], 10/26/2024 18:07:28 10/23/19 25 10/24/2024 LIPID PANEL triglyceride s 54 mg/dL 0-149 normal Not Available [facility] ([facility]) [address] [place], [address], 10/26/2024 18:07:28 10/23/19 25 10/24/2024 LIPID PANEL HDL cholesterol 58 mg/dL >39 normal Not Available [facility] ([facility]) [address] [place], [address], 10/26/2024 18:07:28 10/23/19 25 10/24/2024 LIPID PANEL VLDL cholesterol kat 11 mg/dL 5-40 Not Available [facility] ([facility]) [address] [place], [address], 10/26/2024 18:07:28 10/23/19 25 10/24/2024 LIPID PANEL LDL chol calc ([facility]) 105 mg/dL 0-99 above high normal Not Available [facility] ([facility]) [address] [place], [address], 10/26/2024 18:07:28 10/23/19 25 10/24/2024 LIPID PANEL LDL calc comment: IRON POURER Not Available [facility] ([facility]) [address] [place], [address], 10/26/2024 18:07:28 10/23/19 25 10/24/2024 HCV ANTIB ENRIQUETA CASCA DE(PC R/GEN O) HCV Ab Reacti ve non reacti ve abnormal Not Available [facility] ([facility]) [address] [place], [address], 10/26/2024 18:07:28 10/23/19 25 10/24/2024 HCV ANTIB ENRIQUETA CASCA DE(PC R/GEN O) test information: Commen t The quant itati ve range of this assay is 15 IU/mL to 100 lee on IU/mL . Not Available [facility] ([facility]) [address] [facility], [place], [address], 10/26/2024 18:07:28 10/23/19 25 10/26/2024 HCV ANTIB ENRIQUETA CASCA DE(PC R/GEN O) hepatitis C quantitation HCV Not Detect ed IU/mL Not Available [facility] ([facility]) [address] [place], [address], 10/26/2024 18:07:28 10/23/19 25 10/26/2024 HCV ANTIB ENRIQUETA CASCA DE(PC R/GEN O) HCV log10 IRON POURER Not Available [facility] ([facility]) [address] [facility], [place], [address], 10/26/2024 18:07:28 10/23/19 25 10/26/2024 HCV ANTIB ENRIQUETA CASCA DE(PC R/GEN O) interpretati on: Commen t Posit elian HCV antib enriqueta scree n witho ut the prese nce of HCV RNA is consi stent with a resol abraham past infec tion or a false posit elian HCV antib enriqueta. Consi rico repea t testi ng after one month . Not Available [facility] ([facility]) [address] [facility], [place], [address], 10/26/2024 18:07:28 10/23/19 25 10/26/2024 HCV ANTIB ENRIQUETA CASCA DE(PC R/GEN O) HCV genotype COMMEN T Not indic ated Not Available [facility] ([facility]) [address] [place], [address], 10/26/2024 18:07:28 10/23/19 25 10/24/2024 TSH TSH 1.440 uIU/m L 0.450- 4.500 normal Not Available [facility] ([facility]) [address] [place], [address], 10/26/2024 18:07:29 10/23/19 25 10/24/2024 VITAM IN D, 25-HY DROXY vitamin D, 25-hydroxy 17.0 NG/mL 30.0-1 00.0 below low normal Vitam in D defic iency has been defin ed by the Insti tute of Medic ine and an Endoc rine Socie ty pract ice guide line as a level of serum 25-OH vitam in D less than 20 ng/mL (1,2) . The Endoc rine Socie ty went on to furth er defin e vitam in D insuf ficie ncy as a level betwe en 21 and 29 ng/mL (2). 1. IOM (Inst itute of Medic ine). 2010. Edera ry refer ence christophe es for calci um and D. Carlene ann [place]: [facility] Press . 2. Marva ortiz [place], Chris downing [place], Araceli off-F errar i MOSES, et al. Evalu ation , treat ment, and preve ntion of vitam in D defic iency : an Endoc rine Socie ty clini kat pract ice guide line. JCEM. 2010; 96(7) :1911 -30. Not Available [facility] ([facility]) [address] [facility], [place], [address], 10/26/2024 18:07:29 10/23/19 25 10/24/2024 HIV AB/P2 4 AG WITH REFLE X HIV Ab/P24 Ag screen Non Reacti ve non reacti ve HIV-1 /HIV- 2 antib odies and HIV-1 p24 antig en were NOT detec drake. There is no labor atory evide nce of HIV infec tion. HIV Negat elian Not Available [facility] ([facility]) [address] [facility], [place], [address], 10/26/2024 18:07:30 Result Notes None recorded. Problems Name Problem SNOMED Code Status Onset Date Resolution Date Notes Provider Name and Address Organization Details Recorded Time Bipolar disorder 10446988 Active 024 MALIKA Beauchamp [address] [place] [address], [phone], [employer] 5 13:21:46 Post-traumat ic stress disorder 98375074 Active 024 MALIKA Beauchamp [address] [place] [address], [address] 8, [employer] 4 10:45:07 Allergic reaction 054007730 Active Yusuf MALIKA Beauchamp [address] [place] [address], [phone] 8, [employer] 5 17:15:21 Vitamin D deficiency 79740559 Active Yusuf Fide Guillen [address], [address], [employer] 5 08:45:01 Anxiety 66582414 Active Yusuf MALIKA Beauchamp [address] [place] [address], [address] 8, [employer] 5 12:56:06 Problem Notes None recorded. Procedures Surgical History Date Name Laterality Status Provider Name and Address Organization Details Recorded Time 3 Date of Last Pap Smear completed [employer] 10/23/2024 09:21:03 Tubal Ligation completed [employer] 07/31/2024 17:10:45 Gallbladder Surgery completed [employer] 07/31/2024 17:10:45 Imaging Results None recorded. Procedure Notes None recorded. Medical Equipment None Reported. Allergies No known drug allergies Medications Name Sig Start Date Stop Date Status Note LastModified by Organization Details LastModified Time buspirone 5 mg tablet TAKE 1 TABLET BY MOUTH THREE TIMES DAILY NEEDED FOR ANXIETY active Not Available Not Available No t Available sulfamethox azole 800 mg-trimetho prim 160 mg tablet TAKE 1 TABLET BY MOUTH EVERY 12 HOURS FOR 10 DAYS 10/23 completed Not Available Not Available Not Available amoxicillin 875 mg tablet TAKE 1 TABLET BY MOUTH EVERY 12 HOURS 10/23 completed Not Available Not Available Not Available oseltamivir 75 mg capsule TAKE 1 CAPSULE BY MOUTH EVERY 12 HOURS FOR 5 DAYS 07/31 completed Not Available Not Available Not Available prednisone 50 mg tablet TAKE 1 TABLET BY MOUTH ONCE DAILY FOR 5 DAYS 07/31 completed Not Available Not Available Not Available lidocaine 5 % topical patch APPLY ONE PATCH TOPICALLY TO CLEAN, DRY SKIN. LEAVE ON FOR UP TO 12 HOURS THEN REMOVE. MUST WAIT AT LEAST 12 HOURS BEFORE APPLYING PATCH(ES) AGAIN. 03/15 completed Not Available Not Available Not Available tenofovir disoproxil fumarate 300 mg tablet TAKE 1 TABLET BY MOUTH ONCE DAILY active Not Available Not Available No t Available ergocalcife rol (vitamin D2) 1,250 mcg (50,000 unit) capsule TAKE 1 CAPSULE BY MOUTH ONCE A WEEK active Not Available Not Available No t Available methylpredn isolone 4 mg tablets in a dose pack TAKE BY MOUTH DIRECTED ON INSIDE OF PACKAGE 10/23 completed Not Available Not Available Not Available cholecalcif maria de jesus (vitamin D3) 50 mcg (2,000 unit) tablet TAKE 1 TABLET BY MOUTH ONCE DAILY active Not Available Not Available No t Available Caplyta 42 mg capsule Take 1 capsule every day by oral route as directed for 30 days, for mood. 09/11 completed Not Available Not Available Not Available Caplyta 10.5 mg capsule Take 1 capsule every day by oral route as directed for 30 days, for mood. 04/08 completed Not Available Not Available Not Available Caplyta 21 mg capsule Take 1 capsule every day by oral route for 90 days. 2024 active Not Available Not Available Not Avai lable Vitals Date Recorded Body height Body mass index (BMI) Body weight Oxygen saturation Oxygen saturation in Arterial blood by Pulse oximetry Heart rate Systolic And Diastolic Provider Name and Address Organization Details Last Updated DateTime 5 172.72 cm 27.8 kg/m2 47065.6 9 g 97 % 97 % 78 /min 119/78 mm[Hg] [facility]. 5 14:32:55 Date Recorded Body height Body mass index (BMI) Body weight Body temperature Heart rate Oxygen saturation Oxygen saturation in Arterial blood by Pulse oximetry Systolic And Diastolic Provider Name and Address Organization Details Last Updated DateTime 5 172.72 cm 28.4 kg/m2 74231.7 7 g 98.2 [degF] 63 /min 96 % 96 % 115/67 mm[Hg] [employer]. 5 08:54:09 Date Recorded Body height Body mass index (BMI) Body weight Oxygen saturation Oxygen saturation in Arterial blood by Pulse oximetry Body temperature Heart rate Systolic And Diastolic Provider Name and Address Organization Details Last Updated DateTime 5 172.72 cm 26.9 kg/m2 78178.8 5 g 98 % 98 % 98 [degF] 58 /min 98/64 mm[Hg] [employer] 5 16:37:37 Date Recorded Body height Body mass index (BMI) Body weight Oxygen saturation Oxygen saturation in Arterial blood by Pulse oximetry Heart rate Body temperature Systolic And Diastolic Provider Name and Address Organization Details Last Updated DateTime 5 172.72 cm 27.2 kg/m2 46962.7 5 g 98 % 98 % 60 /min 98 [degF] 122/78 mm[Hg] [employer] 5 11:30:49 Date Recorded Body height Body mass index (BMI) Body weight Heart rate Oxygen saturation Oxygen saturation in Arterial blood by Pulse oximetry Systolic And Diastolic Provider Name and Address Organization Details Last Updated DateTime 4 172.72 cm 27.6 kg/m2 39653.3 2 g 70 /min 98 % 98 % 124/74 mm[Hg] [employer]. 4 14:34:49 Social History Question Answer Notes LastModified by Organizat ion Details LastModified Time Tobacco Smoking Status Former Smoker [employer]. 07/31/2024 17:10:45 Do You Have An Advance Directive? No Information not available 07/31/2024 Is Your Home Air Conditioned? Yes Information not available 07/31/2024 If You Are , What Was Your Level Of Alcohol Consumption Prior To ? None Information not available 07/31/2024 Do You Wear A Helmet When Biking? No Information not available 07/31/2024 Are You Blind Or Do You Have Difficulty Seeing? No Information not available 07/31/2024 What Is Your Level Of Caffeine Consumption? Heavy Information not available 07/31/2024 What Type Of News Commentator Do You Use? None Information not available 07/31/2024 Have You Been To An Area Known To Be High Risk For COVID-19? No Information not available 07/31/2024 Are You Deaf Or Do You Have Serious Difficulty Hearing? No Information not available 07/31/2024 What Type Of Diet Are You Following? REGULAR Information not available 07/31/2024 Which Illicit Or Recreational Drugs Have You Used? [place] Information not available 07/31/2024 What Is The Highest Grade Or Level Of School You Have Completed Or The Highest Degree You Have Received? [id number] Information not available 07/31/2024 How Many Days Of Moderate To Strenuous Exercise, Like A Brisk Walk, Did You Do In The Last 7 Days? 2 Information not available 07/31/2024 Have There Been Any Changes To Your Family Or Social Situation? No Information no t available 07/31/2024 When Did You Quit Smoking? 1-5yearssincelast cigarette Information not available 07/31/2024 Are There Any Guns Present In Your Home? No Information not available 07/31/2024 Which Of Your Hands Is Dominant? Right Information not available 07/31/2024 What Is Your Home Situation? Other Information not available 07/31/2024 How Many Years Have You Used Illicit Or Recreational Drugs? 15 Information not available 07/31/2024 Do You Have A Medical Power Of Section 8 Property Manager? No Information not available 07/31/2024 What Was The Date Of Your Most Recent Tobacco Screening? 05/06/2025 Information not available 05/06/2025 What Is Your Current Pack Years? 10packyears Information not available 07/31/2024 Do You Have Any Pets? Yes Information not available 07/31/2024 Do You Use Protection During Sex? No Information not available 07/31/2024 What Is Your Relationship Status? Information not available 07/31/2024 Have You Repeated Any Grades? Yes Information not available 07/31/2024 Do You Use Your Seat Belt Or Car Seat Routinely? No Information not available 07/31/2024 Are You Sexually Active? Yes Information not available 07/31/2024 Do You Have Any Siblings? 2 Information not available 07/31/2024 Do You Have Smoke And Carbon Monoxide Detectors In Your Home? Yes Information not available 07/31/2024 At What Age Did You Start Smoking Tobacco? 12 Information not available 07/31/2024 Are You Passively Exposed To Smoke? Yes Information no t available 07/31/2024 Are There Any Smokers In Your House? Yes Information not available 07/31/2024 How Much Tobacco Do You Smoke? No Information not available 07/31/2024 Do You Participate In Social Media? Yes Information not available 07/31/2024 Do You Use Sunscreen Routinely? Yes Information not available 07/31/2024 Has Tobacco Cessation Counseling Been Provided? Yes Information not available 07/31/2024 On What Date Was Tobacco Cessation Counseling Provided? 05/06/2025 Information not available 05/06/2025 How Many Years Have You Smoked Tobacco? 15 Information not available 07/31/2024 Have You Recently Traveled Abroad? No Information not available 07/31/2024 Do You Have Difficulty Walking Or Climbing Stairs? No Information not available 07/31/2024 Are You Currently In School? No Information not available 07/31/2024 What Contraceptive Method Was Reported At Start Of This Visit? Female Sterilization Information not available 07/31/2024 Do You Have Any Dietary Restrictions? No Information not available 07/31/2024 Sex: Female Functional Status Question Answer Note LastModified by Organizat ion Details LastModified Time Do you use any illicit or recreational drugs? Yes Information not available 07/31/2024 Do you or have you ever used any other forms of tobacco or nicotine? Yes Information not available 07/31/2024 What is your level of alcohol consumption? None Information not available 07/31/2024 Do you or have you ever used smokeless tobacco? Never used smokeless tobacco Information not available 07/31/2024 Are you currently employed? No Information not available 07/31/2024 Do you have transportation difficulties? No Information not available 07/31/2024 Are you able to walk independently without assistance or assistive devices? YESWOREST Information not available 07/31/2024 Do you have difficulty doing errands alone? No Information not available 07/31/2024 Are you able to care for yourself independently? Yes Information not available 07/31/2024 Do you have difficulty dressing, bathing, grooming, or toileting? No Information not available 07/31/2024 Do you or have you ever used e-cigarettes or vape? Current user of electronic cigarettes Information not available 07/31/2024 What is your exercise level? Occasional Information not available 07/31/2024 Mental Status Question Answer Note LastModified by Organizat ion Details LastModified Time Do you feel stressed (tense, restless, nervous, or anxious, or unable to sleep at night)? [id number] Information not available 07/31/2024 Do you have difficulty concentrating, remembering or making decisions? Yes Information no t available 07/31/2024 Are you or have you been involved with bullying? Yes Information not available 07/31/2024 Family History Relationship Description Onset Age of this Age Resolved Age Notes LastModified by Organization Details LastModified Time Brother Harmful pattern of use of alcohol Not available 2023 17:10:44 Brother Anxiety disorder Not available 2023 17:10:44 Brother Depressive disorder Not available 2023 17:10:44 Brother Bipolar disorder Not available 2023 17:15:08 Brother Schizophreni a Not available 2023 17:15:17 Father Harmful pattern of use of alcohol Not available 2023 17:10:44 Father Anxiety disorder Not available 2023 17:10:44 Father Depressive disorder Not available 2023 17:10:44 Father Hypertensive disorder Not available 2023 17:10:44 Paternal Grandmother Hypercholest erolemia Not available 2023 17:10:44 Paternal Grandmother Hypertensive disorder Not available 2023 17:10:44 Mother Harmful pattern of use of alcohol Not available 2023 17:10:44 Mother Anxiety disorder Not available 2023 17:10:44 Mother Depressive disorder Not available 2023 17:10:44 Mother Hypertensive disorder Not available 2023 17:10:44 Unspecified Relation Liver problem Not available 2023 17:10:44 Unspecified Relation Malignant neoplasm of cervix uteri Not available 17:10:44 Unspecified Relation Malignant neoplasm of lung Not available 2023 17:10:44 Unspecified Relation Malignant neoplasm of colon Not available 2023 17:10:44 Unspecified Relation Malignant neoplasm of ovary Not available 2023 17:10:44 Maternal Grandmother Hypercholest erolemia Not available 2023 17:10:44 Maternal Grandmother Hypertensive disorder Not available 2023 17:10:44 Maternal Grandmother Kidney disease Not available 2023 17:10:44 Maternal Grandfather Hypercholest erolemia Not available 2023 17:10:44 Maternal Grandfather Hypertensive disorder Not available 2023 17:10:44 Paternal Grandfather Hypercholest erolemia Not available 2023 17:10:44 Paternal Grandfather Hypertensive disorder Not available 2023 17:10:44 Paternal Grandfather Kidney disease Not available 2023 17:10:44 Medical History Condition Response Coronary Artery Disease N Gout N Other N Blood Diseases N Kidney Stones N Hyperthyroidism N Breast Cancer N Blood Transfusion N Emergency room visit since last appointm ent. N Hypothyroidism N Lung Disease N Dermatologic Disorders N Depression Y COPD N Defects or Inherited Disease N Developmental or Behavioral Disorders N Breast Problem N Difficulty Swallowing N Anesthesia Complications N History of STI N Meniere's disease N Anxiety Disorder Y Muscle, Joint, or Bone Problems N Autoimmune disease N Vision or Eye Problems N Arthritis N Polyps N Infertility N Mental Disorder N Congenital Anomalies N Acid Reflux (GERD) N Cancer N Stroke N Neurologic/Epilepsy N Endometriosis N Bladder or Kidney Problems N High Cholesterol N Liver Disease N Organ Transplant N Psychiatric/Mental Health Condition N Fibromyalgia N Dialysis N Schizophrenia N Headaches N Kidney Disease N Allergies/Hayfever N Heart Problems N Ear or Hearing Problems N Hospitalizations N Learning Disorder N Artificial Joints N Thyroid Problems N GI Problems N Acne N ADD/ADHD N Eating Disorder N Anemia N Constipation N Mental Illness N Ovarian Cancer N Diabetes N Bedwetting N Hepatitis/Liver Disease N Tuberculosis N Eczema N Diverticulitis N Abuse/Domestic Violence N Asthma N Trauma/Violence N Substance Abuse N Reflux/GERD N Depression/ depression N Hepatitis Y Heart Disease N Pulmonary Embolism N Tourette Syndrome N Chronic Ear Infections N Pre-Eclampsia N Hypertension N Chicken Pox N Autism Spectrum Disorder (ASD) N Osteoporosis N Thrombophilias N Gynecological History Statement/Question Response Abnormal Pap N Flow Moderate Date of LMP 05/04/2025 HPV Vaccine Y Duration of Flow (days) 5 Most Recent Mammogram Age at Menarche 11 Current Control Method Tubal Ligat ion Age at First Child 19 Frequency of Cycle (Q days) 26 Sexually Active? Y Menses Monthly Y Date of Last Pap Smear 10/31/2022 LMP Approximate Obstetrics History GPAL:G 2 P 2 0 0 2 Type Value Multiple Births 0 Full Term 2 Induced 0 Spontaneous 0 Premature 0 Living 2 Ectopics 0 Total 2 Immunizations Vaccine Type Date Status Note Provider Nam e and Address Organization Details Recorded Time Tdap 6 completed MALIKA Beauchamp [address] [place] [address], [phone], [employer] 08/04/2024 10:44:16 MMR 7 completed Lucia medel [employer] 08/18/2024 14:31:51 Tdap 1 completed Lucia medel [employer] 08/18/2024 14:31:51 OPV, trivalent 7 completed Lucia Purcell null, [employer] 08/18/2024 14:31:51 Influenza, split virus, trivalent, preservative 9 completed Lucia Purcell null, [employer] 08/18/2024 14:31:51 HPV, quadrivalent 1 completed Lucia Purcell null, [employer] 08/18/2024 14:31:51 HPV, quadrivalent 1 completed Lucia Purcell null, [employer] 08/18/2024 14:31:51 HPV, quadrivalent 2 completed Lucia Purcell null, [employer] 08/18/2024 14:31:51 Td (adult), 2 Lf tetanus toxoid, preservative free, adsorbed 5 completed Legend3D null, [employer] 08/18/2024 14:31:51 Hep A, adult 9 completed Lucia Purcell null, [employer] 08/18/2024 14:31:51 DTaP, unspecified formulation 7 completed [employer] null, [employer] 08/18/2024 14:31:51 meningococcal MCV4, unspecified formulation 1 completed [employer] null, [employer] 08/18/2024 14:31:51 Tdap 5 completed [facility] 11:27:02 Past Encounters Encounter ID Performer Location Encounter Start Date Encounter Closed Date Diagnosis/Indication Diagnosis SNOMED-CT Code Diagnosis ICD10 Code Diagnosis IMO Codes Diagnosis Note [id number] MALIKA Beauchamp [facility] [address] [place] [address] 07/31/2024 17:00:35 07/31/2024 17:40:00 Bipolar disorder 58634362 F31.9 Trial Caplyta - samples given for slow titration. Return to clinic in about 10 days to re-evaluat e Post-traum atic stress disorder 96558551 F43.10 Counseling 287918696 Z71 .9 Body mass index 25-29 - overweight 828906193 Z68.27 [id number] MALIKA Beauchamp [facility] [address] [place] [address] 08/18/2024 14:27:17 08/18/2024 15:04:13 Bipolar disorder 21762434 F31.9 Filled out patient assistance applicatio n for caplyta [id number] MALIKA Beauchamp [address] [address] 09/11/2024 14:26:21 09/11/2024 14:50:05 Bipolar disorder 40023510 F31.9 Given 90 days of Caplyta 10.5 from patient assistance programRTC 90 days, but call if need to be seen sooner [id number] MALIKA Beauchamp [facility] [address] [place] [address] 10/23/2024 08:35:17 10/23/2024 09:41:14 Adult health examination 692284754 Z00.00 HIV screening 668116756 Z11.4 Hepatitis C screening 41 0788205 Z11.59 Bipolar disorder 4083665 4 F31.9 Allergic reaction 097026 005 T78.40XA Mostly resolved at this time [id number] MALIKA Beauchamp [facility] [address] [place] [address] 03/15/2025 16:25:37 03/15/2025 16:50:05 Bipolar disorder 18204336 F31.9 Increase Caplyta 21 mg daily - samples given [id number] MAILKA Beauchamp [address] [address] 05/06/2025 11:26:11 05/06/2025 11:50:07 Bipolar disorder 05877818 F31.0 4488505 Continue Caplyta 21 mg - patient given meds that were shipped from [facility] 84468374 F41.9 49944 Health Concerns Section Related Observation LastModified by Organization Detai ls LastModified Time None Recorded Concern Status LastModified by Organization Details LastModified Time None Recorded Advance Directives Directive N: Payers Insurance Date Sequence Insurance Name Policy Number Policy Coe Covered Member ID Coe Member ID Guarantor Name 01/21/2025 PAYMENT PLAN Lu Merlos 09/11/2024 SLIDING FEE SCHEDULE - DISCOUNT Lu Merlos 07/31/2024 1 *SELF PAY* Alexis Merlos 03/15/2025 1 *SELF PAY* Alexis Merlos 06/14/2025 1 [facility] [id number] Lu Merlos [id number] Lu Merlos Notes Date Note Type Note Provider Name and Address Organization Details Recorded Time 08/18/2024 text/html Patient presents for followup. Started Caplyta a few weeks ago. STates she is doing extremely well. Feels better than she has felt in a very long time. Denies side effects. MALIKA Beauchamp [address] [place], [address], [employer] 08/18/2024 16:00:50 09/11/2024 text/html Patient presents for followup. History of bipolar disorder. Taking Caplyta 10.5 mg daily and doing very well. We were able to get her prescription thru the patient assistance program as well. MAILKA Beauchamp [address] [place], [address], [employer] 09/11/2024 15:09:04 10/23/2024 text/html ROS as noted in the [facility] Patient presents for followup. Seen last week at ER for rash on chest and face. Thought it might be allergic reaction, but unclear as to what. It is mostly resolved. MALIKA Beauchamp [address] [place], [address], [employer] 10/23/2024 17:16:06 03/15/2025 text/html ROS as noted in the [facility] Patient presents for followup. Taking Caplyta. Was doing well on 10.5, but doesn't feel like it is working as well anymore. MALIKA Beauchamp [address] [place], [address], [place] [employer] 03/15/2025 17:09:35 05/06/2025 text/html ROS as noted in the HPI Patient presents for followup. Doing well with Caplyta. States it has significantly helped her mood. Does wonder if there is anythign she can take for anxiety. Was on something 9-10 years ago but really can't remember what. MALIKA Beauchamp [address] [place] [address], [place], [address], [employer] 05/06/2025 13:00:03 OBGyn Episode No OBEpisode recorded.
--- OUTSIDE RECORDS SUMMARY | 2025-06-15 22:42 | XMS_ITS | Encounter Summary ---
Author Organization [employer] ([place], [place], [place], [place]) Address [address] [place] [address] Care Team Providers Care Carbon Grinder Name Role Phone Jw Askew MD Primary Care Provider + [phone] Darcy Jamison PA-C Unavailable [phone] Encounter Details Date Type Department Care Team (Late st Contact Info) Description 12/22/2020 Transcribed Document [facility] Family Medicine [address] [place] [address] ProviderCandi MD [address] [place], [place] [id number] Social History Tobacco Use Types Packs/Day Years Used Date Smoking Tobacco: Never Assessed Comments Unknown Sex and Gender Information Value Date Recorded Sex Assigned at Not on file Legal Sex Female 7:01 PM CDT Gender Identity Not on file Sexual Orientation Not on file documented as of this encounter Miscellaneous Notes * Cerner Conversion Note - Candi ProviderMD - 12/22/2020 2:00 PM CDT [facility] Endo PreOp Summary Primary Physician: GABRIELA FIERRO MD-GAE Finalized Date/Time: 12/22/20 14:08:16 Pt. Name: VARINDER INMAN JAYLON /Sex: 1995 Female Med Rec #: [id number] Physician: GABRIELA FIERRO MD-GAE Financial #: [id number] Pt. Type: O Room/Bed: END/ Admit/Disch: 12/22/20 13:07:00 - Institution: [facility] Endo PreOp Case Times Entry 1 In Preop 12/22/20 13:20:00 Ready for Holding n/a Room Patient Ready for n/a Surgery Patient Out of Preop 12/22/20 14:08:00 Patient Out of n/a Holding Room Last Modified By: Milka Mathew RN-PATIENT CARE BEDSIDE NON-EXEMPT 12/22/20 14:08:13 [facility] Endo PreOp Case Times Audit 12/22/20 14:08:13 [place] Floor Desk Clerk: CAROLE Modifier: WALEADAVIS <+> 1 Patient Out of Preop Finalized By: Milka Mathew RN-PATIENT CARE BEDSIDE NON-EXEMPT Document Signatures Signed By: Milka Mathew RN-PATIENT CARE BEDSIDE NON-EXEMPT 12/22/20 14:08 Electronically signed by Bre [facility] Conversion Brand Strategy Manager [employer] at 12/27/2022 6:35 PM CDT documented in this encounter Plan of Treatment Upcoming Encounters Date Type Department Care Team (Late st Contact Info) Description 08/11/2025 2:45 PM EST Office Visit [facility] Gastroenterology [address] [facility] [address] [place] [phone] Gabriela Fierro MD [address] [facility] [address] [place] [address] documented as of this encounter Visit Diagnoses Not on filedocumented in this encounter Care Teams Carbon Grinder Relationship Specialty Start Date End Date Jw Askew MD [address] [place] [address] PCP - General Adolescent Medicine 09/05/22 Darcy Jamison PA-C [address] [place] [address] Gastroenterology 11/18/24 documented as of this encounter
--- OUTSIDE RECORDS SUMMARY | 2025-06-15 22:42 | XMS_ITS | Encounter Summary ---
Author Organization [employer] ([place], [place], [place], [place]) Address [address] [place] [address] Care Team Providers Care Oracle Soa Architect Name Role Phone Jw Askew MD Primary Care Provider + [phone] Darcy Jamison PA-C Unavailable [phone] Encounter Details Date Type Department Care Team (Late st Contact Info) Description 12/22/2020 Transcribed Document [facility] [place] [address] [place] [address] ProviderCandi MD [address] [place], [place] [phone] Social History Tobacco Use Types Packs/Day Years [...] Source : Stated Height Entry Format : [place] Height, Feet : 5 ft(Converted to: 152 cm, 60 Inch) Height, Inches : 8 Inch(Converted to: 0 ft 8 Inch, 20.32 cm) Clinical Height : 172.72 cm Weight Source : Standing scale Weight Entry Format : [place] Clinical Dosing Weight : 75.45 kg Weight, Pounds : 166 lb Body Surface Area (BSA) : 1.89 m2 Body Mass Index : 25.3 kg/m2 (HI) Meno Body Weight : 63 kg Milka Mathew RN-PATIENT CARE [facility] NON-EXEMPT - 12/22/2020 13:33 EDT Health Histories Smoking Status : Former smoker, quit more than 30 days ago Smokeless Tobacco Status : Never Milka Mathew RN-PATIENT CARE [facility] NON-EXEMPT - 12/22/2020 13:33 EDT Social History [...] Symptoms : None Milka Mathew RN-PATIENT CARE [facility] NON-EXEMPT - 12/22/2020 13:33 EDT COVID19 PreProcedure Screening Is this an Emergent or Add on Procedure? : No Date PreProcedure COVID-19 test known? : Yes Date of PreProcedure COVID-19 : 12/20/2020 EDT Has patient been isolated since the test : Yes Exposed to COVID19 symptoms since test? : No Milka Mathew RN-PATIENT CARE [facility] NON-EXEMPT - 12/22/2020 13:33 EDT Anesthesia/Transfusion History Family History of Anesthesia Reaction : No prior transfusion(s) Transfusion History : Prior anesthesia without reaction Family History of Anesthesia Reaction : None Milka Mathew RN-PATIENT CARE [facility] NON-EXEMPT - 12/22/2020 13:33 EDT Functional Assessment Living Situation : Home Current Home Treatments : None Milka Mathew RN-PATIENT CARE [facility] NON-EXEMPT - 12/22/2020 13:33 EDT Rosalie Suicide Severity Rating Scale (C-SSRS) CSSRS Past [...] #2 Relationship : - Primary Language : Bruneian Preferred Communication Mode : Verbal Communication Barrier : None Rx Specialist Needed : No Milka Mathew RN-PATIENT CARE [...] apparent problem Vel Score : 23 Milka Mathwe RN-PATIENT CARE [facility]SIDE NON-EXEMPT - 12/22/2020 13:33 [...] Scale Risk Level : 25-45 Medium Risk [place] Fall Interventions : Adequate lighting, Bed in [...] CARE BEDSIDE NON-EXEMPT - 12/22/2020 13:33 EDT Electronically signed by Bre [facility] Conversion Kitchen Help Handyman Cerner at 12/27/2022 6:51 PM CDT documented in this encounter Plan of Treatment Upcoming Encounters Date Type Department Care Team (Late st Contact Info) Description 08/11/2025 2:45 PM EST Office Visit [facility] Gastroenterology [address] [facility] [address] [place] [phone] Kimberley Fierro MD [address] [facility] [address] [place], [place] [phone] documented as of this encounter Visit Diagnoses Not on filedocumented in this encounter Care Teams Oracle Soa Architect Relationship Specialty Start Date End Date Jw Askew MD [address] [place] [address] PCP - General Adolescent Medicine 09/05/22 Darcy Jamison PA-C [address] [place] [address] Gastroenterology 11/18/24 documented as of this encounter
--- OUTSIDE RECORDS SUMMARY | 2025-06-15 22:42 | XMS_ITS | Encounter Summary ---
Author Organization [employer] ([place], [place], [place], [place]) Address [address] [place] [address] Care Team Providers Care Mechanics Handyman Name Role Phone Jw Askew MD Primary Care Provider + [phone] Daryc Jamison PA-C Unavailable [phone] Reason for Visit * Reason Comments Medication Refill Encounter Details Date Type Department Care Team (Late st Contact Info) Description 05/09/2025 Refill [facility] Gastroenterology [address] [facility] [address] [place] [phone] Kimberley Fierro MD [address] [facility] [address] [place], [place] [phone] Chronic viral hepatitis B without delta agent [...] Date Gustavo rded Speak language other than Cameroonian at home Not on file 09/19/2023 Want [...] Description 08/11/2025 2:45 PM EST Office Visit [facility] Gastroenterology [address] [facility] [address] [place] [address] Kimberley Fierro MD [address] [facility] [address] [place] [phone] documented as of this encounter Visit Diagnoses Diagnosis Chronic viral hepatitis B without delta agent and without coma (HCC) documented in this encounter Care Teams Mechanics Handyman Relationship Specialty Start Date End Date Jw Askew MD [address] [place] [address] PCP - General Adolescent Medicine 09/05/22 Darcy Jamison PA-C [address] [place] [address] Gastroenterology 11/18/24 documented as of this encounter
--- OUTSIDE RECORDS SUMMARY | 2025-06-15 22:42 | XMS_ITS | Encounter Summary ---
Author Organization [employer] ([place], [place], [place], [place]) Address [address] [place] [address] Care Team Providers Care Rails Developer Name Role Phone Jw Askew MD Primary Care Provider + [phone] Darcy Jamison PA-C Unavailable [phone] Encounter Details Date Type Department Care Team (Late st Contact Info) Description 12/22/2020 Transcribed Document [facility] Family Medicine [address] [place] [address] Candi Bonilla MD [address] [place], [place] [address] Social History Tobacco Use Types Packs/Day Years [...] activities are safe for you. ??? Take sjxl-nng-sunyekz and prescription medicines only as told by [...] provider. Document Revised: 08/29/2018 Document Reviewed: 04/11/2018 [employer] Patient Education ? 2020 [employer]. Endoscopic Retrograde Cholangiopancreatogram, Care After This sheet [...] Follow these instructions at home: ??? Take [id number]-deqxpjp and prescription medicines only as told by [...] provider. Document Revised: 08/08/2018 Document Reviewed: 07/15/2017 [employer] Patient Education ? 2020 [employer] documented in this encounter Plan of Treatment Upcoming Encounters Date Type Department Care Team (Late st Contact Info) Description 08/11/2025 2:45 PM EST Office Visit [facility] Gastroenterology [address] [facility] [address] [place] [address] Kimberley Fierro MD [address] [facility] [address] [place] [address] documented as of this encounter Visit Diagnoses Not on filedocumented in this encounter Care Teams Rails Developer Relationship Specialty Start Date End Date Jw Askew MD [address] [place], [place] [address] PCP - General Adolescent Medicine 09/05/22 Darcy Jamison PA-C [address] [place] [address] Gastroenterology 11/18/24 documented as of this encounter
--- OUTSIDE RECORDS SUMMARY | 2025-06-15 22:42 | XMS_ITS | Encounter Summary ---
Author Organization [employer] ([place], [place], [place], [place]) Address [address] [place] [address] Care Team Providers Care Lead Mobile Developer Name Role Phone Jw Askew MD Primary Care Provider + [phone] Darcy Jamison PA-C Unavailable [phone] Encounter Details Date Type Department Care Team (Late st Contact Info) Description 12/22/2020 Transcribed Document [facility] Family Medicine [address] [place] [address] ProviderCandi MD [address], [place] [id number] Social History Tobacco Use Types Packs/Day Years Used Date Smoking Tobacco: Never Assessed Comments Unknown Sex and Gender Information Value Date Recorded Sex Assigned at Not on file Legal Sex Female 7:01 PM CDT Gender Identity Not on file Sexual Orientation Not on file documented as of this encounter Miscellaneous Notes * Cerner Conversion Note - Candi ProviderMD - 12/22/2020 3:15 PM CDT [facility] Endo PACU Summary Primary Physician: GABRIELA FIERRO MD-GAE Finalized Date/Time: 12/22/20 16:44:33 Pt. Name: STORM VARINDER JAYLON /Sex: 1995 Female Med Rec #: [id number] Physician: GABRIELA FIERRO MD-GAE Financial #: [id number] Pt. Type: O Room/Bed: END/ Admit/Disch: 12/22/20 13:07:00 - Institution: [facility] Endo PACU Case Times Entry 1 In PACU I 12/22/20 16:00:00 Ready for PACU 12/22/20 16:44:00 Discharge Discharge from PACU 12/22/20 16:44:00 I Last Modified By: Lucia Portillo, RUFUS 12/22/20 16:44:31 [facility] Endo PACU Case Times Audit 12/22/20 16:44:31 Therapeutic Consultant: [id number] Modifier: [id number] <+> 1 Ready for PACU Discharge <+> 1 Discharge from PACU I Finalized By: Lucia Portillo, RN Document Signatures Signed By: Lucia Portillo RN 12/22/20 16:44 Electronically signed by [facility] Conversion Duplicating Machine Mechanic Cerner at 12/27/2022 6:37 PM CDT documented in this encounter Plan of Treatment Upcoming Encounters Date Type Department Care Team (Late st Contact Info) Description 08/11/2025 2:45 PM EST Office Visit [facility] Gastroenterology [address] [facility] [address] [place], [place] [id number] Gabriela Fierro MD [address] [facility] [address] [place] [address] documented as of this encounter Visit Diagnoses Not on filedocumented in this encounter Care Teams Lead Mobile Developer Relationship Specialty Start Date End Date Jw Askew MD [address] [place] [address] PCP - General Adolescent Medicine 09/05/22 Darcy Jamison PA-C [address] [place] [address] Gastroenterology 11/18/24 documented as of this encounter
--- OUTSIDE RECORDS SUMMARY | 2025-06-15 22:42 | XMS_ITS | Continuity of Care Document ---
Author Organization [employer], [facility] Address [address] [place] [address] Assessment No assessment recorded. Plan of Treatment Reminders Order Date Submit Date Provider Last Modified By Organization Details Last Modified Time Details Appointments FOLLOW UP 30 2024 11:30A M Fide Guillen PA-C Not available Not available Not available Lab None recorded. Referral None recorded. Procedures None recorded. Surgeries None recorded. Imaging None recorded. Medication Orders buspirone 5 mg tablet 2024 025 [facility], [address], [address], 05/06/2025 12:56:50 Patient TargetsNo targets recorded. Patient Instructions Encounter Date Encounter Id Patient Instructions Last Modified By Organization Details Last Modified Time 05/06/2025 [id number] bipolar disorder : care instructions [email or web address] Not available 05/06/2025 12:56:44 learning about mood disorders [email or web address] Not available 05/06/2025 12:56:44 Reason for Referral None Reported. Problems Name Problem SNOMED Code Status Onset Date Resolution Date Notes Provider Name and Address Organization Details Recorded Time Bipolar disorder 87555552 Active 024 MALIKA Beauchamp [address] [place] [address], [phone] 8, [employer] 13:21:46 Post-traumat ic stress disorder 56490298 Active 024 MALIKA Beauchamp [address] [place] [address], [address] 8, [employer] 4 10:45:07 Allergic reaction 147247905 Active Yusuf MALIKA Beauchamp [address] [place] [address], [address] 8, [employer] 5 17:15:21 Vitamin D deficiency 00719457 Active Yusuf Elizalde MALIKA Guillen [address] [place] [address], [address] 8, [employer] 5 08:45:01 Anxiety 27763613 Active Yusuf Elizalde MALIKA Guillen [address] [place] [address], [address] 8, [employer] 5 12:56:06 Problem Notes None recorded. Procedures Surgical History Date Name Laterality Status Provider Name and Address Organization Details Recorded Time 3 Date of Last Pap Smear completed [employer]. 10/23/2024 09:21:03 Tubal Ligation completed [employer] 07/31/2024 17:10:45 Gallbladder Surgery completed [employer] 07/31/2024 17:10:45 Imaging Results None recorded. Procedure [...] Updated DateTime 5 172.72 cm 27.2 kg/m2 51536.7 5 g 98 % 98 % 60 /min 98 [degF] 122/78 mm[Hg] [employer] 5 11:30:49 Social History Question Answer Notes LastModified by Organizat ion Details LastModified Time Tobacco Smoking Status Former Smoker [employer] [facility] 07/31/2024 17:10:45 Do You Have An Advance [...] Information not available 07/31/2024 What Type Of Milling Operator Do You Use? None Information not available 07/31/2024 Have You Been To An Area Known To Be High Risk For COVID-19? No Information not available 07/31/2024 Are You Deaf Or Do You Have Serious Difficulty Hearing? No Information not available 07/31/2024 What Type Of Diet Are You Following? REGULAR Information not available 07/31/2024 Which Illicit Or Recreational Drugs Have You Used? Grady Information not available 07/31/2024 What Is The Highest Grade Or Level Of School You Have Completed Or The Highest Degree You Have Received? [id number] Information not available 07/31/2024 How Many Days [...] Do You Have A Medical Power Of Senior Windows Engineer? No Information not available 07/31/2024 What Was [...] anxious, or unable to sleep at night)? [id number] Information not available 07/31/2024 Do you have [...] Artery Disease N Gout N Other N Kidney Stones N Blood Diseases N Hyperthyroidism N Breast Cancer N Blood Transfusion N Emergency room visit since last appointm ent. N Lung Disease N COPD N Depression Y Hypothyroidism N Dermatologic Disorders N Defects or Inherited Disease N Developmental or Behavioral Disorders N Breast Problem N Difficulty Swallowing N Anesthesia Complications N History of STI N Anxiety Disorder Y Meniere's disease N Autoimmune disease N Muscle, Joint, or Bone Problems N Vision or Eye Problems N Arthritis N Infertility N Polyps N Mental Disorder N Congenital Anomalies N Acid Reflux (GERD) N Cancer N Stroke N Neurologic/Epilepsy N Endometriosis N Bladder or Kidney Problems N High Cholesterol N Liver Disease N Organ Transplant N Psychiatric/Mental Health Condition N Dialysis N Headaches N Fibromyalgia N Schizophrenia N Kidney Disease N Allergies/Hayfever N Heart Problems N Ear or Hearing Problems N Hospitalizations N Learning Disorder N Artificial Joints N Thyroid Problems N GI Problems N Acne N ADD/ADHD N Eating Disorder N Anemia N Constipation N Mental Illness N Diabetes N Ovarian Cancer N Bedwetting N Hepatitis/Liver Disease N Tuberculosis N Eczema N Abuse/Domestic Violence N Diverticulitis N Asthma N Trauma/Violence N Substance Abuse [...] Immunizations Vaccine Type Date Status Note Provider Johnny bowers and Address Organization Details Recorded Time Tdap 6 completed MALIKA Beauchamp [address] [place] [address], [address], [employer] 08/04/2024 10:44:16 MMR 7 completed Lucia medel [employer] 08/18/2024 14:31:51 Tdap 1 completed Lucia Purcell null, [employer] 08/18/2024 14:31:51 OPV, trivalent 7 completed Lucia Purcell null, [employer] 08/18/2024 14:31:51 Influenza, split virus, trivalent, preservative 9 completed Lucia Purcell null, [employer] 08/18/2024 14:31:51 HPV, quadrivalent 1 completed Lucia Purcell null, [employer] 08/18/2024 14:31:51 HPV, quadrivalent 1 completed Lucia Purcell null, [employer] 08/18/2024 14:31:51 HPV, quadrivalent 2 completed Lucia Purcell null, [employer] 08/18/2024 14:31:51 Td (adult), 2 Lf tetanus toxoid, preservative free, adsorbed 5 completed Lucia Purcell null, [employer] 08/18/2024 14:31:51 Hep A, adult 9 completed Lucia Purcell null, [employer] 08/18/2024 14:31:51 DTaP, unspecified formulation 7 completed Lucia Purcell null, [employer] 08/18/2024 14:31:51 meningococcal MCV4, unspecified formulation 1 completed Lucia Purcell null, [employer] 08/18/2024 14:31:51 Tdap 5 completed Not Available [facility] 05/06/2025 11:27:02 Past Encounters Encounter ID Performer Location Encounter Start Date Encounter Closed Date Diagnosis/Indication Diagnosis SNOMED-CT Code Diagnosis ICD10 Code Diagnosis IMO Codes Diagnosis Note [id number] MALIKA Beauchamp [facility] [address] [place] [address] 05/06/2025 11:26:11 05/06/2025 11:50:07 Bipolar disorder 14425538 F31.0 7989301 Continue Caplyta 21 mg - patient given meds that were shipped from [facility] Anxiety 17171473 F41.9 75662 Health Concerns Section Related Observation LastModified by Organization Detai ls LastModified Time None Recorded Concern Status LastModified by Organization Details LastModified Time None Recorded Payers Encounter Date Sequence Insurance Name Policy Number Policy Coe Covered Member ID Coe Member ID Guarantor Name 05/06/2025 1 [facility] [id number] Lu Merlos [id number] Lu Merlos Notes Date Note Type Note Provider Name and Address Organization Details Recorded Time 05/06/2025 text/html ROS as noted in the HPI Patient presents for followup. Doing well with Caplyta. States it has significantly helped her mood. Does wonder if there is anythign she can take for anxiety. Was on something 9-10 years ago but really can't remember what. MALIKA Beauchamp [address] [place] [address], [place], [address], [facility] [employer] 05/06/2025 13:00:03 OBGyn Episode No OBEpisode recorded.
--- OUTSIDE RECORDS SUMMARY | 2025-06-15 22:42 | XMS_ITS | Encounter Summary ---
Author Organization [employer] ([place], [place], [place], [place]) Address [address] [place] [address] Care Team Providers Care Agriculture Instructor Name Role Phone Jw Askew MD Primary Care Provider + [phone] Darcy Jamison PA-C Unavailable [phone] Encounter Details Date Type Department Care Team (Late st Contact Info) Description 12/22/2020 Transcribed Document [facility] [place] [address] [place] [address] ProviderCandi MD [address], [place] [id number] Social History Tobacco Use Types Packs/Day Years Used Date Smoking Tobacco: Never Assessed Comments Unknown Sex and Gender Information Value Date Recorded Sex Assigned at Not on file Legal Sex Female 7:01 PM CDT Gender Identity Not on file Sexual Orientation Not on file documented as of this encounter Miscellaneous Notes * Cerner Conversion Note - Candi ProviderMD - 12/22/2020 3:15 PM CDT [facility] Endo IntraOp Summary Primary Physician: KIMBERLEY FIERRO MD-GAE Finalized Date/Time: 12/22/20 16:10:47 Pt. Name: LU INMAN JAYLON /Sex: 1995 Female Med Rec #: [id number] Physician: KIMBERLEY FIERRO MD-GAE Financial #: [id number] Pt. Type: O Room/Bed: END/ Admit/Disch: 12/22/20 13:07:00 - Institution: [facility] Endo - Case Attendance Entry 1 Entry 2 Entry 3 Case Attendee KIMBERLEY FIERRO MD-SILVANO WYMAN, MATTHEW KIRK NA Role Performed Surgeon/Proceduralist, Anesthesiologist of BANDER AND CELLOPHANER MACHINE HELPER/Nurse Elastic Attacher Chainstitch First Record Time In 12/22/20 15:13:00 12/22/20 [...] Danitza Briones, MATTHEW Garcia RN FUGATE, NATHAN, FARM MARKETER Role Performed Theoretical Physicist, First Theoretical Physicist, Second Scrub, First Time In 12/22/20 14:39:00 [...] Rn 12/22/20 15:46:29 12/22/20 15:46:29 12/22/20 15:46:29 [facility] Endo - Case Attendance Audit 12/22/20 15:46:29 Ice Puller: [id number] Modifier: [id number] 1 <*> Procedure Endoretrogradecholangiopancreatography, Sphincterotomy, Biliary Duct [...] Sweep, Biliary Duct Stone Extraction 12/22/20 15:45:59 Ice Puller: [id number] Modifier: [id number] 1 <*> Procedure Endoretrogradecholangiopancreatography, Sphincterotomy, Biliary Duct [...] Extraction, Pancreatic Duct Stent Placement 12/22/20 15:45:24 Ice Puller: [id number] Modifier: [id number] 1 <+> Time Out 1 <*> Procedure [...] Extraction, Pancreatic Duct Stent Placement 12/22/20 15:42:27 Ice Puller: [id number] Modifier: [id number] 1 <*> Procedure Endoretrogradecholangiopancreatography, Sphincterotomy, Biliary Duct [...] Sweep, Biliary Duct Stone Extraction 12/22/20 15:42:13 Ice Puller: [id number] Modifier: [id number] 1 <*> Procedure Endoretrogradecholangiopancreatography, Sphincterotomy, Biliary Duct [...] Extraction, Biliary Duct Stent Placement 12/22/20 15:40:51 Ice Puller: [id number] Modifier: [id number] 1 <*> Procedure Endoretrogradecholangiopancreatography, Sphincterotomy, Biliary Duct [...] Sweep, Biliary Duct Stone Extraction 12/22/20 15:33:37 Ice Puller: [id number] Modifier: [id number] 1 <*> Procedure Endoretrogradecholangiopancreatography, Sphincterotomy, Biliary Duct Balloon Sweep 2 <*> Procedure Endoretrogradecholangiopancreatography, Sphincterotomy, Biliary Duct Balloon Sweep 3 <*> Procedure Endoretrogradecholangiopancreatography, Sphincterotomy, Biliary Duct Balloon Sweep 4 <*> Procedure Endoretrogradecholangiopancreatography, Sphincterotomy, Biliary Duct Balloon Sweep 5 <*> Procedure Endoretrogradecholangiopancreatography, Sphincterotomy, Biliary Duct Balloon Sweep 6 <*> Procedure Endoretrogradecholangiopancreatography, Sphincterotomy, Biliary Duct Balloon Sweep 12/22/20 15:27:25 Ice Puller: [id number] Modifier: [id number] 1 <*> Procedure Endoretrogradecholangiopancreatography, Sphincterotomy 2 <*> Procedure Endoretrogradecholangiopancreatography, Sphincterotomy 3 <*> Procedure Endoretrogradecholangiopancreatography, Sphincterotomy 4 <*> Procedure Endoretrogradecholangiopancreatography, Sphincterotomy 5 <*> Procedure Endoretrogradecholangiopancreatography, Sphincterotomy 6 <*> Procedure Endoretrogradecholangiopancreatography, Sphincterotomy 12/22/20 15:25:12 Ice Puller: [id number] Modifier: [id number] 1 <*> Procedure Endoretrogradecholangiopancreatography 2 <*> Procedure Endoretrogradecholangiopancreatography 3 <*> Procedure Endoretrogradecholangiopancreatography 4 <*> Procedure Endoretrogradecholangiopancreatography 5 <*> Procedure Endoretrogradecholangiopancreatography 6 <*> Procedure Endoretrogradecholangiopancreatography 12/22/20 15:13:36 Ice Puller: [id number] Modifier: [id number] 1 <+> Time In 1 <*> Procedure Endoretrogradecholangiopancreatography 2 <+> Time In 2 <*> Procedure Endoretrogradecholangiopancreatography 3 <+> Time In 3 <*> Procedure Endoretrogradecholangiopancreatography 4 <+> Time In 4 <*> Procedure Endoretrogradecholangiopancreatography 5 <+> Time In 5 <*> Procedure Endoretrogradecholangiopancreatography 6 <+> Time In 6 <*> Procedure Endoretrogradecholangiopancreatography 12/22/20 14:29:50 Ice Puller: [id number] Modifier: [id number] <+> 2 Case Attendee <+> 2 Role Performed <+> 2 Procedure <+> 3 Case Attendee <+> 3 Role Performed <+> 3 Procedure <+> 4 Case Attendee <+> 4 Role Performed <+> 4 Procedure <+> 5 Case Attendee <+> 5 Role Performed <+> 5 Procedure <+> 6 Case Attendee <+> 6 Role Performed <+> 6 Procedure [facility] Endo - Case times Entry 1 Patient In Room Time 12/22/20 14:39:00 Out Room Time 12/22/20 15:53:00 Anesthesia Start Time 12/22/20 14:39:00 Stop Time 12/22/20 15:53:00 Surgery / Procedure Times Start Time 12/22/20 15:15:00 Stop Time 12/22/20 15:43:00 Last Modified By: Danitza Briones Rn 12/22/20 15:44:19 [facility] Endo - Case times Audit 12/22/20 15:44:19 Ice Puller: [id number] Modifier: [id number] <+> 1 Out Room Time <+> 1 Stop Time <+> 1 Stop Time 12/22/20 15:15:59 Ice Puller: [id number] Modifier: [id number] <+> 1 Start Time [facility] Endo - Cautery Entry 1 ESU Identification Cautery Type Monopolar ESU ID Number Room [id number] ID Type Hospital Number Cautery Settings Blend Setting Pulse Cut Slow 120 ESU Grounding Pad Ground Pad Type Adult Grounding Pad Site Left lower leg Grounding Pad KATHI, KRISTA, Applied By FARM MARKETER Grounding Pad Site Intact, Dry Skin Condition Before Cautery Grounding Pad Site Unchanged Skin Condition After Cautery Last Modified By: Danitza Briones Rn 12/22/20 15:27:04 [facility] Endo - Delays Entry 1 Delay Reason Other, No Delay Duration 0 Minute(s) Comment No Delay Last Modified By: Danitza Briones Rn 12/22/20 14:30:08 [facility] Endo - Departure from OR Entry 1 Integumentary Assessment Integumentary WDL Assessment WDL Transfer/Handoff Transfer to PACU Phase I Handoff Method Bedside/Face to face Post-op Transport Stretcher/Gurney Via Patient Transport Danitza Briones Rn, Accompanied by MATTHEW EATON NA Last Modified By: Danitza Briones Rn 12/22/20 14:30:14 [facility] Endo - Endoscopy Details Entry 1 Abdomen Procedure Soft, Non-Tender Assessment Procedure Abdomen 12/22/20 14:49:00 Assessment D/T Radio Frequency Ablation Abdominal Pressure Last Modified By: Danitza Briones Rn 12/22/20 14:49:57 [facility] Endo - Fire Risk Assessment [...] Modified By: Danitza Briones Rn 12/22/20 14:50:01 [facility] Endo - General Case Cant Hooker 1 Case Information OR Endo 04 [facility] Case Level 1 Room Verified Yes Wound Class II - Clean-Contaminated Specialty Gastroenterology Anesthesia Type General ASA Class 3 Diagnosis Preop Diagnosis Bile duct stone Postop Same As Preop Yes Postop Diagnosis Bile duct stone Last Modified By: Danitza Briones Rn 12/22/20 14:51:13 [facility] Endo - General Case Data Audit 12/22/20 14:51:13 Ice Puller: [id number] Modifier: [id number] <+> 1 ASA Class <+> 1 Postop Same As Preop <+> 1 Preop Diagnosis <+> 1 Postop Diagnosis [facility] Endo - Implant Log Entry 1 Implant Log Implant STENT PANC SGL ST Identification [id number] Description Implant Quantity 1 Implant [id number] Identification Lot Number Implant [place] Sci:Endo Identification Blast Furnace Keeper Helper Name: Implant [id number] Identification Catalog Number Tissue Implant Last Modified By: Bre Ferrara Rn 12/22/20 16:10:27 [facility] Endo - Intraoperative Assessment Entry 1 Valid History / Yes Physical in Chart Preoperative Yes Checklist Reviewed/Evaluated Patient is Latex No Sensitive Level of WDL Consciousness (WDL = Alert, Oriented to Person, Place, and Time) Last Modified By: Danitza Briones Rn 12/22/20 14:30:34 [facility] Endo - Intraoperative Equipment Entry 1 Equipment Intraop Monitoring Electrocardiogram Three lead placement (ECG) Electrode Placement Blood Pressure Arm, left upper Location Pulse Oximeter Hand, right Probe Site Antiembolic Devices Scopes Flexible Endoscopes ERCP Scope Used Scope Serial E1 Number/Identificatio n Number Photo/Video Documentation Photo Yes Video No Last Modified By: Danitza Briones Rn 12/22/20 14:31:01 [facility] Endo - Patient Positioning Entry [...] Modified By: Danitza Briones Rn 12/22/20 15:46:31 [facility] Endo - Patient Positioning Audit 12/22/20 15:46:31 Ice Puller: [id number] Modifier: [id number] 1 <*> Procedure Endoretrogradecholangiopancreatography, Sphincterotomy, Biliary Duct Balloon Sweep, Biliary Duct Stone Extraction 12/22/20 15:46:00 Ice Puller: [id number] Modifier: [id number] 1 <*> Procedure Endoretrogradecholangiopancreatography, Sphincterotomy, Biliary Duct Balloon Sweep, Biliary Duct Stone Extraction, Pancreatic Duct Stent Placement 12/22/20 15:42:28 Ice Puller: [id number] Modifier: [id number] 1 <*> Procedure Endoretrogradecholangiopancreatography, Sphincterotomy, Biliary Duct Balloon Sweep, Biliary Duct Stone Extraction 12/22/20 15:42:14 Ice Puller: [id number] Modifier: [id number] 1 <*> Procedure Endoretrogradecholangiopancreatography, Sphincterotomy, Biliary Duct Balloon Sweep, Biliary Duct Stone Extraction, Biliary Duct Stent Placement 12/22/20 15:40:51 Ice Puller: [id number] Modifier: [id number] 1 <*> Procedure Endoretrogradecholangiopancreatography, Sphincterotomy, Biliary Duct Balloon Sweep, Biliary Duct Stone Extraction 12/22/20 15:33:37 Ice Puller: [id number] Modifier: [id number] 1 <*> Procedure Endoretrogradecholangiopancreatography, Sphincterotomy, Biliary Duct Balloon Sweep 12/22/20 15:27:25 Ice Puller: [id number] Modifier: [id number] 1 <*> Procedure Endoretrogradecholangiopancreatography, Sphincterotomy 12/22/20 15:25:13 Ice Puller: [id number] Modifier: [id number] 1 <*> Procedure Endoretrogradecholangiopancreatography [facility] Endo - Sign In Entry 1 Patient, Site, Yes Procedure Identified Surgical Consent Yes Confirmed Surgical Site N/A Marked by person performing procedure Airway Hypothermia Risk No Warming Measures No Taken Last Modified By: Danitza Briones Rn 12/22/20 14:31:13 [facility] Endo - Sign Out Entry [...] Modified By: Danitza Briones Rn 12/22/20 15:45:23 [facility] Endo - Surgical Procedures Entry [...] Danitza Briones Rn 12/22/20 15:45:28 12/22/20 15:46:24 [facility] Endo - Surgical Procedures Audit 12/22/20 15:46:24 Ice Puller: [id number] Modifier: [id number] 5 <*> Procedure Pancreatic Duct Stent Placement 5 <+> Primary Surgeon 5 <+> Specialty 5 <+> Wound Class 5 <+> Anesthesia Type 12/22/20 15:45:28 Ice Puller: [id number] Modifier: [id number] <+> 1 Stop <+> 2 Stop <+> 3 Stop <+> 4 Stop <+> 5 Start <+> 5 Stop 12/22/20 15:42:21 Ice Puller: [id number] Modifier: [id number] 1 <*> Procedure Endoretrogradecholangiopancreatography 1 <*> Primary [...] <-> 5 Anesthesia Type MAC 12/22/20 15:40:49 Ice Puller: [id number] Modifier: [id number] <+> 5 Procedure <+> 5 Primary Procedure <+> 5 Primary Surgeon <+> 5 Specialty <+> 5 Start <+> 5 Wound Class <+> 5 Anesthesia Type 12/22/20 15:33:35 Ice Puller: [id number] Modifier: [id number] <+> 4 Procedure <+> 4 Primary Procedure <+> 4 Primary Surgeon <+> 4 Specialty <+> 4 Start <+> 4 Wound Class <+> 4 Anesthesia Type 12/22/20 15:27:23 Ice Puller: [id number] Modifier: [id number] <+> 3 Procedure <+> 3 Primary Procedure <+> 3 Primary Surgeon <+> 3 Specialty <+> 3 Start <+> 3 Wound Class <+> 3 Anesthesia Type 12/22/20 15:25:11 Ice Puller: [id number] Modifier: [id number] <+> 1 Start <+> 2 Procedure <+> 2 Primary Procedure <+> 2 Primary Surgeon <+> 2 Specialty <+> 2 Start <+> 2 Wound Class <+> 2 Anesthesia Type [facility] Endo - Time Out Entry [...] Modified By: Danitza Briones Rn 12/22/20 15:46:31 [facility] Endo - Time Out Audit 12/22/20 15:46:31 Ice Puller: [id number] Modifier: [id number] 1 <*> Procedure to be Performed Endoretrogradecholangiopancreatography, Sphincterotomy, Biliary Duct Balloon Sweep, Biliary Duct Stone Extraction 12/22/20 15:46:00 Ice Puller: [id number] Modifier: [id number] 1 <*> Procedure to be Performed Endoretrogradecholangiopancreatography, Sphincterotomy, Biliary Duct Balloon Sweep, Biliary Duct Stone Extraction, Pancreatic Duct Stent Placement 12/22/20 15:42:29 Ice Puller: [id number] Modifier: [id number] 1 <*> Procedure to be Performed Endoretrogradecholangiopancreatography, Sphincterotomy, Biliary Duct Balloon Sweep, Biliary Duct Stone Extraction 12/22/20 15:42:14 Ice Puller: [id number] Modifier: [id number] 1 <*> Procedure to be Performed Endoretrogradecholangiopancreatography, Sphincterotomy, Biliary Duct Balloon Sweep, Biliary Duct Stone Extraction, Biliary Duct Stent Placement 12/22/20 15:40:52 Ice Puller: [id number] Modifier: [id number] 1 <*> Procedure to be Performed Endoretrogradecholangiopancreatography, Sphincterotomy, Biliary Duct Balloon Sweep, Biliary Duct Stone Extraction 12/22/20 15:33:38 Ice Puller: [id number] Modifier: [id number] 1 <*> Procedure to be Performed Endoretrogradecholangiopancreatography, Sphincterotomy, Biliary Duct Balloon Sweep 12/22/20 15:27:26 Ice Puller: [id number] Modifier: [id number] 1 <*> Procedure to be Performed Endoretrogradecholangiopancreatography, Sphincterotomy 12/22/20 15:25:13 Ice Puller: [id number] Modifier: [id number] 1 <*> Procedure to be Performed Endoretrogradecholangiopancreatography [facility] Endo - X-Ray and Images Entry 1 X-Ray/Imaging Type Fluoroscopy Fluoroscopy Type C-Arm Exposure Time 0.7 Last Modified By: Danitza Briones Rn 12/22/20 15:45:04 Case Comments <None> Finalized By: Bre Ferrara Rn Document Signatures Signed By: Bre Ferrara Rn 12/22/20 16:10 Electronically signed by Bre [facility] Conversion Compressor Operator Cerner at 12/27/2022 6:44 PM CDT documented in this encounter Plan of Treatment Upcoming Encounters Date Type Department Care Team (Late st Contact Info) Description 08/11/2025 2:45 PM EST Office Visit [facility] Gastroenterology [address] [facility] [address] [place] [phone] Kimberley Fierro MD [address] [facility] [address] [place] [address] [phone] documented as of this encounter Visit Diagnoses Not on filedocumented in this encounter Care Teams Agriculture Instructor Relationship Specialty Start Date End Date Jw Askew MD [address] [place] [address] PCP - General Adolescent Medicine 09/05/22 Darcy Jamison PA-C [address] [place] [address] Gastroenterology 11/18/24 documented as of this encounter
--- OUTSIDE RECORDS SUMMARY | 2025-06-15 22:42 | XMS_ITS | Clinical Summary ---
Author Organization [employer] ([place], [place], [place], [place]) Address [address] [place] [address] Care Team Providers Care Business Risk Consultant Name Role Phone Jw Askew MD Primary Care Provider + [phone] Darcy Jamison PA-C Unavailable [phone] Allergies No known active allergies Medications tenofovir (VIREAD) 300 mg tabletIndication s:Chronic viral hepatitis B without delta agent and without coma (HCC) TAKE 1 TABLET BY MOUTH DAILY 90 tablet 3 05/11/2025 Active Active Problems Problem Noted Date Diagnosed Date Chronic viral hepatitis B wi thout delta agent and without coma 05/20/2024 History of hepatitis C virus infection 4 Encounters Date Type Department Care Team Description 05/09/2025 Refill [facility] Gastroenterology [address] [facility] [address] [place] [phone] Kimberley Fierro MD Chronic viral hepatitis B without delta agent and without coma (HCC) 03/15/2025 9:00 AM EDT - 03/15/2025 11:59 PM EDT Hospital Encounter [facility] Ultrasound [address] [place] [address] Darcy Jamison PA-C Chronic viral hepatitis B without delta agent and without coma (HCC) Discharge Disposition: Home or Self Care 03/15/2025 Travel from Last 3 Months Family History Medical [...] Date Gustavo rded Speak language other than Faroese at home Not on file 09/19/2023 Want [...] Description 08/11/2025 2:45 PM EST Office Visit [facility] Gastroenterology [address] [facility] [address] [address] Kimberley Fierro MD [address] [address] Health Maintenance Due Date Last Done Comments Depression Screening (12+) 2005 HIV Screening 2008 Pneumococcal Vaccine: 0-49 Y ears (1 of 2 - PCV) 2012 Pap Smear 2014 COVID-19 VACCINE (1 - 2023-2 5 season) 2025 Influenza Vaccine (#1) 2025 Tobacco Cessation Counseling and Screening (12+) 05/20/2025 05/20/2024 DTAP/TDAP/TD VACCINES (5 - T d or Tdap) 01/08/2026 01/09/2016, 02/06/2011, 05/17/2005, Additional history exists Procedures Procedure Name Priority Date/Time Associated Diagnosis Comments US LIVER Routine 03/15/2025 9:44 AM EDT Chronic viral hepatitis B without delta agent and without coma (HCC) from Last 3 Months Results * Ultrasound [...] Jamison PA-C IMG US ORDERABLES Final Result from Last 3 Months [id number] [place] [id number] [facility] CHOICE PLUS Care Teams Business Risk Consultant Relationship Specialty Start Date End Date Jw Askew MD [address] [place] [address] PCP - General Adolescent Medicine 09/05/22 Darcy Jamison PA-C [address] [place] [address] Gastroenterology 11/18/24
--- OUTSIDE RECORDS SUMMARY | 2025-06-15 22:42 | XMS_ITS | Referral Summary ---
Author Organization [employer] ([place], [place], [place]) Address [address] [place] [address] Care Team Providers Care Measurement Technician Name Role Phone Jw Askew MD Primary Care Provider + [phone] Darcy Jamison PA-C Unavailable [phone] Encounters Date Type Department Care Team Description 05/09/2025 Refill [facility] Gastroenterology [address] [facility] [address] [place] [address] Kimberley Fierro MD Chronic viral hepatitis B without delta agent and without coma (HCC) 03/15/2025 Travel 03/15/2025 9:00 AM EDT - 03/15/2025 11:59 PM EDT Hospital Encounter [facility] Ultrasound [address] [place] [id number] Darcy Jamison PA-C Chronic viral hepatitis B without delta agent and without coma (HCC) Discharge Disposition: Home or Self Care from Last 3 Months Allergies No known [...] Date Gustavo rded Speak language other than Syriac at home Not on file 09/19/2023 Want [...] Description 08/11/2025 2:45 PM EST Office Visit [facility] Gastroenterology [address] [place] [address] [address] Kimberley Fierro MD [address] [place], [place] [id number] Procedures Procedure Name Priority Date/Time Associated Diagnosis [...] by [place] Blood PA-C. Darcy Jamison PA-C [facility] US ORDERABLES Final Result from Last 3 Months Insurance [address] [place] [id number] [facility] [place] [address] Care Teams Measurement Technician Relationship Specialty Start Date End Date Jw Askew MD [address] [place] [address] PCP - General Adolescent Medicine 09/05/22 Darcy Jamison PA-C [address] [place] [address] Gastroenterology 11/18/24
== END 2025-06-15 23:59 | disposition home or self-care (01) ==
LOC: LAB.DROPOF 22:40
PROVIDERS: PCP Nurse Practitioner Obstetrics & Gynecology; Visit Provider Nurse Practitioner Obstetrics & Gynecology
DX: R39.9 Unspecified symptoms and signs involving the genitourinary system (principal)
CPT/HCPCS: 87086

== ENCOUNTER 2025-07-02 09:56 | Outpatient (CLI) | payer OTHER, SELFPAY ==
[2025-07-02 14:47] LABS: Coronavirus 19, PCR Not Detected (NotDetected); Influenza A, PCR Not Detected (NotDetected); Influenza B, PCR Not Detected (NotDetected)
--- OUTSIDE RECORDS SUMMARY | 2025-07-05 10:04 | XMS_ITS | Encounter Summary ---
Author Organization [employer] ([place], [place], [place], [place]) Address [address] [place] [address] Care Team Providers Care Business Solutions Director Name Role Phone Jw Askew MD Primary Care Provider + [phone] Darcy Jamison PA-C Unavailable [phone] Reason for Visit * Reason Comments Medication Refill Encounter Details Date Type Department Care Team (Late st Contact Info) Description 05/09/2025 Refill [facility] Gastroenterology [address] [facility] [address] [place] [address] Kimberley Fierro MD [address] [facility] [address] [place], [place] [id number] Chronic viral hepatitis B without delta agent [...] Date Gustavo rded Speak language other than Swiss at home Not on file 09/19/2023 Want [...] Description 08/11/2025 2:45 PM EST Office Visit [facility] Gastroenterology [address] [facility] [address] [place] [address] Kimberley Fierro MD [address] [facility] [address] [place] [address] [phone] documented as of this encounter Visit Diagnoses Diagnosis Chronic viral hepatitis B without delta agent and without coma (HCC) documented in this encounter Care Teams Business Solutions Director Relationship Specialty Start Date End Date Jw Askew MD [address] [place] [address] PCP - General Adolescent Medicine 09/05/22 Darcy Jamison PA-C [address] [place] [address] Gastroenterology 11/18/24 documented as of this encounter
--- OUTSIDE RECORDS SUMMARY | 2025-07-05 10:04 | XMS_ITS | Encounter Summary ---
Author Organization [email or web address] ([place], [place], [place], [place]) Address [address] [place] [address] Care Team Providers Care Residential Coordinator Name Role Phone Jw Askew MD Primary Care Provider + [phone] Darcy Jamison PA-C Unavailable [phone] Encounter Details Date Type Department Care Team (Late st Contact Info) Description 12/22/2020 Transcribed Document [facility] Family Medicine [address] [place] [address] ProviderCandi MD [address] [place], [place] [id number] Social History Tobacco Use Types Packs/Day Years [...] Source : Stated Height Entry Format : Elk Height, Feet : 5 ft(Converted to: 152 cm, 60 Inch) Height, Inches : 8 Inch(Converted to: 0 ft 8 Inch, 20.32 cm) Clinical Height : 172.72 cm Weight Source : Standing scale Weight Entry Format : Elk Clinical Dosing Weight : 75.45 kg Weight, Pounds : 166 lb Body Surface Area (BSA) : 1.89 m2 Body Mass Index : 25.3 kg/m2 (HI) [place] Body Weight : 63 kg Milka Mathew RN-PATIENT CARE [facility] - 12/22/2020 13:33 EDT Health Histories Smoking Status : Former smoker, quit more than 30 days ago Smokeless Tobacco Status : Never Milka Mathew RN-PATIENT CARE [facility] - 12/22/2020 13:33 EDT Social [...] Symptoms : None Milka Mathew RN-PATIENT CARE [facility] - 12/22/2020 13:33 EDT COVID19 PreProcedure Screening Is this an Emergent or Add on Procedure? : No Date PreProcedure COVID-19 test known? : Yes Date of PreProcedure COVID-19 : 12/20/2020 EDT Has patient been isolated since the test : Yes Exposed to COVID19 symptoms since test? : No Milka Mathew RN-PATIENT CARE [facility] - 12/22/2020 13:33 EDT Anesthesia/Transfusion History Family History of Anesthesia Reaction : No prior transfusion(s) Transfusion History : Prior anesthesia without reaction Family History of Anesthesia Reaction : None Milka Mathew RN-PATIENT CARE [facility] - 12/22/2020 13:33 EDT Functional Assessment Living Situation : Home Current Home Treatments : None Milka Mathew RN-PATIENT CARE [facility] - 12/22/2020 13:33 EDT [place] Suicide Severity Rating Scale (C-SSRS) CSSRS Past [...] #2 Relationship : - Primary Language : Kenyan Preferred Communication Mode : Verbal Communication Barrier : None Medical Instructor Needed : No Milka Mathew RN-PATIENT CARE [...] Scale Risk Level : 25-45 Medium Risk Comerio Fall Interventions : Adequate lighting, Bed in [...] 12/22/2020 13:33 EDT Electronically signed by [facility] Conversion Maintenance Mechanic Engine Cerner at 12/27/2022 6:51 PM CDT documented in this encounter Plan of Treatment Upcoming Encounters Date Type Department Care Team (Late st Contact Info) Description 08/11/2025 2:45 PM EST Office Visit [facility] Gastroenterology [address] [facility] [address] [place] [phone] Kimberley Fierro MD [address] [facility] [address] [place], [place] [phone] documented as of this encounter Visit Diagnoses Not on filedocumented in this encounter Care Teams Residential Coordinator Relationship Specialty Start Date End Date Jw Askew MD [address] [place] [address] [place] [address] PCP - General Adolescent Medicine 09/05/22 Darcy Jamison PA-C [address] [place] [address] [place] [address] Gastroenterology 11/18/24 documented as of this encounter
--- OUTSIDE RECORDS SUMMARY | 2025-07-05 10:04 | XMS_ITS | Encounter Summary ---
Author Organization [employer] ([place], [place], [place], [place]) Address [address] [place] [address] Care Team Providers Care Manufacturing Planner Name Role Phone Jw Askew MD Primary Care Provider + [phone] Darcy Jamison PA-C Unavailable [phone] Reason for Visit * Reason Comments Medication Refill Encounter Details Date Type Department Care Team (Late st Contact Info) Description 08/27/2022 Refill [facility] Gastroenterology [address] [place] [phone] Kimberley Fierro MD [address] [place] [address] [phone] Chronic viral hepatitis B without delta agent [...] Office Visit [facility] Gastroenterology [address] [place] [phone] Kimberley Fierro MD [address] [place] [address] documented as of this encounter Visit Diagnoses Diagnosis Chronic viral hepatitis B without delta agent and without coma (HCC)- Primary documented in this encounter Care Teams Manufacturing Planner Relationship Specialty Start Date End Date Jw Askew MD [address] [place] [address] [place] [address] PCP - General Adolescent Medicine 09/05/22 Darcy Jamison PA-C [address] [place] [facility] [address] [place] [address] Gastroenterology 11/18/24 documented as of this encounter
--- OUTSIDE RECORDS SUMMARY | 2025-07-05 10:04 | XMS_ITS | Encounter Summary ---
Author Organization [employer] ([place], [place], [place], [place]) Address [address] [place] [address] Care Team Providers Care Golf Shoe Spike Assembler Name Role Phone Jw Askew MD Primary Care Provider + [phone] Darcy Jamison PA-C Unavailable [phone] Encounter Details Date Type Department Care Team (Late st Contact Info) Description 12/22/2020 Transcribed Document [facility] Family Medicine [address] [place] [address] ProviderCandi MD [address] [place] [address] Social History Tobacco Use Types [...] Bonilla MD - 12/22/2020 4:04 PM CDT [facility] [place] [id number] VARINDER INMAN JAYLON :1995 Visit Time:12/22/2020 What [...] When Comments Follow-up as instructed Where: [address] [place] [address]- Medications What How Much When Instructions Next [...] activities are safe for you. ??? Take ceim-myk-rqavxmd and prescription medicines only as told by [...] provider. Document Revised: 08/29/2018 Document Reviewed: 04/11/2018 [employer] Patient Education ?? 2020 [employer]. Endoscopic Retrograde Cholangiopancreatogram, Care After This [...] Follow these instructions at home: ??? Take hwcr-wcu-hnyasgx and prescription medicines only as told by [...] provider. Document Revised: 08/08/2018 Document Reviewed: 07/15/2017 [employer] Patient Education ?? 2020 [employer] Emergency Awareness and Preventative Care STROKE [...] was given the opportunity to ask questions. Patient/Bradder Name: Patient/Bradder Signature: Relationship to Patient: Clinician/Hospital Bradder Signature: Date: documented in this encounter Plan of Treatment Upcoming Encounters Date Type Department Care Team (Late st Contact Info) Description 08/11/2025 2:45 PM EST Office Visit [facility] Gastroenterology [address] [place] [phone] [place] [address] [place], [place] [phone] documented as of this encounter Visit Diagnoses Not on filedocumented in this encounter Care Teams Golf Shoe Spike Assembler Relationship Specialty Start Date End Date Jw Askew MD [address] [place] [address] [place] [address] PCP - General Adolescent Medicine 09/05/22 Darcy Jamison PA-C [address] [place] [address] [place] [address] Gastroenterology 11/18/24 documented as of this encounter
--- OUTSIDE RECORDS SUMMARY | 2025-07-05 10:04 | XMS_ITS | Referral Summary ---
Author Organization [employer] ([place], [place], [place], [place]) Address [address] [place] [address] Care Team Providers Care Prism Measurer Name Role Phone Jw Askew MD Primary Care Provider + [phone] Darcy Jamison PA-C Unavailable [phone] Encounters Date Type Department Care Team Description 05/09/2025 Refill [facility] Gastroenterology [address] [place] [address] [address] [place] [phone] Kimberley Fierro MD Chronic viral hepatitis B without delta agent and without coma (HCC) from Last 3 Months Allergies No known active allergies Medications tenofovir (VIREAD) 300 mg tabletIndication s:Chronic viral hepatitis B without delta agent and without coma (HCC) TAKE 1 TABLET BY MOUTH DAILY 90 tablet 3 05/11/2025 Active Active Problems Problem Noted Date Diagnosed Date Chronic viral hepatitis B wi thout delta agent and without coma 05/20/2024 History of hepatitis C virus infection Social History Tobacco Use Types Packs/Day Years [...] Date Gustavo rded Speak language other than Nigerien at home Not on file 09/19/2023 Want [...] Description 08/11/2025 2:45 PM EST Office Visit [facility] Gastroenterology [address] [place] [address] [phone] [place] [address] [place] [address] Insurance [facility] CHOICE PLUS Care Teams Prism Measurer Relationship Specialty Start Date End Date Jw Askew MD [address] [place] [address] PCP - General Adolescent Medicine 09/05/22 Darcy Jamison PA-C [address] [place] [address] Gastroenterology 11/18/24
--- OUTSIDE RECORDS SUMMARY | 2025-07-05 10:04 | XMS_ITS | Continuity of Care Document ---
Author Organization [employer], [facility] Address [address] [place] [address] Assessment No assessment recorded. Plan of Treatment Reminders Order Date Submit Date Provider Last Modified By Organization Details Last Modified Time Details Appointments FOLLOW UP 30 2024 03:00P M Fide Guillen PA-C Not available Not available Not available Lab None recorded. Referral None recorded. Procedures None recorded. Surgeries None recorded. Imaging None recorded. Medication Orders buspirone 5 mg tablet 2024 025 [facility], [address], [address], 05/06/2025 12:56:50 Patient TargetsNo targets recorded. Patient Instructions Encounter Date Encounter Id Patient Instructions Last Modified By Organization Details Last Modified Time 05/06/2025 [id number] bipolar disorder : care instructions [id number] Not available 05/06/2025 12:56:44 learning about mood disorders Not available 05/06/2025 12:56:44 Reason for Referral None Reported. Problems Name Problem SNOMED Code Status Onset Date Resolution Date Notes Provider Name and Address Organization Details Recorded Time Bipolar disorder 64823767 Active 024 MALIKA Beauchamp [address] [place] [address], [phone], [employer] 13:21:46 Post-traumat ic stress disorder 49551004 Active 024 MALIKA Beauchamp [address] [place] [address], [phone] 8, [employer] 4 10:45:07 Allergic reaction 330165310 Active Yusuf MALIKA Beauchamp [address] [place] [address], [phone] 8, [employer] 5 17:15:21 Vitamin D deficiency 83509044 Active Yusuf Elizalde MALIKA Guillen [address] [place] [address], [address] 8, [employer] 5 08:45:01 Anxiety 83280541 Active Yusuf Elizalde MALIKA Guillen [address] [place] [address], [address] 8, [employer] 5 12:56:06 Problem Notes None recorded. Procedures Surgical History Date Name Laterality Status Provider Name and Address Organization Details Recorded Time 3 Date of Last Pap Smear completed [employer] 10/23/2024 09:21:03 Tubal Ligation completed [employer] 07/31/2024 17:10:45 Gallbladder Surgery completed [employer] 07/31/2024 17:10:45 Imaging Results None recorded. Procedure [...] completed Not Available Not Available Not Available fluoxetine 10 mg capsule TAKE 1 CAPSULE BY MOUTH ONCE DAILY active Not Available Not Available No t Available tenofovir disoproxil fumarate 300 mg tablet [...] and Address Organization Details Last Updated DateTime 172.72 cm 27.2 kg/m2 35108.7 5 g 98 % 98 % 60 /min 98 [degF] 122/78 mm[Hg] [employer] 11:30:49 Social History Question Answer Notes LastModified by Organizat ion Details LastModified Time Tobacco Smoking Status Former Smoker [employer] 07/31/2024 17:10:45 Do You Have An Advance [...] Information not available 07/31/2024 What Type Of Bleach Boiler Puller Do You Use? None Information not available 07/31/2024 Have You Been To An Area Known To Be High Risk For COVID-19? No Information not available 07/31/2024 Are You Deaf Or Do You Have Serious Difficulty Hearing? No Information not available 07/31/2024 What Type Of Diet Are You Following? REGULAR Information not available 07/31/2024 Which Illicit Or Recreational Drugs Have You Used? Huxley Information not available 07/31/2024 What Is The Highest Grade Or Level Of School You Have Completed Or The Highest Degree You Have Received? [id number] Information not available 07/31/2024 How Many Days [...] Do You Have A Medical Power Of Hand Coper? No Information not available 07/31/2024 What Was [...] anxious, or unable to sleep at night)? [id number] Information not available 07/31/2024 Do you have [...] History Condition Response Coronary Artery Disease N Other N Gout N Kidney Stones N Blood Diseases N Hyperthyroidism N Blood Transfusion N Breast Cancer N Emergency room visit since last appointm ent. N COPD N Depression Y Dermatologic Disorders N Hypothyroidism N Lung Disease N Developmental or Behavioral Disorders N Defects or Inherited Disease N Breast Problem N Difficulty Swallowing N [...] Recorded Time Tdap 6 completed MALIKA Beauchamp [address] [place] [address], [phone], [facility] [employer] 08/04/2024 10:44:16 MMR 7 completed Lucia Purcell null, [employer] 08/18/2024 14:31:51 Tdap 1 completed Lucia Purcell null, [employer] 08/18/2024 14:31:51 OPV, trivalent 7 completed Lucia Purcell null, [employer] 08/18/2024 14:31:51 Influenza, split virus, trivalent, preservative 9 completed Lucia Purcell null, [employer] 08/18/2024 14:31:51 HPV, quadrivalent 1 completed Lucia Purcell null, [employer] 08/18/2024 14:31:51 HPV, quadrivalent 1 completed Lucia Purcell null, [employer] 08/18/2024 14:31:51 HPV, quadrivalent 2 completed [employer] null, [employer] 08/18/2024 14:31:51 Td (adult), 2 Lf tetanus toxoid, preservative free, adsorbed 5 completed Lucia Purcell null, [employer] 08/18/2024 14:31:51 Hep A, adult 9 completed [employer] null, [employer] 08/18/2024 14:31:51 DTaP, unspecified formulation 7 completed Lucia Purcell null, [employer] 08/18/2024 14:31:51 meningococcal MCV4, unspecified formulation 1 completed Lucia Purcell null, [employer] 08/18/2024 14:31:51 Tdap 5 completed Not Available [facility] 05/06/2025 11:27:02 Past Encounters Encounter ID Performer Location Encounter Start Date Encounter Closed Date Diagnosis/Indication Diagnosis SNOMED-CT Code Diagnosis ICD10 Code Diagnosis IMO Codes Diagnosis Note [id number] MALIKA Beauchamp [facility] [address] [facility] [place] [place] [address] 05/06/2025 11:26:11 05/06/2025 11:50:07 Bipolar disorder 93595057 F31.0 8910657 Continue Caplyta 21 mg - patient given meds that were shipped from [facility] Anxiety 37449392 F41.9 56643 Health Concerns Section Related Observation LastModified by Organization Detai ls LastModified Time None Recorded Concern Status LastModified by Organization Details LastModified Time None Recorded Payers Encounter Date Sequence Insurance Name Policy Number Policy Coe Covered Member ID Coe Member ID Guarantor Name 05/06/2025 1 [facility] [id number] Lu Gaurang [id number] Lu Merlos Notes Date Note Type Note Provider Name and Address Organization Details Recorded Time 05/06/2025 text/html ROS as noted in the HPI Patient presents for followup. Doing well with Caplyta. States it has significantly helped her mood. Does wonder if there is anythign she can take for anxiety. Was on something 9-10 years ago but really can't remember what. MALIKA Beauchamp [address] [place] [address], [place], [address], [employer] [facility] 05/06/2025 13:00:03 OBGyn Episode No OBEpisode recorded.
--- OUTSIDE RECORDS SUMMARY | 2025-07-05 10:04 | XMS_ITS | Clinical Summary ---
Author Organization [employer] ([place], [place], [place], [place]) Address [address] [place] [address] Care Team Providers Care Gray Mixing Operator Name Role Phone Jw Askew MD Primary Care Provider + [phone] Darcy Jamison PA-C Unavailable [phone] Allergies No known active allergies Medications tenofovir (VIREAD) 300 mg tabletIndication s:Chronic viral hepatitis B without delta agent and without coma (HCC) TAKE 1 TABLET BY MOUTH DAILY 90 tablet 3 05/11/2025 Active Active Problems Problem Noted Date Diagnosed Date Chronic viral hepatitis B wi thout delta agent and without coma 05/20/2024 History of hepatitis C virus infection Encounters Date Type Department Care Team Description 05/09/2025 Refill [facility] Gastroenterology [address] [place] [phone] Kimberley Fierro MD Chronic viral hepatitis B without delta agent and without coma (HCC) from Last 3 Months Family History Medical [...] Date Gustavo rded Speak language other than American at home Not on file 09/19/2023 Want [...] Description 08/11/2025 2:45 PM EST Office Visit [facility] Gastroenterology [address] [facility] [address] [address] Kimberley Fierro MD [address] [place] [phone] Health Maintenance Due Date Last Done Comments Depression Screening (12+) 2005 HIV Screening 2008 Pneumococcal Vaccine: 0-49 Y ears (1 of 2 - PCV) 2012 Pap Smear 2014 COVID-19 VACCINE (1 - 2023-2 5 season) 2025 Influenza Vaccine (#1) 2025 Tobacco Cessation Counseling and Screening (12+) 05/20/2025 05/20/2024 DTAP/TDAP/TD VACCINES (5 - T d or Tdap) 01/08/2026 01/09/2016, 02/06/2011, 05/17/2005, Additional history exists Insurance [address] [place] [id number] [facility] CHOICE PLUS Care Teams Gray Mixing Operator Relationship Specialty Start Date End Date Jw Askew MD [address] [place] [address] PCP - General Adolescent Medicine 09/05/22 Darcy Jamison PA-C [address] [place] [address] Gastroenterology 11/18/24
--- OUTSIDE RECORDS SUMMARY | 2025-07-05 10:04 | XMS_ITS | Encounter Summary ---
Author Organization [employer] ([place], [place], [place], [place]) Address [address] [place] [address] Care Team Providers Care Nougat Candy Maker Helper Name Role Phone Jw Askew MD Primary Care Provider + [phone] Darcy Jamison PA-C Unavailable [phone] Encounter Details Date Type Department Care Team (Late st Contact Info) Description 12/22/2020 Transcribed Document [facility] [place] Family Medicine [address] [place] [address] ProviderCandi MD [address], [place] [id number] Social History Tobacco Use Types Packs/Day Years Used Date Smoking Tobacco: Never Assessed Comments Unknown Sex and Gender Information Value Date Recorded Sex Assigned at Not on file Legal Sex Female 7:01 PM CDT Gender Identity Not on file Sexual Orientation Not on file documented as of this encounter Miscellaneous Notes * Cerner Conversion Note - Candi ProviderMD - 12/22/2020 3:15 PM CDT [facility] Endo IntraOp Summary Primary Physician: KIMBERLEY FIERRO MD-GAE Finalized Date/Time: 12/22/20 16:10:47 Pt. Name: LU INMAN JAYLON /Sex: 1995 Female Med Rec #: [id number] Physician: KIMBERLEY FIERRO MD-GAE Financial #: [id number] Pt. Type: O Room/Bed: END/ Admit/Disch: 12/22/20 13:07:00 - Institution: [facility] Endo - Case Attendance Entry 1 Entry 2 Entry 3 Case Attendee KIMBERLEY FIERRO MD-SILVANO WYMAN, MATTHEW KIRK NA Role Performed Surgeon/Proceduralist, Anesthesiologist of CONTINUOUS TOWEL ROLLER/Nurse Oncology Technician First Record Time In 12/22/20 15:13:00 12/22/20 [...] Danitza Briones, MATTHEW Garcia RN FUGATE, NATHAN, GEOGRAPHY FACULTY MEMBER Role Performed Lead Supply Worker, First Lead Supply Worker, Second Scrub, First Time In 12/22/20 14:39:00 [...] Rn 12/22/20 15:46:29 12/22/20 15:46:29 12/22/20 15:46:29 [facility] Endo - Case Attendance Audit 12/22/20 15:46:29 Van Driver Helper: [id number] Modifier: [id number] 1 <*> Procedure Endoretrogradecholangiopancreatography, Sphincterotomy, Biliary Duct [...] Sweep, Biliary Duct Stone Extraction 12/22/20 15:45:59 Van Driver Helper: [id number] Modifier: [id number] 1 <*> Procedure Endoretrogradecholangiopancreatography, Sphincterotomy, Biliary Duct [...] Extraction, Pancreatic Duct Stent Placement 12/22/20 15:45:24 Van Driver Helper: [id number] Modifier: [id number] 1 <+> Time Out 1 <*> Procedure [...] Extraction, Pancreatic Duct Stent Placement 12/22/20 15:42:27 Van Driver Helper: [id number] Modifier: [id number] 1 <*> Procedure Endoretrogradecholangiopancreatography, Sphincterotomy, Biliary Duct [...] Sweep, Biliary Duct Stone Extraction 12/22/20 15:42:13 Van Driver Helper: [id number] Modifier: [id number] 1 <*> Procedure Endoretrogradecholangiopancreatography, Sphincterotomy, Biliary Duct [...] Extraction, Biliary Duct Stent Placement 12/22/20 15:40:51 Van Driver Helper: [id number] Modifier: [id number] 1 <*> Procedure Endoretrogradecholangiopancreatography, Sphincterotomy, Biliary Duct [...] Sweep, Biliary Duct Stone Extraction 12/22/20 15:33:37 Van Driver Helper: [id number] Modifier: [id number] 1 <*> Procedure Endoretrogradecholangiopancreatography, Sphincterotomy, Biliary Duct Balloon Sweep 2 <*> Procedure Endoretrogradecholangiopancreatography, Sphincterotomy, Biliary Duct Balloon Sweep 3 <*> Procedure Endoretrogradecholangiopancreatography, Sphincterotomy, Biliary Duct Balloon Sweep 4 <*> Procedure Endoretrogradecholangiopancreatography, Sphincterotomy, Biliary Duct Balloon Sweep 5 <*> Procedure Endoretrogradecholangiopancreatography, Sphincterotomy, Biliary Duct Balloon Sweep 6 <*> Procedure Endoretrogradecholangiopancreatography, Sphincterotomy, Biliary Duct Balloon Sweep 12/22/20 15:27:25 Van Driver Helper: [id number] Modifier: [id number] 1 <*> Procedure Endoretrogradecholangiopancreatography, Sphincterotomy 2 <*> Procedure Endoretrogradecholangiopancreatography, Sphincterotomy 3 <*> Procedure Endoretrogradecholangiopancreatography, Sphincterotomy 4 <*> Procedure Endoretrogradecholangiopancreatography, Sphincterotomy 5 <*> Procedure Endoretrogradecholangiopancreatography, Sphincterotomy 6 <*> Procedure Endoretrogradecholangiopancreatography, Sphincterotomy 12/22/20 15:25:12 Van Driver Helper: [id number] Modifier: [id number] 1 <*> Procedure Endoretrogradecholangiopancreatography 2 <*> Procedure Endoretrogradecholangiopancreatography 3 <*> Procedure Endoretrogradecholangiopancreatography 4 <*> Procedure Endoretrogradecholangiopancreatography 5 <*> Procedure Endoretrogradecholangiopancreatography 6 <*> Procedure Endoretrogradecholangiopancreatography 12/22/20 15:13:36 Van Driver Helper: [id number] Modifier: [id number] 1 <+> Time In 1 <*> Procedure Endoretrogradecholangiopancreatography 2 <+> Time In 2 <*> Procedure Endoretrogradecholangiopancreatography 3 <+> Time In 3 <*> Procedure Endoretrogradecholangiopancreatography 4 <+> Time In 4 <*> Procedure Endoretrogradecholangiopancreatography 5 <+> Time In 5 <*> Procedure Endoretrogradecholangiopancreatography 6 <+> Time In 6 <*> Procedure Endoretrogradecholangiopancreatography 12/22/20 14:29:50 Van Driver Helper: [id number] Modifier: [id number] <+> 2 Case Attendee <+> 2 Role Performed <+> 2 Procedure <+> 3 Case Attendee <+> 3 Role Performed <+> 3 Procedure <+> 4 Case Attendee <+> 4 Role Performed <+> 4 Procedure <+> 5 Case Attendee <+> 5 Role Performed <+> 5 Procedure <+> 6 Case Attendee <+> 6 Role Performed <+> 6 Procedure [facility] Endo - Case times Entry 1 Patient In Room Time 12/22/20 14:39:00 Out Room Time 12/22/20 15:53:00 Anesthesia Start Time 12/22/20 14:39:00 Stop Time 12/22/20 15:53:00 Surgery / Procedure Times Start Time 12/22/20 15:15:00 Stop Time 12/22/20 15:43:00 Last Modified By: Danitza Briones Rn 12/22/20 15:44:19 [facility] Endo - Case times Audit 12/22/20 15:44:19 Van Driver Helper: [id number] Modifier: [id number] <+> 1 Out Room Time <+> 1 Stop Time <+> 1 Stop Time 12/22/20 15:15:59 Van Driver Helper: [id number] Modifier: [id number] <+> 1 Start Time [facility] Endo - Cautery Entry 1 ESU Identification Cautery Type Monopolar ESU ID Number Room 4 ID Type Hospital Number Cautery Settings Blend Setting Pulse Cut Slow 120 ESU Grounding Pad Ground Pad Type Adult Grounding Pad Site Left lower leg Grounding Pad KATHI, KRISTA, Applied By GEOGRAPHY FACULTY MEMBER Grounding Pad Site Intact, Dry Skin Condition Before Cautery Grounding Pad Site Unchanged Skin Condition After Cautery Last Modified By: Danitza Briones Rn 12/22/20 15:27:04 [facility] Endo - Delays Entry 1 Delay Reason Other, No Delay Duration 0 Minute(s) Comment No Delay Last Modified By: Danitza Briones Rn 12/22/20 14:30:08 [facility] Endo - Departure from OR Entry 1 Integumentary Assessment Integumentary WDL Assessment WDL Transfer/Handoff Transfer to PACU Phase I Handoff Method Bedside/Face to face Post-op Transport Stretcher/Gurney Via Patient Transport Danitza Briones Rn, Accompanied by MATTHEW EATON NA Last Modified By: Danitza Briones Rn 12/22/20 14:30:14 [facility] Endo - Endoscopy Details Entry 1 Abdomen Procedure Soft, Non-Tender Assessment Procedure Abdomen 12/22/20 14:49:00 Assessment D/T Radio Frequency Ablation Abdominal Pressure Last Modified By: Danitza Briones Rn 12/22/20 14:49:57 [facility] Endo - Fire Risk Assessment Entry 1 [...] Modified By: Danitza Briones Rn 12/22/20 14:50:01 [facility] Endo - General Case House Mother 1 Case Information OR Endo 04 [facility] Case Level 1 Room Verified Yes Wound Class II - Clean-Contaminated Specialty Gastroenterology Anesthesia Type General ASA Class 3 Diagnosis Preop Diagnosis Bile duct stone Postop Same As Preop Yes Postop Diagnosis Bile duct stone Last Modified By: Danitza Briones Rn 12/22/20 14:51:13 [facility] Endo - General Case Data Audit 12/22/20 14:51:13 Van Driver Helper: [id number] Modifier: [id number] <+> 1 ASA Class <+> 1 Postop Same As Preop <+> 1 Preop Diagnosis <+> 1 Postop Diagnosis [facility] Endo - Implant Log Entry 1 Implant Log Implant STENT PANC SGL ST Identification [id number] Description Implant Quantity 1 Implant [id number] Identification Lot Number Implant [place] Sci:Endo Identification Head Golf Professional Name: Implant [id number] Identification Catalog Number Tissue Implant Last Modified By: Bre Ferrara Rn 12/22/20 16:10:27 [facility] Endo - Intraoperative Assessment Entry 1 Valid History / Yes Physical in Chart Preoperative Yes Checklist Reviewed/Evaluated Patient is Latex No Sensitive Level of WDL Consciousness (WDL = Alert, Oriented to Person, Place, and Time) Last Modified By: Danitza Briones Rn 12/22/20 14:30:34 [facility] Endo - Intraoperative Equipment Entry 1 Equipment Intraop Monitoring Electrocardiogram Three lead placement (ECG) Electrode Placement Blood Pressure Arm, left upper Location Pulse Oximeter Hand, right Probe Site Antiembolic Devices Scopes Flexible Endoscopes ERCP Scope Used Scope Serial E1 Number/Identificatio n Number Photo/Video Documentation Photo Yes Video No Last Modified By: Danitza Briones Rn 12/22/20 14:31:01 [facility] Endo - Patient Positioning Entry 1 Procedure [...] Modified By: Danitza Briones Rn 12/22/20 15:46:31 [facility] Endo - Patient Positioning Audit 12/22/20 15:46:31 Van Driver Helper: [id number] Modifier: [id number] 1 <*> Procedure Endoretrogradecholangiopancreatography, Sphincterotomy, Biliary Duct Balloon Sweep, Biliary Duct Stone Extraction 12/22/20 15:46:00 Van Driver Helper: [id number] Modifier: [id number] 1 <*> Procedure Endoretrogradecholangiopancreatography, Sphincterotomy, Biliary Duct Balloon Sweep, Biliary Duct Stone Extraction, Pancreatic Duct Stent Placement 12/22/20 15:42:28 Van Driver Helper: [id number] Modifier: [id number] 1 <*> Procedure Endoretrogradecholangiopancreatography, Sphincterotomy, Biliary Duct Balloon Sweep, Biliary Duct Stone Extraction 12/22/20 15:42:14 Van Driver Helper: [id number] Modifier: [id number] 1 <*> Procedure Endoretrogradecholangiopancreatography, Sphincterotomy, Biliary Duct Balloon Sweep, Biliary Duct Stone Extraction, Biliary Duct Stent Placement 12/22/20 15:40:51 Van Driver Helper: [id number] Modifier: [id number] 1 <*> Procedure Endoretrogradecholangiopancreatography, Sphincterotomy, Biliary Duct Balloon Sweep, Biliary Duct Stone Extraction 12/22/20 15:33:37 Van Driver Helper: [id number] Modifier: [id number] 1 <*> Procedure Endoretrogradecholangiopancreatography, Sphincterotomy, Biliary Duct Balloon Sweep 12/22/20 15:27:25 Van Driver Helper: [id number] Modifier: [id number] 1 <*> Procedure Endoretrogradecholangiopancreatography, Sphincterotomy 12/22/20 15:25:13 Van Driver Helper: [id number] Modifier: [id number] 1 <*> Procedure Endoretrogradecholangiopancreatography [facility] Endo - Sign In Entry 1 Patient, Site, Yes Procedure Identified Surgical Consent Yes Confirmed Surgical Site N/A Marked by person performing procedure Airway Hypothermia Risk No Warming Measures No Taken Last Modified By: Danitaz Briones Rn 12/22/20 14:31:13 [facility] Endo - Sign Out Entry 1 RN [...] Modified By: Danitza Briones Rn 12/22/20 15:45:23 [facility] Endo - Surgical Procedures Entry 1 Entry [...] Danitza Briones Rn 12/22/20 15:45:28 12/22/20 15:46:24 [facility] Endo - Surgical Procedures Audit 12/22/20 15:46:24 Van Driver Helper: [id number] Modifier: [id number] 5 <*> Procedure Pancreatic Duct Stent Placement 5 <+> Primary Surgeon 5 <+> Specialty 5 <+> Wound Class 5 <+> Anesthesia Type 12/22/20 15:45:28 Van Driver Helper: [id number] Modifier: [id number] <+> 1 Stop <+> 2 Stop <+> 3 Stop <+> 4 Stop <+> 5 Start <+> 5 Stop 12/22/20 15:42:21 Van Driver Helper: [id number] Modifier: [id number] 1 <*> Procedure Endoretrogradecholangiopancreatography 1 <*> Primary [...] <-> 5 Anesthesia Type MAC 12/22/20 15:40:49 Van Driver Helper: [id number] Modifier: [id number] <+> 5 Procedure <+> 5 Primary Procedure <+> 5 Primary Surgeon <+> 5 Specialty <+> 5 Start <+> 5 Wound Class <+> 5 Anesthesia Type 12/22/20 15:33:35 Van Driver Helper: [id number] Modifier: [id number] <+> 4 Procedure <+> 4 Primary Procedure <+> 4 Primary Surgeon <+> 4 Specialty <+> 4 Start <+> 4 Wound Class <+> 4 Anesthesia Type 12/22/20 15:27:23 Van Driver Helper: [id number] Modifier: [id number] <+> 3 Procedure <+> 3 Primary Procedure <+> 3 Primary Surgeon <+> 3 Specialty <+> 3 Start <+> 3 Wound Class <+> 3 Anesthesia Type 12/22/20 15:25:11 Van Driver Helper: [id number] Modifier: [id number] <+> 1 Start <+> 2 Procedure <+> 2 Primary Procedure <+> 2 Primary Surgeon <+> 2 Specialty <+> 2 Start <+> 2 Wound Class <+> 2 Anesthesia Type [facility] Endo - Time Out Entry 1 Procedure [...] Modified By: Danitza Briones Rn 12/22/20 15:46:31 [facility] Endo - Time Out Audit 12/22/20 15:46:31 Van Driver Helper: [id number] Modifier: [id number] 1 <*> Procedure to be Performed Endoretrogradecholangiopancreatography, Sphincterotomy, Biliary Duct Balloon Sweep, Biliary Duct Stone Extraction 12/22/20 15:46:00 Van Driver Helper: [id number] Modifier: [id number] 1 <*> Procedure to be Performed Endoretrogradecholangiopancreatography, Sphincterotomy, Biliary Duct Balloon Sweep, Biliary Duct Stone Extraction, Pancreatic Duct Stent Placement 12/22/20 15:42:29 Van Driver Helper: [id number] Modifier: [id number] 1 <*> Procedure to be Performed Endoretrogradecholangiopancreatography, Sphincterotomy, Biliary Duct Balloon Sweep, Biliary Duct Stone Extraction 12/22/20 15:42:14 Van Driver Helper: [id number] Modifier: [id number] 1 <*> Procedure to be Performed Endoretrogradecholangiopancreatography, Sphincterotomy, Biliary Duct Balloon Sweep, Biliary Duct Stone Extraction, Biliary Duct Stent Placement 12/22/20 15:40:52 Van Driver Helper: [id number] Modifier: [id number] 1 <*> Procedure to be Performed Endoretrogradecholangiopancreatography, Sphincterotomy, Biliary Duct Balloon Sweep, Biliary Duct Stone Extraction 12/22/20 15:33:38 Van Driver Helper: [id number] Modifier: [id number] 1 <*> Procedure to be Performed Endoretrogradecholangiopancreatography, Sphincterotomy, Biliary Duct Balloon Sweep 12/22/20 15:27:26 Van Driver Helper: [id number] Modifier: [id number] 1 <*> Procedure to be Performed Endoretrogradecholangiopancreatography, Sphincterotomy 12/22/20 15:25:13 Van Driver Helper: [id number] Modifier: [id number] 1 <*> Procedure to be Performed Endoretrogradecholangiopancreatography [facility] Endo - X-Ray and Images Entry 1 X-Ray/Imaging Type Fluoroscopy Fluoroscopy Type C-Arm Exposure Time 0.7 Last Modified By: Danitza Briones Rn 12/22/20 15:45:04 Case Comments <None> Finalized By: Bre Ferrara Rn Document Signatures Signed By: Bre Ferrara Rn 12/22/20 16:10 Electronically signed by Bre [facility] Conversion Acute Care Nurse Practitioner Cerner at 12/27/2022 6:44 PM CDT documented in this encounter Plan of Treatment Upcoming Encounters Date Type Department Care Team (Late st Contact Info) Description 08/11/2025 2:45 PM EST Office Visit [facility] Gastroenterology [address] [facility] [address] [place] [phone] Kimberley Fierro MD [address] [facility] [address] [place] [phone] documented as of this encounter Visit Diagnoses Not on filedocumented in this encounter Care Teams Nougat Candy Maker Helper Relationship Specialty Start Date End Date Jw Askew MD [address] [place] [address] PCP - General Adolescent Medicine 09/05/22 Darcy Jamison PA-C [address] [place] [address] Gastroenterology 11/18/24 documented as of this encounter
--- OUTSIDE RECORDS SUMMARY | 2025-07-05 10:06 | XMS_ITS | Encounter Summary ---
Author Organization [employer] ([place], [place], [place], [place]) Address [address] [place] [address] Care Team Providers Care Production Team Advisor Name Role Phone Jw Askew MD Primary Care Provider + [phone] Darcy Jamison PA-C Unavailable [phone] Encounter Details Date Type Department Care Team (Late st Contact Info) Description 12/22/2020 Transcribed Document [facility] [place] Family Medicine [address] [place] [address] Candi Bonilla MD [address] [place], [place] [id number] Social History Tobacco Use Types Packs/Day Years [...] activities are safe for you. ??? Take qdux-pmj-zjkpdku and prescription medicines only as told by [...] provider. Document Revised: 08/29/2018 Document Reviewed: 04/11/2018 [employer] Patient Education ? 2020 [employer]. Endoscopic Retrograde Cholangiopancreatogram, Care After This sheet [...] Follow these instructions at home: ??? Take pjcx-yqo-bjbueqj and prescription medicines only as told by [...] provider. Document Revised: 08/08/2018 Document Reviewed: 07/15/2017 [employer] Patient Education ? 2020 [employer] documented in this encounter Plan of Treatment Upcoming Encounters Date Type Department Care Team (Late st Contact Info) Description 08/11/2025 2:45 PM EST Office Visit [facility] Gastroenterology [address] [facility] [address] [place] [address] Kimberley Fierro MD [address] [facility] [address] [place] [address] documented as of this encounter Visit Diagnoses Not on filedocumented in this encounter Care Teams Production Team Advisor Relationship Specialty Start Date End Date Jw Askew MD [address] [place], [place] [address] PCP - General Adolescent Medicine 09/05/22 Darcy Jamison PA-C [address] [place] [address] Gastroenterology 11/18/24 documented as of this encounter
--- OUTSIDE RECORDS SUMMARY | 2025-07-05 10:06 | XMS_ITS | Encounter Summary ---
Author Organization [employer] ([place], [place], [place], [place]) Address [address] [place] [address] Care Team Providers Care Air Route Controller Name Role Phone Jw Askew MD Primary Care Provider + [phone] Darcy Jamison PA-C Unavailable [phone] Encounter Details Date Type Department Care Team (Late st Contact Info) Description 12/22/2020 Transcribed Document [facility] [place] Family Medicine [address] [place] [address] ProviderCandi MD [address] [place], [place] [id number] Social History Tobacco Use Types Packs/Day Years Used Date Smoking Tobacco: Never Assessed Comments Unknown Sex and Gender Information Value Date Recorded Sex Assigned at Not on file Legal Sex Female 7:01 PM CDT Gender Identity Not on file Sexual Orientation Not on file documented as of this encounter Miscellaneous Notes * Cerner Conversion Note - Candi ProviderMD - 12/22/2020 2:00 PM CDT [facility] Endo PreOp Summary Primary Physician: GABRIELA FIERRO MD-GAE Finalized Date/Time: 12/22/20 14:08:16 Pt. Name: VARINDER INMAN JAYLON /Sex: 1995 Female Med Rec #: [id number] Physician: GABRIELA FIERRO MD-GAE Financial #: [id number] Pt. Type: O Room/Bed: END/ Admit/Disch: 12/22/20 13:07:00 - Institution: [facility] Endo PreOp Case Times Entry 1 In Preop 12/22/20 13:20:00 Ready for Holding n/a Room Patient Ready for n/a Surgery Patient Out of Preop 12/22/20 14:08:00 Patient Out of n/a Holding Room Last Modified By: Milka Mathew RN-PATIENT CARE BEDSIDE NON-EXEMPT 12/22/20 14:08:13 [facility] Endo PreOp Case Times Audit 12/22/20 14:08:13 Orthopedic Podiatrist: [email or web address] Modifier: [email or web address] <+> 1 Patient Out of Preop Finalized By: Milka Mathew RN-PATIENT CARE BEDSIDE NON-EXEMPT Document Signatures Signed By: Milka Mathew RN-PATIENT CARE BEDSIDE NON-EXEMPT 12/22/20 14:08 Electronically signed by Bre [facility] Conversion Headrig Sawyer Cerner at 12/27/2022 6:35 PM CDT documented in this encounter Plan of Treatment Upcoming Encounters Date Type Department Care Team (Late st Contact Info) Description 08/11/2025 2:45 PM EST Office Visit [facility] Gastroenterology [address] [facility] [address] [place] [phone] Gabriela Fierro MD [address] [facility] [address] [place] [address] documented as of this encounter Visit Diagnoses Not on filedocumented in this encounter Care Teams Air Route Controller Relationship Specialty Start Date End Date Jw Askew MD [address] [place] [address] PCP - General Adolescent Medicine 09/05/22 Darcy Jamison PA-C [address] [place] [address] Gastroenterology 11/18/24 documented as of this encounter
--- OUTSIDE RECORDS SUMMARY | 2025-07-05 10:06 | XMS_ITS | Encounter Summary ---
Author Organization [employer] ([place], [place], [place], [place]) Address [address] [place] [address] Care Team Providers Care Steel Fixer Name Role Phone Jw Askew MD Primary Care Provider + [phone] Darcy Jamison PA-C Unavailable [phone] Encounter Details Date Type Department Care Team (Late st Contact Info) Description 12/22/2020 Transcribed Document [facility] [place] Family Medicine [address] [place] [address] ProviderCandi MD [address], [place] [phone] Social History Tobacco Use Types Packs/Day Years Used Date Smoking Tobacco: Never Assessed Comments Unknown Sex and Gender Information Value Date Recorded Sex Assigned at Not on file Legal Sex Female 7:01 PM CDT Gender Identity Not on file Sexual Orientation Not on file documented as of this encounter Miscellaneous Notes * Cerner Conversion Note - Candi ProviderMD - 12/22/2020 3:15 PM CDT [facility] Endo PACU Summary Primary Physician: GABRIELA FIERRO MD-GAE Finalized Date/Time: 12/22/20 16:44:33 Pt. Name: STORM VARINDER JAYLON /Sex: 1995 Female Med Rec #: [id number] Physician: GABRIELA FIERRO MD-GAE Financial #: [id number] Pt. Type: O Room/Bed: END/ Admit/Disch: 12/22/20 13:07:00 - Institution: [facility] Endo PACU Case Times Entry 1 In PACU I 12/22/20 16:00:00 Ready for PACU 12/22/20 16:44:00 Discharge Discharge from PACU 12/22/20 16:44:00 I Last Modified By: Lucia Portillo, RUFUS 12/22/20 16:44:31 [facility] Endo PACU Case Times Audit 12/22/20 16:44:31 Industrial Psychology Teacher: [id number] Modifier: [id number] <+> 1 Ready for PACU Discharge <+> 1 Discharge from PACU I Finalized By: Lucia Portillo, RN Document Signatures Signed By: Lucia Portillo RN 12/22/20 16:44 Electronically signed by Bre [facility] Conversion Churn Tender Cerner at 12/27/2022 6:37 PM CDT documented in this encounter Plan of Treatment Upcoming Encounters Date Type Department Care Team (Late st Contact Info) Description 08/11/2025 2:45 PM EST Office Visit [facility] Gastroenterology [address] [facility] [address] [place], [place] [phone] Gabriela Fierro MD [address] [facility] [address] [place] [address] documented as of this encounter Visit Diagnoses Not on filedocumented in this encounter Care Teams Steel Fixer Relationship Specialty Start Date End Date Jw Askew MD [address] [place] [address] PCP - General Adolescent Medicine 09/05/22 Darcy Jamison PA-C [address] [place] [address] Gastroenterology 11/18/24 documented as of this encounter
== END 2025-07-02 23:59 ==
LOC: LAB.DROPOF 07-05 09:57
PROVIDERS: PCP Physician Assistant; Visit Provider Nurse Practitioner
DX: J06.9 Acute upper respiratory infection, unspecified (principal); J02.9 Acute pharyngitis, unspecified
CPT/HCPCS: 87631